=== PATIENT | female | born 1945 | race Caucasian/White ===

== ENCOUNTER 2018-01-02 12:01 | Emergency (ER) | payer MEDICARE, SELFPAY ==
[2018-01-02 12:02] VITALS: BP 154/73; PULSE 82; RESP 17; TEMP 36.6; O2SAT 98; BMI 41.8
--- NOTE | 2018-01-02 12:24 | ED.VISSUMM ---
- ER Visit Summary Date of Service: 01/02/18 Chief Complaint: Lower extremity cellulitis History of Present Illness: The patient is a 72 F cellulitis in the left leg a year ago. Patient states that she developed redness, swelling and discomfort left lower leg. She has had some chills but no fever. No history of DVT or PE. No recent travel, surgery or mobilization. Physical Examination: Well appearing older female. Vital signs stable afebrile. Does not look septic or toxic. No acute distress. HEENT exam unremarkable. Neck nontender. Lungs clear to auscultation bilaterally. Heart regular rate and rhythm no murmur. Abdomen soft nontender. Normal bowel sounds no peritoneal signs. She is moving all 4 extremities. They are neurovascularly intact. Her left lower leg is red and swollen consistent with cellulitis. It is warm to the touch. There is mild tenderness. There is no crepitance. No subcu air. No sloughing of skin. The left foot is neurovascular intact with palpable DP pulse. Clinically this looks like cellulitis. She has no DVT or or PE risk factors or history. There is no cords. The calf itself is not specifically tender. Right lower extremities unremarkable. Neurologic exam is normal. Test Results: None Emergency Department Course and Treatment: Had a similar event last June. Was treated as an outpatient. Clinically she appears to be capable of being treated as an outpatient. Her vital signs are stable. She is afebrile. She clinically looks good. She was placed on Keflex and Bactrim both for 10 days and follow-up with primary care physician Dr. Ahumada Treatment Plan: Keflex 4 times daily for 10 days. Bactrim twice daily for 10 days. Return if worse. Disposition: Discharge Impression: Acute left lower extremity cellulitis This note was generated with [employer] dictation software. It may contain incorrect words, spelling, and punctuation that were not noted in review of the chart prior to signing ED Disposition - Plan for ED Patient: Chief Complaint: Lower Extremity Injury Referrals: Suzie Huff MD [Primary Care Provider] -
--- NOTE | 2018-01-02 12:27 | ED.DEP ---
ED Disposition - Plan for ED Patient: Disposition: Home or Assisted Living Chief Complaint: Lower Extremity Injury Instructions: ED Infec Skin Cellulitis Prescriptions: Cephalexin [Keflex] 500 mg PO Q6 #40 cap Smz/Tmp Ds [Bactrim Ds] 1 tab PO BID #20 tab Referrals: Suzie Huff MD [Primary Care Provider] - 3-5 Days if not improving Additional Instructions: If infection is getting worse such as redness coming up her leg or you are feeling worse ER you may need to be admitted for IV antibiotics. Take both antibiotics the Keflex 1 pill 4 times a day and Bactrim 1 pill twice a day and that should take care of this infection. Follow-up with your primary care physician if not improving.
[2018-01-02] MEDS: Smz/Tmp Ds Tablet 1 TABLET PO (12:30)
[2018-01-02] MEDS: Cephalexin 250 MG Capsule 500 MG PO (12:30)
[2018-01-02 12:49] VITALS: PULSE 80; RESP 19; O2SAT 94
== END 2018-01-02 12:50 | disposition home or self-care (01) ==
LOC: ED 12:39
PROVIDERS: Emergency Provider Emergency Medicine; PCP Internal Medicine
DX: L03.116 Cellulitis of left lower limb (principal); B96.89 Other specified bacterial agents as the cause of diseases classified elsewhere; E03.9 Hypothyroidism, unspecified; Z79.899 Other long term (current) drug therapy
CPT/HCPCS: 99283

== ENCOUNTER → 2018-09-09 14:12 | Outpatient (CLI) | payer MEDICARE, SELFPAY ==
[2018-09-09 15:59] LABS: Absolute Lymphocyte Count 1.34 X10^3/ul (0.83-4.51); Absolute Neutrophil Count 3.7 X10^3/uL (2.0-7.7); Basophil# 0.01 X10^3/uL; Basophil% 0.2 % (0-1); Eosinophil# 0.21 X10^3/uL; Eosinophils% 3.7 % (0-5); Hematocrit 39.3 % (37-47); Hemoglobin 12.9 g/dl (12.0-15.0); Lymphocyte # 1.34 X10^3/ul (4.0); Lymphocyte % 23.3 % (19-41); Mean Corp Hgb Conc 32.8 g/gl (32-36); Mean Corpuscular Hgb 31.2 pg (27.0-32.0); Mean Corpuscular Volume 94.9 fL (81-99); Monocyte# 0.51 X10^3/uL; Monocyte% 8.9 % (0-10); Neutrophil # 3.67 X10^3/uL (2.7-7.7); Neutrophil % 63.7 % (47-70); Platelet Count 243 K/mm3 (150-450); RBC Distribution Width CV 12.8 % (11.6-14.6); Red Blood Count 4.14 M/mm3 (4.2-5.4); White Blood Count 5.8 K/mm3 (4.4-11.0)
[2018-09-09 16:01] LABS: POSITIVE COUNT NO; POSITIVE DIFFERENTIAL NO; POSITIVE MORPHOLOGY NO
[2018-09-09 16:36] LABS: AST(SGOT) 16 U/L (15-37); Alanine Aminotransfer ALT/SGPT 16 U/L (13-56); Albumin, Serum 3.3 g/dL (3.2-5.0); Alkaline Phosphatase 116 U/L (45-117); Bilirubin, Direct 0.09 mg/dL (0.00-0.30); Globulin 4.3 g/dL (2.2-4.2); Protein, Total 7.6 g/dL (6.4-8.2)
[2018-09-09 17:20] LABS: HIV - WCH Non-Reactive (Nonreactive)
--- OUTSIDE RECORDS SUMMARY | 2018-10-22 11:47 | XMS RPT_ITS ---
:1945 Author Organization [facility] Care Team Providers Name Role Phone SUZIE GREEN Attending Unavailable LARA WONG Referring Unavailable NICHO AVINA (INTERNATIONAL GUEST COORDINATOR) Attending Unavailable GANTA, SUZIE Referring Unavailable NICHO AVINA (INTERNATIONAL GUEST COORDINATOR) Referring Unavailable GANTA, SUZIE Referring Unavailable GANTA, SUZIE Attending Unavailable GANTA, SUZIE Referring Unavailable GANTA, SUZIE Referring Unavailable GANTA, SUZIE Attending Unavailable GANTA, SUZIE Referring Unavailable BRANDEE SLOAN (IRONWORKER WIRE FENCE ERECTOR) Attending Unavailable BRANDEE SLOAN (IRONWORKER WIRE FENCE ERECTOR) Referring Unavailable Frank Rome Attending Unavailable Frank Rome Referring Unavailable Ganta, Suzie Primary Care Unavailable Primay Care Physicia, No Primary Care Unavailable Hector Bazan Attending Unavailable PROBLEMS PROBLEMS DATE TYPE CONDITION / CODE ATTENDING STATUS SOURCE 09/27/2018 Active Other chest pain NA Active [facility] / R07.89(ICD-10) [place] Repository 09/09/2018 Unknown Z79.899 - Other Frank Rome Active [facility]current[facility] therapy / Repository Z79.899(ICD-10) 09/09/2018 Unknown L40.0 - Psoriasis Frank Rome Active [facility] vulgaris / Community L40.0(ICD-10) Hospital Repository 09/09/2018 Unknown L30.8 - Other Frank Rome Active [facility] dermatitis / Hospital L30.8(ICD-10) Repository 09/09/2018 Unknown L29.8 - Other Frank Rome Active [facility] pruritus / Community L29.8(ICD-10) Hospital Repository 04/22/2018 Active Encounter for NA Active [facility] screening [place] mammogram for Repository malignant neoplasm of breast / Z12.31(ICD-10) 03/18/2018 Active Unknown / SUZIE GREEN Active [facility] UNK(Unknown) [place] Repository 12/10/2015 Active Hypothyroidism, NA Active [facility] unspecified / [place] E03.9(ICD-10) Repository 11/18/2013 Active Vitamin D NA Active [facility] deficiency, [place] unspecified / Repository E55.9(ICD-10) 02/25/2018 Active Prediabetes / NA Active [facility] R73.03(ICD-10) [place] Rep[facility] 01/08/2018 Active Localized edema / NA Active [facility] R60.0(ICD-10) [place] Repository 01/08/2018 Active Pain in left NA Active [facility] lower leg / [place] M79.662(ICD-10) Repository PROCEDURES PROCEDURES No Procedure Records FoundRESULTS RESULTS CNOV Observed: 09/27/2018 Status: COMPLETED Source: [place] 3:00 PM [facility] REPOSITORY Office Visit (INTMWS) NIKI WRIGHT ([id number]) 1945 F Date Time Provider Department 09/27/18 3:00 PM BRANDEE SLOAN ([facility]) INTMWS During your visit today, we recorded the following information about you: Pulse Respiration Blood pressure Weight 72/minute 16/minute 126/53 107.5 kg Brandee Sloan APRN.CNS 09/27/2018 3:52 PM Signed OUTPATIENT VISIT DATE September 27, 2018 OUTPATIENT VISIT TYPE ESTABLISHED PRIMARY CARE PHYSICIAN: SUZIE GREEN MD CHIEF COMPLAINT: Patient presents with: High blood pressure History of Present Illness: Niki Wright is a 73 year old female who was last seen 09/18/2018. She has been seen in the past for ACTIVE PROBLEM LIST Other Atopic Dermatitis Vitamin D Deficiency Low Back Pain Acquired Hypothyroidism ANNALISA (obstructive sleep apnea) AHI 17, 50 in rem Essential Hypertension Bmi 40.0-44.9, Adult (Hcc) Impaired Glucose Metabolism Since the last visit, she states that earlier this week she has not been driving. Was sitting and resting for about 30 minutes after driving when she felt a heavy sensation in her substernal chest area. She reports it felt like a brick This was about 2 hours after lunch and persisted for about 2 hours. She reports her face felt hot when this occurred. Without report of headache, palpitations, shortness of breath, edema, presyncope or syncope. Unknown what blood pressure was at this time and she was in her car. She reports home blood pressures have been running in the 150 systolic range when checked. She noted eating vegetables and chicken and lettuce for lunch. Nelson improved with Advil and burping. No nausea or vomiting reported. No abdominal pain or reflux reported. She reports stable shortness of breath with 1 flight of stairs. Able to walk a flat surface unlimited by chest pain or shortness of breath. she reports currently with social stressors. Last 3 Encounter BP Readings: Date: BP: 09/18/2018 130/60 03/18/2018 104/58 01/08/2018 112/62 She reports left-sided chest wall pain about 18 months ago. Stress test was completed at [facility] and was negative. Current chest pain feels different, prior radiated to her neck and left arm. No recent hospital or ED visits. No new medical problems or medications. Able to obtain medications. No problems with taking medications or note side effects. PAST MEDICAL HISTORY Diagnosis Date - Acute pyelonephritis 08/01/2016 - Cervical disc disorder with radiculopathy 08/01/2016 - Diverticulosis of colon (without mention of hemorrhage) - Edema 02/05/2007 Left Leg Edema - Internal hemorrhoids without mention of complication - ANNALISA (obstructive sleep apnea) [employer] for Auto PAP machine - Osteoarthritis of spine with radiculopathy, cervical region 08/01/2016 - Other psoriasis - Psoriasis 03/07/2016 - Sciatica 08/16/2009 - Unspecified hypothyroidism Hypothyroidism PAST SURGICAL HISTORY Procedure Laterality Date - COLONOSCOP W/ OR W/O [facility] SPEC 03/31/09 - LIGATE FALLOPIAN TUBE Tubal ligation - PAST SURGICAL HISTORY OF 06/05/2006 Right shouler arrthroscopy rot cuff repair - PAST SURGICAL HISTORY OF 2008 left foot- bone spur FAMILY HISTORY Problem Relation Age of Onset - Breast Cancer Mother - Cancer Father esophagus - Cancer Sister ovaries Social History Substance Use Topics - Smoking status: Passive Smoke Exposure - Never Smoker - Smokeless tobacco: Never 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 COMPOUNDED PRESCRIPTION Knee high compression stocking left leg 20-30 mmHg Dx: M79.662, ,79.89 CPAP Initiate Auto PAP @ 5/20 cm of water with humidification. Heated humidity. Mask (per patient preference) optional chin strap (if indicated) , filters, tubing, humidifier and lifetime supplies. levothyroxine (SYNTHROID) 200 mcg tablet Take 1 tablet by mouth daily before breakfast. spironolactone-hctz 25/25 (ALDACTAZIDE) 25-25 mg per tablet take 1 tablet by mouth once daily triamcinolone acetonide (KENALOG) 0.1 % ointment Apply 1 application to affected area once daily as needed. amLODIPine (NORVASC) 2.5 mg tablet Take 1 tablet by mouth once daily. omeprazole (PRILOSEC) 20 mg capsule Take 1 capsule by mouth daily before breakfast. 1/2 hr before meal. REVIEW OF SYSTEMS: GENERAL: Negative for: Weight loss or gain, Fever or Chills, Weakness and Sleep difficulties. Physical Examination: BP 126/53[TruBP average[ Pulse 72 Resp 16 Wt 237 lb (107.5kg) LMP 04/14/2007 General appearance: Well appearing, alert, in no acute distress, well-hydrated, well nourished. Skin: Skin color, texture, turgor normal, no suspicious rashes or lesions Neck: Supple, no adenopathy; thyroid symmetric, normal size, no bruits, no JVD Lungs: Lungs clear to auscultation. No wheezing, rhonchi, rales Heart: RRR without murmur, gallop, or rubs. Abdomen:Abdomen soft, non-tender. Bowel sounds normal. No masses, organomegaly Extremities: No , edema, skin discoloration, clubbing or cyanosis. Good capillary refill. Musculoskeletal: Chest pain is not reproducible by palpation Peripheral pulses: Normal Neuro: Gait normal. Sensation grossly intact. Reviewed chart, outside records, tests I personally interviewed, confirmed and edited the above information if obtained by others. TESTING: Glucose (mg/dL) Date Value 02/26/2017 105 Potassium (mmol/L) Date Value 02/26/2017 4.0 Sodium (mmol/L) Date Value 02/26/2017 137 Chloride (mmol/L) Date Value 02/26/2017 98 CO2 (mmol/L) Date Value 02/26/2017 25 Creatinine (mg/dL) Date Value 02/26/2017 0.87 Creatinine, Whole Blood (iSTAT) (mg/dL) Date Value 06/21/2017 0.90 BUN (mg/dL) Date Value 02/26/2017 19 Anion Gap (mmol/L) Date Value 02/26/2017 14 Calcium (mg/dL) Date Value 02/26/2017 9.4 Glucose (mg/dL) Date Value 02/26/2017 105 Potassium (mmol/L) Date Value 02/26/2017 4.0 Sodium (mmol/L) Date Value 02/26/2017 137 Chloride (mmol/L) Date Value 02/26/2017 98 CO2 (mmol/L) Date Value 02/26/2017 25 Creatinine (mg/dL) Date Value 02/26/2017 0.87 Creatinine, Whole Blood (iSTAT) (mg/dL) Date Value 06/21/2017 0.90 BUN (mg/dL) Date Value 02/26/2017 19 Anion Gap (mmol/L) Date Value 02/26/2017 14 Calcium (mg/dL) Date Value 02/26/2017 9.4 Protein, Total (g/dL) Date Value 02/29/2016 Test sent to [facility]. Albumin (g/dL) Date Value 02/29/2016 Test sent to [facility]. Bilirubin, Total (mg/dL) Date Value 02/29/2016 Test sent to [facility]. Alkaline Phosphatase (U/L) Date Value 02/29/2016 Test sent to [facility]. AST (U/L) Date Value 02/29/2016 Test sent to [facility]. ALT (U/L) Date Value 02/29/2016 Test sent to [facility]. Hemoglobin (g/dL) Date Value 02/29/2016 Test sent to [facility]. Hematocrit (%) Date Value 02/29/2016 Test sent to [facility]. WBC (k/uL) Date Value 02/29/2016 Test sent to [facility]. Cholesterol, Total (mg/dL) Date Value 02/29/2016 Test sent to [facility]. HDL Cholesterol (mg/dL) Date Value 02/29/2016 Test sent to [facility]. LDL Cholesterol (mg/dL) Date Value 02/29/2016 Test sent to [facility]. Triglyceride (mg/dL) Date Value 02/29/2016 Test sent to [facility]. Hemoglobin A1C Date Value Ref Range Status 02/25/2018 5.5 4.3 - 5.6 % Final 03/01/2017 5.7 (H) 4.3 - 5.6 % Final Comment: [place] [employer] guidelines indicate that patients with HgbA1c in the range 5.7-6.4% are at increased risk for development of diabetes, and intervention by lifestyle modification may be beneficial. HgbA1c greater or equal to 6.5% is considered diagnostic of diabetes. Ejection Fraction: No results found IMPRESSION: Ms. Wright is a 73 year old woman presents with report of elevated blood pressures at home and atypical chest pain After my examination and review of data, I make the following recommendations. PLAN AND RECOMMENDATIONS: 1. Atypical chest pain - ICD9: 786.59, ICD10: R07.89 (primary diagnosis) Nonexertional, possible heartburn or reflux. Will trial PPI ?1 month to see if this prevents recurrence May also be due to elevation of blood pressure, does have elevations on arrival to office, normalizes after seated for a period of time EKG in office shows normal sinus rhythm without signs of ischemia ventricular rate 71 bpm OK interval 160 ms QRS duration 86 ms QTc 423 ms Stress test completed approximately 18 months ago at [facility] was negative for ischemia - ECG COMPLETE W INTERPRETATION - AMLODIPINE 2.5 MG TABLET 2. Essential hypertension - ICD9: 401.9, ICD10: I10 - Add amlodipine 2.5mg - Encourage dietary sodium restriction/DASH diet - Recommend regular aerobic exercise. - Recommend home blood pressure monitoring, to bring results in on next visit - Goal of BP <130/80 - AMLODIPINE 2.5 MG TABLET Advised: Take omeprazole once daily for one month then discontinue. Avoid foods that cause GI upset such as beverages with caffeine - coffee cola tea and alcohol Take amlodipine 2.5 mg once daily for blood pressure Check blood pressure once daily. Stop taking if feeling fatigued, dizzy or systolic blood pressure (top number) is less than 100 and call the office / nurse to let us know Return to clinic one month for recheck of blood pressure and symptoms. Advised to go to ER if develops chest pain, shortness of breath, or severe worsening of symptoms. Discussed risks, benefits, alternatives, and potential side effects of medications. Ms. Wright expressed understanding and agreed with the plan. Brandee Sloan APRN.IRONWORKER WIRE FENCE ERECTOR Brandee Sloan APRN.ROB 09/27/2018 3:41 PM Signed Take omeprazole once daily for one month then discontinue. Avoid foods that cause GI upset such as beverages with caffeine - coffee cola tea and alcohol Take amlodipine 2.5 mg once daily for blood pressure Check blood pressure once daily. Stop taking if feeling fatigued, dizzy or systolic blood pressure (top number) is less than 100 and call the office / nurse to let us know Return to clinic one month for recheck of blood pressure and symptoms. Referring Provider: SELF [[id number]] Allergies As of Date: 09/27/2018 Noted Allergy Reaction GABAPENTIN 09/02/2015 1 - Mental Status Change Comments: dizzy PERCOCET (OXYCODONE-ACETAMINOPHEN)06/28/2006 8 - GI Upset 11 - Vomiting Date Reviewed: 09/27/2018 Reviewed by: Aleshia Conway LPN - Fully Assessed Reason for Visit: High blood pressure [2419] Primary Visit Diagnosis:Atypical chest pain [R07.89] Other Visit Diagnosis:Essential hypertension [I10] Order(s):ECG COMPLETE W INTERPRETATION [ECG01] Order #: [id number] FUTURE omeprazole (PRILOSEC) 20 mg capsuleTake 1 capsule by mouth daily before breakfast. 1/2 hr before meal.Disp: 30 capsuleRfl: 0 amLODIPine (NORVASC) 2.5 mg tabletTake 1 tablet by mouth once daily.Disp: 30 tabletRfl: 2 Prescriptions as of 09/27/2018 Sig: CHOLECALCIFEROL (VITAMIN D3) * Take 1 tablet by mouth once d* COMPOUNDED PRESCRIPTION Knee high compression stockin* CPAP Initiate Auto PAP @ 5/20 cm o* LEVOTHYROXINE 200 MCG TABLET Take 1 tablet by mouth daily * SPIRONOLACTONE 25 MG-HYDROCHL* take 1 tablet by mouth once d* TRIAMCINOLONE ACETONIDE 0.1 %* Apply 1 application to affect* AMLODIPINE 2.5 MG TABLET Take 1 tablet by mouth once d* OMEPRAZOLE 20 MG CAPSULE,SY* Take 1 capsule by mouth daily* Problem List As Of Date 09/27/2018 Noted Resolved HYPOTHYROIDISM NOS [E03.9] INVALID FOR*12/11/2007 SPRAIN SHOULDER/ARM NOS [S43.409A, S46.919A] INVALID FOR*12/11/2007 SPRAIN ROTATOR CUFF [S43.429A] INVALID FOR*12/11/2007 Other psoriasis [L40.8] 03/07/2016 SURGERY FOLLOWUP NOS [Z09] INVALID FOR*12/11/2007 Edema [R60.9] INVALID FOR*03/01/2017 More... ECZEMATOUS DERMATITIS NOS [L25.9] INVALID FOR*12/10/2015 Other atopic dermatitis [L20.89] INVALID FOR* Unspecified pruritic disorder [L29.9] INVALID FOR*11/17/2013 EXCORIATION////SUPERFICIAL INJURY NEC [T07.XXXA]INVALID FOR*12/10/2015 Pyoderma, unspecified [L08.0] INVALID FOR*03/01/2017 XEROSIS///SEBACEOUS GLAND DIS NEC [L73.8] INVALID FOR*03/01/2017 HYPOTHYROIDISM NOS [E03.9] 12/10/2015 More... INTERTRIGO///ERYTHEMATOUS COND NEC [L53.8] INVALID FOR*12/10/2015 Dizziness and giddiness [R42] INVALID FOR*11/17/2013 Sciatica [M54.30] INVALID FOR*03/01/2017 More... Vitamin D deficiency [E55.9] INVALID FOR* More... Low back pain [M54.5] INVALID FOR* Acquired hypothyroidism [E03.9] INVALID FOR* Psoriasis [L40.9] INVALID FOR*03/01/2017 ANNALISA (obstructive sleep apnea) AHI 17, 50 in re*INVALID FOR* More... Acute pyelonephritis [N10] INVALID FOR*03/01/2017 Essential hypertension [I10] INVALID FOR* Osteoarthritis of spine with radiculopathy, cer*INVALID FOR*03/01/2017 Arm paresthesia, left [R20.2] INVALID FOR*03/01/2017 Cervical disc disorder with radiculopathy [M50.*INVALID FOR*03/01/2017 BMI 40.0-44.9, adult (HCC) [Z68.41] INVALID FOR* Impaired glucose metabolism [R73.09] INVALID FOR* Other instructions from your clinician: Take omeprazole once daily for one month then discontinue. Avoid foods that cause GI upset such as beverages with caffeine - coffee cola tea and alcohol Take amlodipine 2.5 mg once daily for blood pressure Check blood pressure once daily. Stop taking if feeling fatigued, dizzy or systolic blood pressure (top number) is less than 100 and call the office / nurse to let us know Return to clinic one month for recheck of blood pressure and symptoms. Prescriptions ordered this encounter Disp Refills Start End OMEPRAZOLE 20 MG CAPSULE,DELAYED REL* 30 c* 0 09/27/2018 Route: ORAL Sig: Take 1 capsule by mouth daily before breakfast. 1/2 hr before meal. AMLODIPINE 2.5 MG TABLET 30 t* 2 09/27/2018 Route: ORAL Sig: Take 1 tablet by mouth once daily. Encounter Status:Closed by BRANDEE HAYES on 09/27/18 PROGRESS Observed: 09/27/2018 Status: COMPLETED Source: [place] 2:48 PM [facility] REPOSITORY HNO ID: [id number] Author: Brandee (Rob) Luther Service: (none) Author Type: Nurse Specialist Type: Progress Notes Filed: 09/27/2018 3:52 PM Note Text: OUTPATIENT VISIT DATE September 27, 2018 OUTPATIENT VISIT TYPE ESTABLISHED PRIMARY CARE PHYSICIAN: SUZIE GREEN MD CHIEF COMPLAINT: Patient presents with: High blood pressure History of Present Illness: Niki Wright is a 73 year old female who was last seen 09/18/2018. She has been seen in the past for ACTIVE PROBLEM LIST Other Atopic Dermatitis Vitamin D Deficiency Low Back Pain Acquired Hypothyroidism ANNALISA (obstructive sleep apnea) AHI 17, 50 in rem Essential Hypertension Bmi 40.0-44.9, Adult (Hcc) Impaired Glucose Metabolism Since the last visit, she states that earlier this week she has not been driving. Was sitting and resting for about 30 minutes after driving when she felt a heavy sensation in her substernal chest area. She reports it felt like a brick This was about 2 hours after lunch and persisted for about 2 hours. She reports her face felt hot when this occurred. Without report of headache, palpitations, shortness of breath, edema, presyncope or syncope. Unknown what blood pressure was at this time and she was in her car. She reports home blood pressures have been running in the 150 systolic range when checked. She noted eating vegetables and chicken and lettuce for lunch. Nelson improved with Advil and burping. No nausea or vomiting reported. No abdominal pain or reflux reported. She reports stable shortness of breath with 1 flight of stairs. Able to walk a flat surface unlimited by chest pain or shortness of breath. she reports currently with social stressors. Last 3 Encounter BP Readings: Date: BP: 09/18/2018 130/60 03/18/2018 104/58 01/08/2018 112/62 She reports left-sided chest wall pain about 18 months ago. Stress test was completed at [facility] and was negative. Current chest pain feels different, prior radiated to her neck and left arm. No recent hospital or ED visits. No new medical problems or medications. Able to obtain medications. No problems with taking medications or note side effects. PAST MEDICAL HISTORY Diagnosis Date - Acute pyelonephritis 08/01/2016 - Cervical disc disorder with radiculopathy 08/01/2016 - Diverticulosis of colon (without mention of hemorrhage) - Edema 02/05/2007 Left Leg Edema - Internal hemorrhoids without mention of complication - ANNALISA (obstructive sleep apnea) [facility] for Auto PAP machine - Osteoarthritis of spine with radiculopathy, cervical region 08/01/2016 - Other psoriasis - Psoriasis 03/07/2016 - Sciatica 08/16/2009 - Unspecified hypothyroidism Hypothyroidism PAST SURGICAL HISTORY Procedure Laterality Date - COLONOSCOP W/ OR W/O [facility] SPEC 03/31/09 - LIGATE FALLOPIAN TUBE Tubal ligation - PAST SURGICAL HISTORY OF 06/05/2006 Right shouler arrthroscopy rot cuff repair - PAST SURGICAL HISTORY OF 2008 left foot- bone spur FAMILY HISTORY Problem Relation Age of Onset - Breast Cancer Mother - Cancer Father esophagus - Cancer Sister ovaries Social History Substance Use Topics - Smoking status: Passive Smoke Exposure - Never Smoker - Smokeless tobacco: Never 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 COMPOUNDED PRESCRIPTION Knee high compression stocking left leg 20-30 mmHg Dx: M79.662, ,79.89 CPAP Initiate Auto PAP @ 5/20 cm of water with humidification. Heated humidity. Mask (per patient preference) optional chin strap (if indicated) , filters, tubing, humidifier and lifetime supplies. levothyroxine (SYNTHROID) 200 mcg tablet Take 1 tablet by mouth daily before breakfast. spironolactone-hctz 25/25 (ALDACTAZIDE) 25-25 mg per tablet take 1 tablet by mouth once daily triamcinolone acetonide (KENALOG) 0.1 % ointment Apply 1 application to affected area once daily as needed. amLODIPine (NORVASC) 2.5 mg tablet Take 1 tablet by mouth once daily. omeprazole (PRILOSEC) 20 mg capsule Take 1 capsule by mouth daily before breakfast. 1/2 hr before meal. REVIEW OF SYSTEMS: GENERAL: Negative for: Weight loss or gain, Fever or Chills, Weakness and Sleep difficulties. Physical Examination: BP 126/53[TruBP average[ Pulse 72 Resp 16 Wt 237 lb (107.5kg) LMP 04/14/2007 General appearance: Well appearing, alert, in no acute distress, well-hydrated, well nourished. Skin: Skin color, texture, turgor normal, no suspicious rashes or lesions Neck: Supple, no adenopathy; thyroid symmetric, normal size, no bruits, no JVD Lungs: Lungs clear to auscultation. No wheezing, rhonchi, rales Heart: RRR without murmur, gallop, or rubs. Abdomen:Abdomen soft, non-tender. Bowel sounds normal. No masses, organomegaly Extremities: No , edema, skin discoloration, clubbing or cyanosis. Good capillary refill. Musculoskeletal: Chest pain is not reproducible by palpation Peripheral pulses: Normal Neuro: Gait normal. Sensation grossly intact. Reviewed chart, outside records, tests I personally interviewed, confirmed and edited the above information if obtained by others. TESTING: Glucose (mg/dL) Date Value 02/26/2017 105 Potassium (mmol/L) Date Value 02/26/2017 4.0 Sodium (mmol/L) Date Value 02/26/2017 137 Chloride (mmol/L) Date Value 02/26/2017 98 CO2 (mmol/L) Date Value 02/26/2017 25 Creatinine (mg/dL) Date Value 02/26/2017 0.87 Creatinine, Whole Blood (iSTAT) (mg/dL) Date Value 06/21/2017 0.90 BUN (mg/dL) Date Value 02/26/2017 19 Anion Gap (mmol/L) Date Value 02/26/2017 14 Calcium (mg/dL) Date Value 02/26/2017 9.4 Glucose (mg/dL) Date Value 02/26/2017 105 Potassium (mmol/L) Date Value 02/26/2017 4.0 Sodium (mmol/L) Date Value 02/26/2017 137 Chloride (mmol/L) Date Value 02/26/2017 98 CO2 (mmol/L) Date Value 02/26/2017 25 Creatinine (mg/dL) Date Value 02/26/2017 0.87 Creatinine, Whole Blood (iSTAT) (mg/dL) Date Value 06/21/2017 0.90 BUN (mg/dL) Date Value 02/26/2017 19 Anion Gap (mmol/L) Date Value 02/26/2017 14 Calcium (mg/dL) Date Value 02/26/2017 9.4 Protein, Total (g/dL) Date Value 02/29/2016 Test sent to [facility]. Albumin (g/dL) Date Value 02/29/2016 Test sent to [facility]. Bilirubin, Total (mg/dL) Date Value 02/29/2016 Test sent to [facility]. Alkaline Phosphatase (U/L) Date Value 02/29/2016 Test sent to [facility]. AST (U/L) Date Value 02/29/2016 Test sent to [facility]. ALT (U/L) Date Value 02/29/2016 Test sent to [facility]. Hemoglobin (g/dL) Date Value 02/29/2016 Test sent to [facility]. Hematocrit (%) Date Value 02/29/2016 Test sent to [facility]. WBC (k/uL) Date Value 02/29/2016 Test sent to [facility]. Cholesterol, Total (mg/dL) Date Value 02/29/2016 Test sent to [facility]. HDL Cholesterol (mg/dL) Date Value 02/29/2016 Test sent to [facility]. LDL Cholesterol (mg/dL) Date Value 02/29/2016 Test sent to [facility]. Triglyceride (mg/dL) Date Value 02/29/2016 Test sent to [facility]. Hemoglobin A1C Date Value Ref Range Status 02/25/2018 5.5 4.3 - 5.6 % Final 03/01/2017 5.7 (H) 4.3 - 5.6 % Final Comment: [place] [employer] guidelines indicate that patients with HgbA1c in the range 5.7-6.4% are at increased risk for development of diabetes, and intervention by lifestyle modification may be beneficial. HgbA1c greater or equal to 6.5% is considered diagnostic of diabetes. Ejection Fraction: No results found IMPRESSION: Ms. Wright is a 73 year old woman presents with report of elevated blood pressures at home and atypical chest pain After my examination and review of data, I make the following recommendations. PLAN AND RECOMMENDATIONS: 1. Atypical chest pain - ICD9: 786.59, ICD10: R07.89 (primary diagnosis) Nonexertional, possible heartburn or reflux. Will trial PPI ?1 month to see if this prevents recurrence May also be due to elevation of blood pressure, does have elevations on arrival to office, normalizes after seated for a period of time EKG in office shows normal sinus rhythm without signs of ischemia ventricular rate 71 bpm OK interval 160 ms QRS duration 86 ms QTc 423 ms Stress test completed approximately 18 months ago at [facility] was negative for ischemia - ECG COMPLETE W INTERPRETATION - AMLODIPINE 2.5 MG TABLET 2. Essential hypertension - ICD9: 401.9, ICD10: I10 - Add amlodipine 2.5mg - Encourage dietary sodium restriction/DASH diet - Recommend regular aerobic exercise. - Recommend home blood pressure monitoring, to bring results in on next visit - Goal of BP <130/80 - AMLODIPINE 2.5 MG TABLET Advised: Take omeprazole once daily for one month then discontinue. Avoid foods that cause GI upset such as beverages with caffeine - coffee cola tea and alcohol Take amlodipine 2.5 mg once daily for blood pressure Check blood pressure once daily. Stop taking if feeling fatigued, dizzy or systolic blood pressure (top number) is less than 100 and call the office / nurse to let us know Return to clinic one month for recheck of blood pressure and symptoms. Advised to go to ER if develops chest pain, shortness of breath, or severe worsening of symptoms. Discussed risks, benefits, alternatives, and potential side effects of medications. Ms. Wright expressed understanding and agreed with the plan. Brandee Sloan APRN.IRONWORKER WIRE FENCE ERECTOR PROGRESS Observed: 09/18/2018 Status: COMPLETED Source: [place] 9:55 AM [facility] REPOSITORY HNO ID: [id number] Author: Suzie Green Service: (none) Author Type: Physician Type: Progress Notes Filed: 09/18/2018 5:41 PM Note Text: Reason for Visit Patient presents with: Established Patient: 6 month follow up-labs Niki Wright is a 73 year old female who presents here today for Above Complaints.. Health Maintenance HEPATITIS C SCREENING DTAP,TDAP,TD(1 - Tdap) PAP EVERY 3 YEARS (65-80 YEARS OLD) HPI Niki Wright is a 71 year old female who presents for follow up of HTN, ANNALISA, Lisa D def, Thyroid, Dermatitis, and BMI elevated. Labs were done. ?Her glucose was elevated slightly, which is new. ? Has hypothyroidism on the current medication of 200 mcg she is doing well. 6 months ago tsh was normal at 1.7 her weight has been going up slowly she denies constipation, depression , low energy or dryness of skin. ? She has to give blood work for lipids ? BP is well controlled on current regimen of medicines -spironolactone 25/hctz25 which is tolerated well. No significant side effects. He bp is high because she has a lot stress at home, she is going to have a complete knee surgery, she has been having to help her son, and his children. She uses her cpap machine regularly, feels rested on it. I have a lot of blood work from Dr. Rome who checked her for hepc, hiv, hep b, tb , liver function, cbc were normal. Her hba1c was normal For the dermatitis she want me to refill the medication, ointment, Dr Rome wants to give her an injection but she is waiting to see what the insurance will cover. No problem-specific Assessment AND Plan notes found for this encounter. PAST MEDICAL HISTORY Diagnosis Date - Acute pyelonephritis 08/01/2016 - Cervical disc disorder with radiculopathy 08/01/2016 - Diverticulosis of colon (without mention of hemorrhage) - Edema 02/05/2007 Left Leg Edema - Internal hemorrhoids without mention of complication - ANNALISA (obstructive sleep apnea) [facility] for Auto PAP machine - Osteoarthritis of spine with radiculopathy, cervical region 08/01/2016 - Other psoriasis - Psoriasis 03/07/2016 - Sciatica 08/16/2009 - Unspecified hypothyroidism Hypothyroidism PAST SURGICAL HISTORY Procedure Laterality Date - COLONOSCOP W/ OR W/O [facility] SPEC 03/31/09 - LIGATE FALLOPIAN TUBE Tubal ligation - PAST SURGICAL HISTORY OF 06/05/2006 Right shouler arrthroscopy rot cuff repair - PAST SURGICAL HISTORY OF 2008 left foot- bone spur FAMILY HISTORY Problem Relation Age of Onset - Breast Cancer Mother - Cancer Father esophagus - Cancer Sister ovaries Social History Substance Use Topics - Smoking status: Passive Smoke Exposure - Never Smoker - Smokeless tobacco: Never 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 Pertinent Lab/Diagnostic Studies are reviewed and discussed today Current Outpatient Prescriptions: - cholecalciferol (VITAMIN D3) 5,000 unit tab - spironolactone-hctz 25/25 (ALDACTAZIDE) 25-25 mg per tablet - levothyroxine (SYNTHROID) 200 mcg tablet - COMPOUNDED PRESCRIPTION - CPAP - triamcinolone acetonide (KENALOG) 0.1 % ointment Review of Systems CONSTITUTIONAL: No fevers, chills night sweats, unintended weight loss CARDIOVASCULAR: No chest pain, dyspnea, palpitations, orthopnea, PND, ankle edema. PULM: No dyspnea, unexplained cough. GI: No dysphagia/odynophagia, problematic reflux, constipation, diarrhea, changes in stool habits, hematochezia, melena. : No new urinary complaints, including dysuria, gross hematuria or pyuria. NEURO: No new balance problems, peripheral weakness/paresthesias or numbness of concern. Physical Exam BP 140/60 (BP Site: Left Arm, BP Position: Sitting, BP Cuff Size: Large Adult) Pulse 74 Resp 14 Ht 156.2 cm (5' 1.5) Wt 108.9 kg (240 lb) LMP 04/14/2007 SpO2 100% BMI 44.61 kg/m? General appearance: Well appearing, alert, in no acute distress, well nourished. Skin: Skin color, texture, turgor normal, no suspicious rashes or lesions Head: Normocephalic, no masses, lesions, tenderness or abnormalities Eyes: Anicteric sclera. Pupils are equally round and reactive to light. Extraocular movements are intact. Lungs: Lungs clear to auscultation. No wheezing, rhonchi, rales Heart: RRR without murmur, gallop, or rubs. Extremities: No deformities, edema, skin discoloration, clubbing or cyanosis. Good capillary refill. ASSESSMENT/PLAN: 1. Acquired hypothyroidism - ICD9: 244.9, ICD10: E03.9 (primary diagnosis) - Instructed patient on importance of taking on an empty stomach either first thing in the morning or at bedtime. - TSH BLD 2. ANNALISA (obstructive sleep apnea) AHI 17, 50 in rem - ICD9: 327.23, ICD10: G47.33 To cont the cpap machine 3. Other atopic dermatitis - ICD9: 691.8, ICD10: L20.89 - Dry skin care instructions reviewed - Use mild soap like Dove, Aveeno or Cetaphil - limit shower/bath to less than 15 minutes with warm, not hot, water - BID use of recommended emollients such as Cetaphil, Eucerin Plus, Aveeno, Aquaphor - Follow up if symptoms persist or worsen. 4. Mixed hyperlipidemia - ICD9: 272.2, ICD10: E78.2 - good control - Continue current medication. - LIPID PANEL BASIC SUZIE GREEN MD CNOV Observed: 09/18/2018 Status: COMPLETED Source: [place] 9:40 AM [facility] RE[facility] Office Visit (INTMWS) NIKI WRIGHT ([id number]) 1945 F Date Time Provider Department 09/18/18 9:40 AM SUZIE GREEN INTMWS During your visit today, we recorded the following information about you: Pulse Respiration Blood pressure Weight 74/minute 14/minute 130/60 108.9 kg Height 1.562 m SUZIE GREEN MD 09/18/2018 5:41 PM Signed Reason for Visit Patient presents with: Established Patient: 6 month follow up-labs Niki Wright is a 73 year old female who presents here today for Above Complaints.. Health Maintenance HEPATITIS C SCREENING DTAP,TDAP,TD(1 - Tdap) PAP EVERY 3 YEARS (65-80 YEARS OLD) HPI Niki Wright is a 71 year old female who presents for follow up of HTN, ANNALISA, Lisa D def, Thyroid, Dermatitis, and BMI elevated. Labs were done. ?Her glucose was elevated slightly, which is new. ? Has hypothyroidism on the current medication of 200 mcg she is doing well. 6 months ago tsh was normal at 1.7 her weight has been going up slowly she denies constipation, depression , low energy or dryness of skin. ? She has to give blood work for lipids ? BP is well controlled on current regimen of medicines -spironolactone 25/hctz25 which is tolerated well. No significant side effects. He bp is high because she has a lot stress at home, she is going to have a complete knee surgery, she has been having to help her son, and his children. She uses her cpap machine regularly, feels rested on it. I have a lot of blood work from Dr. Rome who checked her for hepc, hiv, hep b, tb , liver function, cbc were normal. Her hba1c was normal For the dermatitis she want me to refill the medication, ointment, Dr Rome wants to give her an injection but she is waiting to see what the insurance will cover. No problem-specific Assessment AND Plan notes found for this encounter. PAST MEDICAL HISTORY Diagnosis Date - Acute pyelonephritis 08/01/2016 - Cervical disc disorder with radiculopathy 08/01/2016 - Diverticulosis of colon (without mention of hemorrhage) - Edema 02/05/2007 Left Leg Edema - Internal hemorrhoids without mention of complication - ANNALISA (obstructive sleep apnea) [facility] [employer] for Auto PAP machine - Osteoarthritis of spine with radiculopathy, cervical region 08/01/2016 - Other psoriasis - Psoriasis 03/07/2016 - Sciatica 08/16/2009 - Unspecified hypothyroidism Hypothyroidism PAST SURGICAL HISTORY Procedure Laterality Date - COLONOSCOP W/ OR W/O [facility] SPEC 03/31/09 - LIGATE FALLOPIAN TUBE Tubal ligation - PAST SURGICAL HISTORY OF 06/05/2006 Right shouler arrthroscopy rot cuff repair - PAST SURGICAL HISTORY OF 2008 left foot- bone spur FAMILY HISTORY Problem Relation Age of Onset - Breast Cancer Mother - Cancer Father esophagus - Cancer Sister ovaries Social History Substance Use Topics - Smoking status: Passive Smoke Exposure - Never Smoker - Smokeless tobacco: Never 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 Pertinent Lab/Diagnostic Studies are reviewed and discussed today Current Outpatient Prescriptions: - cholecalciferol (VITAMIN D3) 5,000 unit tab - spironolactone-hctz 25/25 (ALDACTAZIDE) 25-25 mg per tablet - levothyroxine (SYNTHROID) 200 mcg tablet - COMPOUNDED PRESCRIPTION - CPAP - triamcinolone acetonide (KENALOG) 0.1 % ointment Review of Systems CONSTITUTIONAL: No fevers, chills night sweats, unintended weight loss CARDIOVASCULAR: No chest pain, dyspnea, palpitations, orthopnea, PND, ankle edema. PULM: No dyspnea, unexplained cough. GI: No dysphagia/odynophagia, problematic reflux, constipation, diarrhea, changes in stool habits, hematochezia, melena. : No new urinary complaints, including dysuria, gross hematuria or pyuria. NEURO: No new balance problems, peripheral weakness/paresthesias or numbness of concern. Physical Exam BP 140/60 (BP Site: Left Arm, BP Position: Sitting, BP Cuff Size: Large Adult) Pulse 74 Resp 14 Ht 156.2 cm (5' 1.5) Wt 108.9 kg (240 lb) LMP 04/14/2007 SpO2 100% BMI 44.61 kg/m? General appearance: Well appearing, alert, in no acute distress, well nourished. Skin: Skin color, texture, turgor normal, no suspicious rashes or lesions Head: Normocephalic, no masses, lesions, tenderness or abnormalities Eyes: Anicteric sclera. Pupils are equally round and reactive to light. Extraocular movements are intact. Lungs: Lungs clear to auscultation. No wheezing, rhonchi, rales Heart: RRR without murmur, gallop, or rubs. Extremities: No deformities, edema, skin discoloration, clubbing or cyanosis. Good capillary refill. ASSESSMENT/PLAN: 1. Acquired hypothyroidism - ICD9: 244.9, ICD10: E03.9 (primary diagnosis) - Instructed patient on importance of taking on an empty stomach either first thing in the morning or at bedtime. - TSH BLD 2. ANNALISA (obstructive sleep apnea) AHI 17, 50 in rem - ICD9: 327.23, ICD10: G47.33 To cont the cpap machine 3. Other atopic dermatitis - ICD9: 691.8, ICD10: L20.89 - Dry skin care instructions reviewed - Use mild soap like Dove, Aveeno or Cetaphil - limit shower/bath to less than 15 minutes with warm, not hot, water - BID use of recommended emollients such as Cetaphil, Eucerin Plus, Aveeno, Aquaphor - Follow up if symptoms persist or worsen. 4. Mixed hyperlipidemia - ICD9: 272.2, ICD10: E78.2 - good control - Continue current medication. - LIPID PANEL BASIC SUZIE GREEN MD Referring Provider: SUZIE GREEN [[id number]] Allergies As of Date: 09/18/2018 Noted Allergy Reaction GABAPENTIN 09/02/2015 1 - Mental Status Change Comments: dizzy PERCOCET (OXYCODONE-ACETAMINOPHEN)06/28/2006 8 - GI Upset 11 - Vomiting Date Reviewed: 09/18/2018 Reviewed by: Ryann Burt LPN - Fully Assessed Reason for Visit: Established Patient [175] Cmt: 6 month follow up-labs Primary Visit Diagnosis:Acquired hypothyroidism [E03.9] Other Visit Diagnoses:ANNALISA (obstructive sleep apnea) AHI 17, 50 in rem [G47.33] Other atopic dermatitis [L20.89] Mixed hyperlipidemia [E78.2] Order(s):levothyroxine (SYNTHROID) 200 mcg tabletTake 1 tablet by mouth daily before breakfast.Disp: 90 tabletRfl: 3 TSH BLD [SQTSH] Order #: [id number] FUTURE LIPID PANEL BASIC [SQLIPB] Order #: [id number] FUTURE triamcinolone acetonide (KENALOG) 0.1 % ointmentApply 1 application to affected area once daily as needed.Disp: 80 gRfl: 1 Prescriptions as of 09/18/2018 Sig: LEVOTHYROXINE 200 MCG TABLET Take 1 tablet by mouth daily * TRIAMCINOLONE ACETONIDE 0.1 %* Apply 1 application to affect* CHOLECALCIFEROL (VITAMIN D3) * Take 1 tablet by mouth once d* SPIRONOLACTONE 25 MG-HYDROCHL* take 1 tablet by mouth once d* COMPOUNDED PRESCRIPTION Knee high compression stockin* CPAP Initiate Auto PAP @ 5/20 cm o* Problem List As Of Date 09/18/2018 Noted Resolved HYPOTHYROIDISM NOS [E03.9] INVALID FOR*12/11/2007 SPRAIN SHOULDER/ARM NOS [S43.409A, S46.919A] INVALID FOR*12/11/2007 SPRAIN ROTATOR CUFF [S43.429A] INVALID FOR*12/11/2007 Other psoriasis [L40.8] 03/07/2016 SURGERY FOLLOWUP NOS [Z09] INVALID FOR*12/11/2007 Edema [R60.9] INVALID FOR*03/01/2017 More... ECZEMATOUS DERMATITIS NOS [L25.9] INVALID FOR*12/10/2015 Other atopic dermatitis [L20.89] INVALID FOR* Unspecified pruritic disorder [L29.9] INVALID FOR*11/17/2013 EXCORIATION////SUPERFICIAL INJURY NEC [T07.XXXA]INVALID FOR*12/10/2015 Pyoderma, unspecified [L08.0] INVALID FOR*03/01/2017 XEROSIS///SEBACEOUS GLAND DIS NEC [L73.8] INVALID FOR*03/01/2017 HYPOTHYROIDISM NOS [E03.9] 12/10/2015 More... INTERTRIGO///ERYTHEMATOUS COND NEC [L53.8] INVALID FOR*12/10/2015 Dizziness and giddiness [R42] INVALID FOR*11/17/2013 Sciatica [M54.30] INVALID FOR*03/01/2017 More... Vitamin D deficiency [E55.9] INVALID FOR* More... Low back pain [M54.5] INVALID FOR* Acquired hypothyroidism [E03.9] INVALID FOR* Psoriasis [L40.9] INVALID FOR*03/01/2017 ANNALISA (obstructive sleep apnea) AHI 17, 50 in re*INVALID FOR* More... Acute pyelonephritis [N10] INVALID FOR*03/01/2017 Essential hypertension [I10] INVALID FOR* Osteoarthritis of spine with radiculopathy, cer*INVALID FOR*03/01/2017 Arm paresthesia, left [R20.2] INVALID FOR*03/01/2017 Cervical disc disorder with radiculopathy [M50.*INVALID FOR*03/01/2017 BMI 40.0-44.9, adult (HCC) [Z68.41] INVALID FOR* Impaired glucose metabolism [R73.09] INVALID FOR* Prescriptions ordered this encounter Disp Refills Start End LEVOTHYROXINE 200 MCG TABLET 90 t* 3 09/18/2018 Route: ORAL Sig: Take 1 tablet by mouth daily before breakfast. TRIAMCINOLONE ACETONIDE 0.1 % TOPICA* 80 g 1 09/18/2018 Route: TOPICAL Sig: Apply 1 application to affected area once daily as needed. Medications Discontinued During This Encounter levothyroxine (SYNTHROID) 200 mcg ta* 30 t* 12 08/23/2017 09/18/2018 Sig: take 1 tablet by mouth once daily BEFORE BREAKFAST Disc: Reason for discontinue is not on file. triamcinolone acetonide (KENALOG) 0.* 80 g 1 03/01/2017 09/18/2018 Route: TOPICAL Sig: Apply 1 application to affected area once daily as needed. Disc: Reason for discontinue is not on file. Encounter Status:Closed by SUZIE GREEN MD on 09/18/18 CBC W/DIFF, AUTOMATED Collected: 09/09/2018 Status: F Source: [place] 2:17 PM [facility] REPOSITORY TYPE CODE TESTS RESULT OUT OF RANGE REFERENCE UNITS LAB L100.1000 4.4-11.0 K/mm3 Normal WBC 5.8 LAB L100.1200 4.2-5.4 M/mm3 Low RBC 4.14 LAB L100.1300 12.0-15.0 g/dl Normal HGB 12.9 LAB L100.1400 37-47 % Normal HCT 39.3 LAB L100.1500 81-99 fL Normal MCV 94.9 LAB L100.1600 27.0-32.0 pg Normal MCH 31.2 LAB L100.1700 32-36 g/gl Normal MCHC 32.8 LAB L100.1810 11.6-14.6 % Normal RDW CV 12.8 LAB L100.1820 35.1-43.9 fl Normal RDW SD 43.0 LAB L100.1900 150-450 K/mm3 Normal PLT 243 LAB L100.2000 6.2-12.0 fl Normal MPV 10.0 LAB L100.2100 47-70 % Normal NEUT% 63.7 LAB L100.2200 19-41 % Normal LY% 23.3 LAB L100.2300 0-10 % Normal MONO% 8.9 LAB L100.2400 0-5 % Normal EO% 3.7 LAB L100.2500 0-1 % Normal BASO% 0.2 LAB L100.2550 0.0-0.9 % Normal IM GRAN % 0.200 Result Comment: IG% - Immature Granulocytes (promyelocytes, myelocytes and metamyelocytes) > 1% indicates that a LEFT SHIFT is Present. LAB L100.2620 2.0-7.7 X10 3/uL Normal Absolute Neut 3.7 LAB L100.2720 0.83-4.51 X10 3/ul Normal Absolute Lymph 1.34 Performed By: #### L100.0100 #### [facility] [address] [place], [place], [address] LIVER PROFILE Collected: 09/09/2018 Status: F Source: [place] 2:17 PM [facility] REPOSITORY TYPE CODE TESTS RESULT OUT OF RANGE REFERENCE UNITS LAB L501.1500 6.4-8.2 g/dL Normal T PROT 7.6 LAB L501.1800 3.2-5.0 g/dL Normal ALB 3.3 LAB L501.1950 2.2-4.2 g/dL High GLOB 4.3 LAB L501.4100 15-37 U/L Normal AST 16 LAB L501.4305 45-117 U/L Normal ALK P 116 LAB L501.4405 13-56 U/L Normal ALT 16 LAB L501.4600 0.20-1.00 mg/dL Normal T BILI 0.30 LAB L501.4700 0.00-0.30 mg/dL Normal D BILI 0.09 Performed By: #### L500.3400 #### [facility] [address] [place], [address] HIV - WC Collected: 09/09/2018 Status: F Source: [place] 2:17 PM [facility] REPOSITORY TYPE CODE TESTS RESULT OUT OF RANGE REFERENCE UNITS LAB L3890.6005 Nonreactive Normal HIV - [facility] Non-Reactive Performed By: #### L3890.6005 #### [facility] [address], [place], [address] HEPATITIS B SURFACE Collected: 09/09/2018 Status: F Source: [place] AG 2:17 PM [facility] REPOSITORY TYPE CODE TESTS RESULT OUT OF RANGE REFERENCE UNITS LAB L3100.0400 Normal HB SURF AG Result Comment: TEST RESULT LIMITS HBsAg Screen Negative Negative TESTING PERFORMED AT [facility]. ORIGINAL REPORT ON FILE IN LAB CONTAINS ADDITIONAL TEST SITE INFORMATION. Performed By: #### L3100.0390, L3100.0460, L3100.0528, L3100.0625, L3400.7000 #### [facility] (refer to report for specific site) refer to report for address and phone number HEPATITIS B CORE AB Collected: 09/09/2018 Status: F Source: [place] T[place] 2:17 PM [facility] REPOSITORY TYPE CODE TESTS RESULT OUT OF RANGE REFERENCE UNITS LAB L3100.0460 Normal HEP B CORE,TOT Result Comment: TEST RESULT LIMITS Hep B Core Ab, Tot Negative Negative [facility] ORIGINAL REPORT ON FILE IN LAB CONTAINS ADDITIONAL TEST SITE INFORMATION. Performed By: #### L3100.0390, L3100.0460, L3100.0528, L3100.0625, L3400.7000 #### [facility] (refer to report for specific site) refer to report for address and phone number HEP B SURFACE Collected: 09/09/2018 Status: F Source: [place] ANTIBODIES 2:17 PM [facility] REPOSITORY TYPE CODE TESTS RESULT OUT OF RANGE REFERENCE UNITS LAB L3100.0528 Normal Hep B Kimber AB Result Comment: TEST RESULT LIMITS Hep B Surface Ab Hep B Surface Ab, Qual Non Reactive Non Reactive: Inconsistent with immunity, less than 10 mIU/mL Reactive: Consistent with immunity, greater than 9.9 mIU/mL TESTING PERFORMED AT [facility]. ORIGINAL REPORT ON FILE IN LAB CONTAINS ADDITIONAL TEST SITE INFORMATION. Performed By: #### L3100.0390, L3100.0460, L3100.0528, L3100.0625, L3400.7000 #### [facility] (refer to report for specific site) refer to report for address and phone number HEPATITIS C ANTIBODIES Collected: 09/09/2018 Status: F Source: [place] 2:17 PM [facility] REPOSITORY TYPE CODE TESTS RESULT OUT OF RANGE REFERENCE UNITS LAB L3100.0650 Normal HEP C AB Result Comment: TEST RESULT LIMITS HCV Antibody Hep C Virus Ab 0.2 s/co ratio 0.0 - 0.9 Negative: < 0.8 Indeterminate: 0.8 - 0.9 Positive: > 0.9 The CDC recommends that a positive HCV antibody result be followed up with a HCV Nucleic Acid Amplification test ([id number]). TESTING PERFORMED AT [facility]. ORIGINAL REPORT ON FILE IN LAB CONTAINS ADDITIONAL TEST SITE INFORMATION. Performed By: #### L3100.0390, L3100.0460, L3100.0528, L3100.0625, L3400.7000 #### [facility] (refer to report for specific site) refer to report for address and phone number QUANTIFERON TB-GOLD Collected: 09/09/2018 Status: F Source: [place] 2:17 PM [facility] REPOSITORY TYPE CODE TESTS RESULT OUT OF RANGE REFERENCE UNITS LAB L3400.7025 Normal QFT TB GOLD Result Comment: TEST RESULT LIMITS QFT-TB Plus (Client Incubated) QuantiFERON Criteria The QuantiFERON-TB Gold Plus result is determined by subtracting the Nil value from either TB antigen (Ag) tube. The mitogen tube serves as a control for the test. QuantiFERON TB1 Ag Value 0.04 IU/mL QuantiFERON TB2 Ag Value 0.04 IU/mL QuantiFERON Nil Value 0.04 IU/mL QuantiFERON Mitogen Value >10.00 IU/mL QuantiFERON-TB Gold Plus Negative Negative The specimen received for QuantiFERON testing was incubated by the ordering institution. Specific procedures outlined in our Directory of Services and in the package insert for the QuantiFERON Gold (In Tube) test must be followed to enable for proper stimulation of cells for the production of interferon gamma. TESTING PERFORMED AT [facility]. ORIGINAL REPORT ON FILE IN LAB CONTAINS ADDITIONAL TEST SITE INFORMATION. Performed By: #### L3100.0390, L3100.0460, L3100.0528, L3100.0625, L3400.7000 #### [facility] (refer to report for specific site) refer to report for address and phone number [facility] Observed: 04/22/2018 Status: COMPLETED Source: [place] 3:37 PM [facility] [place] REPOSITORY HNO ID: [id number] Author: Mammography Coordinator Service: (none) Author Type: Physician Type: Letter Filed: 04/23/2018 11:32 PM Note Text: April 22, 2018 PID: [id number] Niki Wright [address] [place] [address] Dear Ms. Wright, We are pleased to inform you that the results of your recent breast imaging exam on 04/22/2018 are normal. Early detection of cancer is very important. We also understand recommendations regarding breast cancer screening are controversial. Please discuss with your primary care provider which strategy is best for you and whether a mammogram is right for you. Your imaging studies and report will be kept on file at [facility] as part of your permanent medical record and are available for your continuing care. Thank you for allowing us to help in meeting your health care needs. Sincerely, Dr. Browning Interpreting Radiologist [facility] (Normal over 40) [facility] SCREENING Observed: 04/22/2018 Status: F Source: [place] 10:00 AM [facility] REPOSITORY * * *Final Report* * * DATE OF EXAM: Apr 22 2018 10:00AM MARA [id number] - [facility] SCREENING / PROCEDURE REASON: Encounter for screening mammogram for malignant neoplasm of breast * * * * Physician Interpretation * * * * RESULT: #[id number] - [facility] SCREENING BILATERAL DIGITAL SCREENING MAMMOGRAM WITH CAD: 04/22/2018 HISTORY: Screening Mammogram - patient reports NO breast symptoms /priors available for comparison. RESULT: TECHNIQUE: The study was acquired using full field digital technology and interpreted from soft copy. Current study was also evaluated with a Computer Aided Detection (CAD). Comparison is made to exams dated: 10/31/2016 mammogram, 03/17/2015 mammogram, 07/15/2013 mammogram, and 02/29/2012 mammogram - [facility]. The tissue of both breasts is predominantly fatty. No significant masses, calcifications, or other findings are seen in either breast. There has been no significant interval change. IMPRESSION: NEGATIVE There is no mammographic evidence of malignancy.A 1 year screening mammogram is recommended. Jayne hawkins/giselle:04/22/2018 15:37:41 Grip Boss: Gerri STEVENS(Nicole)(Scarlet), [facility] letter sent: Normal over 40 Mammogram BI-RADS: 1 Negative Meal Packer: Giselle Transcribe Date/Time: Apr 22 2018 9:37A Dictated by: JAYNE BROWNING MD This examination was interpreted and the report reviewed and electronically signed by: JAYNE BROWNING MD on Apr 22 2018 3:37PM EST [id number] PROGRESS Observed: 04/22/2018 Status: COMPLETED Source: [place] 9:35 AM [facility] REPOSITORY [facility] ID: [id number] Author: Deidre Stevens Service: (none) Author Type: (none) Type: Progress Notes Filed: 04/22/2018 9:36 AM Note Text: Radiology Service Progress Note PATIENT NAME: Niki Wright DATE OF SERVICE: April 22, 2018 TIME: 9:36 AM PATIENT IDENTITY VERIFICATION COMPLETED USING TWO (2) METHODS: Patient confirmed name verbally and Date of . PATIENT GENDER DATA: Female. status: : No status: NO. PATIENT RELEVANT IMPLANT DATA REVIEWED: Not Applicable RADIOLOGY DEPARTMENT: [facility] DATA: Not applicable SIGNED BY: Deidre Ellison Rt April 22, 2018 9:36 AM PROGRESS Observed: 03/18/2018 Status: COMPLETED Source: [place] 10:32 AM [facility] REPOSITORY [facility] ID: [id number] Author: Suzie Green Service: (none) Author Type: Physician Type: Progress Notes Filed: 03/18/2018 12:52 PM Note Text: Medicare Yearly Visit Medical B eligibilty date age 67 Date of last exam none in the past year. PAST MEDICAL HISTORY Diagnosis Date - Acute pyelonephritis 08/01/2016 - Cervical disc disorder with radiculopathy 08/01/2016 - Diverticulosis of colon (without mention of hemorrhage) - Edema 02/05/2007 Left Leg Edema - Internal hemorrhoids without mention of complication - ANNALISA (obstructive sleep apnea) [employer] Auto PAP machine - Osteoarthritis of spine with radiculopathy, cervical region 08/01/2016 - Other psoriasis - Psoriasis 03/07/2016 - Sciatica 08/16/2009 - Unspecified hypothyroidism Hypothyroidism PAST SURGICAL HISTORY Procedure Laterality Date - COLONOSCOP W/ OR W/O [facility] SPEC 03/31/09 - LIGATE FALLOPIAN TUBE Tubal ligation - PAST SURGICAL HISTORY OF 06/05/2006 Right shouler arrthroscopy rot cuff repair - PAST SURGICAL HISTORY OF 2008 left foot- bone spur Gabapentin; Percocet [Oxycodone-Acetaminophen] Medications reviewed: Yes FAMILY HISTORY Problem Relation Age of Onset - Breast Cancer Mother - Cancer Father esophagus - Cancer Sister ovaries SOCIAL HISTORY: Social History Marital status: Spouse name: Jadyn Years of education: Number of children: 3 Occupational History Occupation Employer Comment retired Social History Main Topics Smoking status: Passive Smoke Exposure - Never Smoker Packs/day: 0.00 Years: 0.00 Smokeless tobacco: Never 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 She watches her diet for sodium, low fat and low cholesterol most of the time. She does not add salt when she cooks her food. List of current specialists seen: Eye- Derm: had skin cancer taken out End of Live Planning discussed including patients advanced directive wishes: Yes I am willing to follow Niki's advanced directives. Depression screen She in the past two weeks denies having felt down, depressed, hopeless or with little interest or pleasure in doing things. Functional Ability/Safety Screen 1. Was the patient's timed Up and Go test unsteady or longer than 30 seconds? No 2. Does the patient need help with the phone, transportation, shopping,preparing meals, housework, laundry, medications or managing money? No 3. Does your home have rugs in the hallway, lack of grab bars in the bathroom, lack of handrails on the stairs or have poor lighting? No Hearing Evaluation: normal PHYSICAL EXAM BP 104/58 (BP Site: Left Arm, BP Position: Sitting, BP Cuff Size: Large Adult) Pulse 64 Resp 14 Ht 156.2 cm (5' 1.5) Wt 104.8 kg (231 lb) LMP 04/14/2007 SpO2 99% BMI 42.94 kg/m? Alert and oriented X 3: YES Body mass index is 42.94 kg/m?. ASSESSMENT/PLAN: 72 year old female The following prevention plan was discussed during the office visit and provided to the patient: - Glaucoma screening - Lipid panel SUZIE GREEN MD Reason for Visit Patient presents with: Established Patient: 4 month follow up-labs Niki Wright is a 72 year old female who presents here today for Above Complaints. Health Maintenance HEPATITIS C SCREENING DTAP,TDAP,TD(1 - Tdap) MAMMOGRAM HPI Niki Wright is a 71 year old female who presents for follow up of HTN, ANNALISA, Lisa D def, Thyroid, Dermatitis, and BMI elevated. Labs were done. Her glucose was elevated slightly, which is new. Has hypothyroidism on the current medication she is doing well. Currently no signs of hypothyoidism. No constipation, depression , low energy or dryness of skin. Lipids are normal, reviewed test results with patient Who takes medications regularly and has no side effects. BP is well controlled on current regimen of medicines which is tolerated well. No significant side effects. No problem-specific Assessment AND Plan notes found for this encounter. PAST MEDICAL HISTORY Diagnosis Date - Acute pyelonephritis 08/01/2016 - Cervical disc disorder with radiculopathy 08/01/2016 - Diverticulosis of colon (without mention of hemorrhage) - Edema 02/05/2007 Left Leg Edema - Internal hemorrhoids without mention of complication - ANNALISA (obstructive sleep apnea) [employer] Auto PAP machine - Osteoarthritis of spine with radiculopathy, cervical region 08/01/2016 - Other psoriasis - Psoriasis 03/07/2016 - Sciatica 08/16/2009 - Unspecified hypothyroidism Hypothyroidism PAST SURGICAL HISTORY Procedure Laterality Date - COLONOSCOP W/ OR W/O [facility] SPEC 03/31/09 - LIGATE FALLOPIAN TUBE Tubal ligation - PAST SURGICAL HISTORY OF 06/05/2006 Right shouler arrthroscopy rot cuff repair - PAST SURGICAL HISTORY OF 2008 left foot- bone spur FAMILY HISTORY Problem Relation Age of Onset - Breast Cancer Mother - Cancer Father esophagus - Cancer Sister ovaries Social History Substance Use Topics - Smoking status: Passive Smoke Exposure - Never Smoker - Smokeless tobacco: Never 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 Pertinent Lab/Diagnostic Studies are reviewed and discussed today Current Outpatient Prescriptions: - ergocalciferol, vitamin D2, (DRISDOL) 50,000 unit capsule - spironolactone-hctz 25/25 (ALDACTAZIDE) 25-25 mg per tablet - levothyroxine (SYNTHROID) 200 mcg tablet - COMPOUNDED PRESCRIPTION - CPAP - triamcinolone acetonide (KENALOG) 0.1 % ointment Review of Systems CONSTITUTIONAL: No fevers, chills night sweats, unintended weight loss CARDIOVASCULAR: No chest pain, dyspnea, palpitations, orthopnea, PND, ankle edema. PULM: No dyspnea, unexplained cough. GI: No dysphagia/odynophagia, problematic reflux, constipation, diarrhea, changes in stool habits, hematochezia, melena. : No new urinary complaints, including dysuria, gross hematuria or pyuria. NEURO: No new balance problems, peripheral weakness/paresthesias or numbness of concern. Physical Exam BP 104/58 (BP Site: Left Arm, BP Position: Sitting, BP Cuff Size: Large Adult) Pulse 64 Resp 14 Ht 156.2 cm (5' 1.5) Wt 104.8 kg (231 lb) LMP 04/14/2007 SpO2 99% BMI 42.94 kg/m? General appearance: Well appearing, alert, in no acute distress, well nourished. Skin: Skin color, texture, turgor normal, no suspicious rashes or lesions Head: Normocephalic, no masses, lesions, tenderness or abnormalities Eyes: Anicteric sclera. Pupils are equally round and reactive to light. Extraocular movements are intact. Lungs: Lungs clear to auscultation. No wheezing, rhonchi, rales Heart: RRR without murmur, gallop, or rubs. Extremities: No deformities, edema, skin discoloration, clubbing or cyanosis. Good capillary refill. ASSESSMENT/PLAN: 1. Medicare annual wellness visit, subsequent - ICD9: V70.0, ICD10: Z00.00 (primary diagnosis) - Encouraged monthly Breast Self Exam - Follow up for annual exam in one year. 2. Essential hypertension - ICD9: 401.9, ICD10: I10 - good control - Recommended regular aerobic exercise. - Recommend home blood pressure monitoring, to bring results in on next visit - Goal of BP <130/80 3. ANNALISA (obstructive sleep apnea) AHI 17, 50 in rem - ICD9: 327.23, ICD10: G47.33 Uses her sleep machine regularly 4. Acquired hypothyroidism - ICD9: 244.9, ICD10: E03.9 - Instructed patient on importance of taking on an empty stomach either first thing in the morning or at bedtime. 5. Breast cancer screening by mammogram - ICD9: V76.12, ICD10: Z12.31 - Encouraged monthly BSE - Follow up for annual exam in one year. - [facility] SCREENING SUZIE GREEN MD CNOV Observed: 03/18/2018 Status: COMPLETED Source: [place] 10:00 AM [facility] REPOSITORY Office Visit (INTMWS) NIKI WRIGHT ([id number]) 1945 F Date Time Provider Department 03/18/18 10:00 AM SUZIE GREEN IN[facility] During your visit today, we recorded the following information about you: Pulse Respiration Blood pressure Weight 64/minute 14/minute 104/58 104.8 kg Height 1.562 m SUZIE GREEN MD 03/18/2018 12:52 PM Signed Medicare Yearly Visit Medical B eligibilty date age 67 Date of last exam none in the past year. PAST MEDICAL HISTORY Diagnosis Date - Acute pyelonephritis 08/01/2016 - Cervical disc disorder with radiculopathy 08/01/2016 - Diverticulosis of colon (without mention of hemorrhage) - Edema 02/05/2007 Left Leg Edema - Internal hemorrhoids without mention of complication - ANNALISA (obstructive sleep apnea) [employer] for Auto PAP machine - Osteoarthritis of spine with radiculopathy, cervical region 08/01/2016 - Other psoriasis - Psoriasis 03/07/2016 - Sciatica 08/16/2009 - Unspecified hypothyroidism Hypothyroidism PAST SURGICAL HISTORY Procedure Laterality Date - COLONOSCOP W/ OR W/O [facility] SPEC 03/31/09 - LIGATE FALLOPIAN TUBE Tubal ligation - PAST SURGICAL HISTORY OF 06/05/2006 Right shouler arrthroscopy rot cuff repair - PAST SURGICAL HISTORY OF 2008 left foot- bone spur Gabapentin; Percocet [Oxycodone-Acetaminophen] Medications reviewed: Yes FAMILY HISTORY Problem Relation Age of Onset - Breast Cancer Mother - Cancer Father esophagus - Cancer Sister ovaries SOCIAL HISTORY: Social History Marital status: Spouse name: Jadyn Years of education: Number of children: 3 Occupational History Occupation Employer Comment retired Social History Main Topics Smoking status: Passive Smoke Exposure - Never Smoker Packs/day: 0.00 Years: 0.00 Smokeless tobacco: Never 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 She watches her diet for sodium, low fat and low cholesterol most of the time. She does not add salt when she cooks her food. List of current specialists seen: Eye- Derm: had skin cancer taken out End of Live Planning discussed including patients advanced directive wishes: Yes I am willing to follow Niki's advanced directives. Depression screen She in the past two weeks denies having felt down, depressed, hopeless or with little interest or pleasure in doing things. Functional Ability/Safety Screen 1. Was the patient's timed Up and Go test unsteady or longer than 30 seconds? No 2. Does the patient need help with the phone, transportation, shopping,preparing meals, housework, laundry, medications or managing money? No 3. Does your home have rugs in the hallway, lack of grab bars in the bathroom, lack of handrails on the stairs or have poor lighting? No Hearing Evaluation: normal PHYSICAL EXAM BP 104/58 (BP Site: Left Arm, BP Position: Sitting, BP Cuff Size: Large Adult) Pulse 64 Resp 14 Ht 156.2 cm (5' 1.5) Wt 104.8 kg (231 lb) LMP 04/14/2007 SpO2 99% BMI 42.94 kg/m? Alert and oriented X 3: YES Body mass index is 42.94 kg/m?. ASSESSMENT/PLAN: 72 year old female The following prevention plan was discussed during the office visit and provided to the patient: - Glaucoma screening - Lipid panel SUZIE GREEN MD Reason for Visit Patient presents with: Established Patient: 4 month follow up-labs Niki Wright is a 72 year old female who presents here today for Above Complaints. Health Maintenance HEPATITIS C SCREENING DTAP,TDAP,TD(1 - Tdap) MAMMOGRAM HPI Niki Wright is a 71 year old female who presents for follow up of HTN, ANNALISA, Lisa D def, Thyroid, Dermatitis, and BMI elevated. Labs were done. Her glucose was elevated slightly, which is new. Has hypothyroidism on the current medication she is doing well. Currently no signs of hypothyoidism. No constipation, depression , low energy or dryness of skin. Lipids are normal, reviewed test results with patient Who takes medications regularly and has no side effects. BP is well controlled on current regimen of medicines which is tolerated well. No significant side effects. No problem-specific Assessment AND Plan notes found for this encounter. PAST MEDICAL HISTORY Diagnosis Date - Acute pyelonephritis 08/01/2016 - Cervical disc disorder with radiculopathy 08/01/2016 - Diverticulosis of colon (without mention of hemorrhage) - Edema 02/05/2007 Left Leg Edema - Internal hemorrhoids without mention of complication - ANNALISA (obstructive sleep apnea) [employer] for Auto PAP machine - Osteoarthritis of spine with radiculopathy, cervical region 08/01/2016 - Other psoriasis - Psoriasis 03/07/2016 - Sciatica 08/16/2009 - Unspecified hypothyroidism Hypothyroidism PAST SURGICAL HISTORY Procedure Laterality Date - COLONOSCOP W/ OR W/O [facility] SPEC 03/31/09 - LIGATE FALLOPIAN TUBE Tubal ligation - PAST SURGICAL HISTORY OF 06/05/2006 Right shouler arrthroscopy rot cuff repair - PAST SURGICAL HISTORY OF 2008 left foot- bone spur FAMILY HISTORY Problem Relation Age of Onset - Breast Cancer Mother - Cancer Father esophagus - Cancer Sister ovaries Social History Substance Use Topics - Smoking status: Passive Smoke Exposure - Never Smoker - Smokeless tobacco: Never 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 Pertinent Lab/Diagnostic Studies are reviewed and discussed today Current Outpatient Prescriptions: - ergocalciferol, vitamin D2, (DRISDOL) 50,000 unit capsule - spironolactone-hctz 25/25 (ALDACTAZIDE) 25-25 mg per tablet - levothyroxine (SYNTHROID) 200 mcg tablet - COMPOUNDED PRESCRIPTION - CPAP - triamcinolone acetonide (KENALOG) 0.1 % ointment Review of Systems CONSTITUTIONAL: No fevers, chills night sweats, unintended weight loss CARDIOVASCULAR: No chest pain, dyspnea, palpitations, orthopnea, PND, ankle edema. PULM: No dyspnea, unexplained cough. GI: No dysphagia/odynophagia, problematic reflux, constipation, diarrhea, changes in stool habits, hematochezia, melena. : No new urinary complaints, including dysuria, gross hematuria or pyuria. NEURO: No new balance problems, peripheral weakness/paresthesias or numbness of concern. Physical Exam BP 104/58 (BP Site: Left Arm, BP Position: Sitting, BP Cuff Size: Large Adult) Pulse 64 Resp 14 Ht 156.2 cm (5' 1.5) Wt 104.8 kg (231 lb) LMP 04/14/2007 SpO2 99% BMI 42.94 kg/m? General appearance: Well appearing, alert, in no acute distress, well nourished. Skin: Skin color, texture, turgor normal, no suspicious rashes or lesions Head: Normocephalic, no masses, lesions, tenderness or abnormalities Eyes: Anicteric sclera. Pupils are equally round and reactive to light. Extraocular movements are intact. Lungs: Lungs clear to auscultation. No wheezing, rhonchi, rales Heart: RRR without murmur, gallop, or rubs. Extremities: No deformities, edema, skin discoloration, clubbing or cyanosis. Good capillary refill. ASSESSMENT/PLAN: 1. Medicare annual wellness visit, subsequent - ICD9: V70.0, ICD10: Z00.00 (primary diagnosis) - Encouraged monthly Breast Self Exam - Follow up for annual exam in one year. 2. Essential hypertension - ICD9: 401.9, ICD10: I10 - good control - Recommended regular aerobic exercise. - Recommend home blood pressure monitoring, to bring results in on next visit - Goal of BP <130/80 3. ANNALISA (obstructive sleep apnea) AHI 17, 50 in rem - ICD9: 327.23, ICD10: G47.33 Uses her sleep machine regularly 4. Acquired hypothyroidism - ICD9: 244.9, ICD10: E03.9 - Instructed patient on importance of taking on an empty stomach either first thing in the morning or at bedtime. 5. Breast cancer screening by mammogram - ICD9: V76.12, ICD10: Z12.31 - Encouraged monthly BSE - Follow up for annual exam in one year. - [facility] SCREENING SUZIE GREEN MD Referring Provider: SUZIE GREEN [[id number]] Allergies As of Date: 03/18/2018 Noted Allergy Reaction GABAPENTIN 09/02/2015 1 - Mental Status Change Comments: dizzy PERCOCET (OXYCODONE-ACETAMINOPHEN)06/28/2006 8 - GI Upset 11 - Vomiting Date Reviewed: 03/18/2018 Reviewed by: Ryann Burt LPN - Fully Assessed Reason for Visit: Established Patient [175] Cmt: 4 month follow up-labs Primary Visit Diagnosis:Medicare annual wellness visit, subsequent [Z00.00] Other Visit Diagnoses:Essential hypertension [I10] ANNALISA (obstructive sleep apnea) AHI 17, 50 in rem [G47.33] Acquired hypothyroidism [E03.9] Breast cancer screening by mammogram [Z12.31] Order(s):[facility] SCREENING [[id number]] Order #: [id number] FUTURE cholecalciferol (VITAMIN D3) 5,000 unit tabTake 1 tablet by mouth once daily.Disp: Rfl: LIPID PANEL BASIC [SQLIPB] Order #: [id number] FUTURE BASIC METABOLIC PNL [SQBMP] Order #: [id number] FUTURE CBC + DIFF [SQCBCDIF] Order #: [id number] FUTURE Prescriptions as of 03/18/2018 Sig: CHOLECALCIFEROL (VITAMIN D3) * Take 1 tablet by mouth once d* SPIRONOLACTONE 25 MG-HYDROCHL* take 1 tablet by mouth once d* LEVOTHYROXINE 200 MCG TABLET take 1 tablet by mouth once d* COMPOUNDED PRESCRIPTION Knee high compression stockin* CPAP Initiate Auto PAP @ 5/20 cm o* TRIAMCINOLONE ACETONIDE 0.1 %* Apply 1 application to affect* Problem List As Of Date 03/18/2018 Noted Resolved HYPOTHYROIDISM NOS [E03.9] INVALID FOR*12/11/2007 SPRAIN SHOULDER/ARM NOS [S43.409A, S46.919A] INVALID FOR*12/11/2007 SPRAIN ROTATOR CUFF [S43.429A] INVALID FOR*12/11/2007 Other psoriasis [L40.8] 03/07/2016 SURGERY FOLLOWUP NOS [Z09] INVALID FOR*12/11/2007 Edema [R60.9] INVALID FOR*03/01/2017 More... ECZEMATOUS DERMATITIS NOS [L25.9] INVALID FOR*12/10/2015 Other atopic dermatitis and related conditions *INVALID FOR* Unspecified pruritic disorder [L29.9] INVALID FOR*11/17/2013 EXCORIATION////SUPERFICIAL INJURY NEC [T07.XXXA]INVALID FOR*12/10/2015 Pyoderma, unspecified [L08.0] INVALID FOR*03/01/2017 XEROSIS///SEBACEOUS GLAND DIS NEC [L73.8] INVALID FOR*03/01/2017 HYPOTHYROIDISM NOS [E03.9] 12/10/2015 More... INTERTRIGO///ERYTHEMATOUS COND NEC [L53.8] INVALID FOR*12/10/2015 Dizziness and giddiness [R42] INVALID FOR*11/17/2013 Sciatica [M54.30] INVALID FOR*03/01/2017 More... Vitamin D deficiency [E55.9] INVALID FOR* More... Low back pain [M54.5] INVALID FOR* Acquired hypothyroidism [E03.9] INVALID FOR* Psoriasis [L40.9] INVALID FOR*03/01/2017 ANNALISA (obstructive sleep apnea) AHI 17, 50 in re*INVALID FOR* More... Acute pyelonephritis [N10] INVALID FOR*03/01/2017 Essential hypertension [I10] INVALID FOR* Osteoarthritis of spine with radiculopathy, cer*INVALID FOR*03/01/2017 Arm paresthesia, left [R20.2] INVALID FOR*03/01/2017 Cervical disc disorder with radiculopathy [M50.*INVALID FOR*03/01/2017 BMI 40.0-44.9, adult ([facility]) [Z68.41] INVALID FOR* Impaired glucose metabolism [R73.09] INVALID FOR* Prescriptions ordered this encounter Disp Refills Start End CHOLECALCIFEROL (VITAMIN D3) 5,000 U* 03/18/2018 Class: Med Update Route: ORAL Sig: Take 1 tablet by mouth once daily. Medications Discontinued During This Encounter ergocalciferol, vitamin D2, (DRISDOL* 2 ca* 5 02/18/2018 03/18/2018 Sig: take 1 capsule by mouth ON THE FIRST AND THIRD SUNDAY OF EVERY MONTH Disc: Reason for discontinue is not on file. Encounter Status:Closed by SUZIE GREEN MD on 03/18/18 CNPTOUTREACH Observed: 03/05/2018 Status: COMPLETED Source: [place] 12:00 AM [facility] REPOSITORY Patient Outreach ([facility]) NIKI WRIGHT ([id number]) 1945 F Date Time Provider Department [facility] During your visit today, we recorded the following information about you: Allergies As of Date: 03/05/2018 Noted Allergy Reaction GABAPENTIN 09/02/2015 1 - Mental Status Change Comments: dizzy PERCOCET (OXYCODONE-ACETAMINOPHEN)06/28/2006 8 - GI Upset 11 - Vomiting Date Reviewed: 11/01/2017 Reviewed by: Ryann Burt LPN - Fully Assessed Visit Diagnosis:Medication management [Z79.899] Order(s):BASIC METABOLIC PNL [SQBMP] Order #: [id number] FUTURE LIPID PANEL BASIC [SQLIPB] Order #: [id number] FUTURE Prescriptions as of 03/05/2018 Sig: X ERGOCALCIFEROL (VITAMIN D2) 5* take 1 capsule by mouth ON TH* SPIRONOLACTONE 25 MG-HYDROCHL* take 1 tablet by mouth once d* LEVOTHYROXINE 200 MCG TABLET take 1 tablet by mouth once d* COMPOUNDED PRESCRIPTION Knee high compression stockin* CPAP Initiate Auto PAP @ 5/20 cm o* TRIAMCINOLONE ACETONIDE 0.1 %* Apply 1 application to affect* Problem List As Of Date 03/05/2018 Noted Resolved HYPOTHYROIDISM NOS [E03.9] INVALID FOR*12/11/2007 SPRAIN SHOULDER/ARM NOS [S43.409A, S46.919A] INVALID FOR*12/11/2007 SPRAIN ROTATOR CUFF [S43.429A] INVALID FOR*12/11/2007 Other psoriasis [L40.8] 03/07/2016 SURGERY FOLLOWUP NOS [Z09] INVALID FOR*12/11/2007 Edema [R60.9] INVALID FOR*03/01/2017 More... ECZEMATOUS DERMATITIS NOS [L25.9] INVALID FOR*12/10/2015 Other atopic dermatitis and related conditions *INVALID FOR* Unspecified pruritic disorder [L29.9] INVALID FOR*11/17/2013 EXCORIATION////SUPERFICIAL INJURY NEC [T07.XXXA]INVALID FOR*12/10/2015 Pyoderma, unspecified [L08.0] INVALID FOR*03/01/2017 XEROSIS///SEBACEOUS GLAND DIS NEC [L73.8] INVALID FOR*03/01/2017 HYPOTHYROIDISM NOS [E03.9] 12/10/2015 More... INTERTRIGO///ERYTHEMATOUS COND NEC [L53.8] INVALID FOR*12/10/2015 Dizziness and giddiness [R42] INVALID FOR*11/17/2013 Sciatica [M54.30] INVALID FOR*03/01/2017 More... Vitamin D deficiency [E55.9] INVALID FOR* More... Low back pain [M54.5] INVALID FOR* Acquired hypothyroidism [E03.9] INVALID FOR* Psoriasis [L40.9] INVALID FOR*03/01/2017 ANNALISA (obstructive sleep apnea) AHI 17, 50 in re*INVALID FOR* More... Acute pyelonephritis [N10] INVALID FOR*03/01/2017 Essential hypertension [I10] INVALID FOR* Osteoarthritis of spine with radiculopathy, cer*INVALID FOR*03/01/2017 Arm paresthesia, left [R20.2] INVALID FOR*03/01/2017 Cervical disc disorder with radiculopathy [M50.*INVALID FOR*03/01/2017 BMI 40.0-44.9, adult (HCC) [Z68.41] INVALID FOR* Impaired glucose metabolism [R73.09] INVALID FOR* Encounter Status:Closed by EPIC, PRODUSER on 07/26/18 HEMOGLOBIN A1C Collected: 02/25/2018 Status: F Source: [place] 9:38 AM [facility] REPOSITORY TYPE CODE TESTS RESULT OUT OF REFERENCE UNITS RANGE LAB HGBA1C 4.3-5.6 % Hemoglobin A1c 5.5 LAB HBA0 mg/dL Est. Average Glucose 111 Result Comment: eAG: (Estimated average glucose) is a calculated value from HgbA1c and is business center representative of the average blood glucose level in the last 2-3 month period. Performed By: #### HBA1C, VITD, TSH #### [facility] [place] [address] VITAMIN D 25 HYDROXY Collected: 02/25/2018 Status: F Source: [place] 9:38 AM [facility] REPOSITORY TYPE CODE TESTS RESULT OUT OF REFERENCE UNITS RANGE LAB VITD 31.0-80.0 ng/mL Vitamin D 25 33.8 Hydroxy Result Comment: Classification of 25 [place] Vitamin D status: Insufficiency/Moderate Deficiency: < or = 30 ng/mL Sufficiency/Optimal Levels: 31 to 80 ng/mL Toxicity: > 100 ng/mL Test performed by chemiluminescent immunoassay. Performed By: #### HBA1C, VITD, TSH #### [facility] [address] [place], [place] [address] TSH Collected: 02/25/2018 Status: F Source: [place] 9:38 AM [facility] REPOSITORY TYPE CODE TESTS RESULT OUT OF RANGE REFERENCE UNITS LAB TSH 0.400-5.500 uU/mL TSH 1.760 Performed By: #### HBA1C, VITD, TSH #### [facility] [address] [place], [place] [address] PROGRESS Observed: 01/08/2018 Status: COMPLETED Source: [place] 3:14 PM [facility] [place] REPOSITORY HNO ID: [id number] Author: Nicho (Family Service [facility] Director) LUIS Avina.DARCY Service: (none) Author Type: Nurse Practitioner Type: Progress Notes Filed: 01/08/2018 3:55 PM Note Text: CC: Patient presents with: Recheck: ER follow up, cellulitis HPI Niki Wright is a 72 year old female who presents today with for [facility] ER follow up from 01/02/18. Patient presented with redness, swelling and discomfort to the LLE. Noted some chill without fever. No tests were completed at the time of evaluation. Discharged home with Keflex and Bactrim for diagnosis of Cellulitis. Since discharge home patient notes LLE has been increasingly painful and swelling has increased significantly. Pain is located at the ankle, posterior calf, medial and lateral aspect of calf. Patient notes recent extended car ride since discharged from ER, >2 hour duration. Patient states she tried to elevate leg as much as possible and they made a few stops during the trip. Taking Advil for pain relief. Tolerating antibiotics as prescribed, needed to start probiotic d/t GI upset initially. Patient denies any warmth, numbness or tingling to the LLE. Also denies any chest pain or SOB. No history of previous DVT/PE. REVIEW OF SYSTEMS General: no fevers, no chills, no night sweats, no recurrent infections, no change in appetite, no change in energy and no significant changes in weight Respiratory: no cough, no wheezing, no shortness of breath, no hemoptysis Cardiovascular: no chest pain, no chest pressure, no palpitations Positive: LLE edema GI: No nausea, vomiting, or diarrhea PAST MEDICAL HISTORY Diagnosis Date - Acute pyelonephritis 08/01/2016 - Cervical disc disorder with radiculopathy 08/01/2016 - Diverticulosis of colon (without mention of hemorrhage) - Edema 02/05/2007 Left Leg Edema - Internal hemorrhoids without mention of complication - ANNALISA (obstructive sleep apnea) [place] PAP machine - Osteoarthritis of spine with radiculopathy, cervical region 08/01/2016 - Other psoriasis - Psoriasis 03/07/2016 - Sciatica 08/16/2009 - Unspecified hypothyroidism Hypothyroidism PAST SURGICAL HISTORY Procedure Laterality Date - COLONOSCOP W/ OR W/O [facility] SPEC 03/31/09 - LIGATE FALLOPIAN TUBE Tubal ligation - PAST SURGICAL HISTORY OF 06/05/2006 Right shouler arrthroscopy rot cuff repair - PAST SURGICAL HISTORY OF 2008 left foot- bone spur ALLERGIES Gabapentin; Percocet [Oxycodone-Acetaminophen] MEDICATIONS cephALEXin (KEFLEX) 500 mg capsule Take 500 mg by mouth four times daily. sulfamethoxazole-trimethoprim (BACTRIM DS) 800-160 mg per tablet Take by mouth twice daily. VITAMIN D 50,000 unit capsule TAKE 1 CAPSULE BY MOUTH ON THE FIRST AND THIRD SUNDAY OF EVERY MONTH levothyroxine (SYNTHROID) 200 mcg tablet take 1 tablet by mouth once daily BEFORE BREAKFAST COMPOUNDED PRESCRIPTION Knee high compression stocking left leg 20-30 mmHg Dx: M79.662, ,79.89 CPAP Initiate Auto PAP @ 5/20 cm of water with humidification. Heated humidity. Mask (per patient preference) optional chin strap (if indicated) , filters, tubing, humidifier and lifetime supplies. spironolactone-hctz 25/25 (ALDACTAZIDE) 25-25 mg per tablet Take 1 tablet by mouth once daily. triamcinolone acetonide (KENALOG) 0.1 % ointment Apply 1 application to affected area once daily as needed. 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 No wheezing, rhonchi, rales Heart: RRR without murmur, gallop, or rubs. No ectopy Left Lower Extremity: 3+, pitting pitting edema, good distal pulses. + mid posterior calf tenderness without warmth. Homans sign inconclusive, patient reports a tightening but did not describe pain. Noted vascular discoloration of LLE with faint erythema HEPATITIS C SCREENING due on 1990 INFLUENZA(1) due on 06/15/2017 TETANUS due on 07/25/2017 MAMMOGRAM due on 10/31/2017 COLORECTAL CANCER SCREENING,SEE MODIFIER due on 03/31/2019 DIABETES SCREEN due on 03/01/2020 LIPID SCREEN due on 02/28/2021 BONE DENSITY Completed ADULT PREVNAR-13 Completed PNEUMOVAX AGE 65 AND OVER WITH 5YR LOOKBACK Completed ASSESSMENT/PLAN: 1. Edema of left lower extremity - ICD9: 782.3, ICD10: R60.0 (primary diagnosis) - Concerned for DVT of LLE upon physical exam. Significant unilateral swelling of LLE with calf pain and inconclusive Homans sign on examination and recent extended travel via car. - US LEG VEIN DVT UNL VAS LAB- STAT - Follow up to be determined by US results 2. Pain of left calf - ICD9: 729.5, ICD10: M79.662 - Plan as above, see #1 - US LEG VEIN DVT UNL VAS LAB Prescription instructions reviewed with patient as applicable. Potential red flag symptoms discussed with the patient. Reviewed appropriate action plan to take if red flag symptoms occur. Patient agreeable to treatment plan. NORMA SaundersOV Observed: 01/08/2018 Status: COMPLETED Source: [place] 3:00 PM [facility] REPOSITORY Office Visit (INTMWS) NIKI WRIGHT ([id number]) 1945 F Date Time Provider Department 01/08/18 3:00 PM NICHO AVINA (DARCY) INTMWS During your visit today, we recorded the following information about you: Temperature Pulse Respiration Blood pressure 98.5 degrees 66/minute 16/minute 112/62 Weight 103.9 kg Nicho Avina APRN.CNP, APRN.CNP 01/08/2018 3:55 PM Signed CC: Patient presents with: Recheck: ER follow up, cellulitis HPI Niki Wright is a 72 year old female who presents today with for [facility] ER follow up from 01/02/18. Patient presented with redness, swelling and discomfort to the LLE. Noted some chill without fever. No tests were completed at the time of evaluation. Discharged home with Keflex and Bactrim for diagnosis of Cellulitis. Since discharge home patient notes LLE has been increasingly painful and swelling has increased significantly. Pain is located at the ankle, posterior calf, medial and lateral aspect of calf. Patient notes recent extended car ride since discharged from ER, ANDgt;2 hour duration. Patient states she tried to elevate leg as much as possible and they made a few stops during the trip. Taking Advil for pain relief. Tolerating antibiotics as prescribed, needed to start probiotic d/t GI upset initially. Patient denies any warmth, numbness or tingling to the LLE. Also denies any chest pain or SOB. No history of previous DVT/PE. REVIEW OF SYSTEMS General: no fevers, no chills, no night sweats, no recurrent infections, no change in appetite, no change in energy and no significant changes in weight Respiratory: no cough, no wheezing, no shortness of breath, no hemoptysis Cardiovascular: no chest pain, no chest pressure, no palpitations Positive: LLE edema GI: No nausea, vomiting, or diarrhea PAST MEDICAL HISTORY Diagnosis Date - Acute pyelonephritis 08/01/2016 - Cervical disc disorder with radiculopathy 08/01/2016 - Diverticulosis of colon (without mention of hemorrhage) - Edema 02/05/2007 Left Leg Edema - Internal hemorrhoids without mention of complication - ANNALISA (obstructive sleep apnea) [place] [employer] for Auto PAP machine - Osteoarthritis of spine with radiculopathy, cervical region 08/01/2016 - Other psoriasis - Psoriasis 03/07/2016 - Sciatica 08/16/2009 - Unspecified hypothyroidism Hypothyroidism PAST SURGICAL HISTORY Procedure Laterality Date - COLONOSCOP W/ OR W/O [facility] SPEC 03/31/09 - LIGATE FALLOPIAN TUBE Tubal ligation - PAST SURGICAL HISTORY OF 06/05/2006 Right shouler arrthroscopy rot cuff repair - PAST SURGICAL HISTORY OF 2008 left foot- bone spur ALLERGIES Gabapentin; Percocet [Oxycodone-Acetaminophen] MEDICATIONS cephALEXin (KEFLEX) 500 mg capsule Take 500 mg by mouth four times daily. sulfamethoxazole-trimethoprim (BACTRIM DS) 800-160 mg per tablet Take by mouth twice daily. VITAMIN D 50,000 unit capsule TAKE 1 CAPSULE BY MOUTH ON THE FIRST AND THIRD SUNDAY OF EVERY MONTH levothyroxine (SYNTHROID) 200 mcg tablet take 1 tablet by mouth once daily BEFORE BREAKFAST COMPOUNDED PRESCRIPTION Knee high compression stocking left leg 20-30 mmHg Dx: M79.662, ,79.89 CPAP Initiate Auto PAP @ 5/20 cm of water with humidification. Heated humidity. Mask (per patient preference) optional chin strap (if indicated) , filters, tubing, humidifier and lifetime supplies. spironolactone-hctz 25/25 (ALDACTAZIDE) 25-25 mg per tablet Take 1 tablet by mouth once daily. triamcinolone acetonide (KENALOG) 0.1 % ointment Apply 1 application to affected area once daily as needed. 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 No wheezing, rhonchi, rales Heart: RRR without murmur, gallop, or rubs. No ectopy Left Lower Extremity: 3+, pitting pitting edema, good distal pulses. + mid posterior calf tenderness without warmth. Homans sign inconclusive, patient reports a tightening but did not describe pain. Noted vascular discoloration of LLE with faint erythema HEPATITIS C SCREENING due on 1990 INFLUENZA(1) due on 06/15/2017 TETANUS due on 07/25/2017 MAMMOGRAM due on 10/31/2017 COLORECTAL CANCER SCREENING,SEE MODIFIER due on 03/31/2019 DIABETES SCREEN due on 03/01/2020 LIPID SCREEN due on 02/28/2021 BONE DENSITY Completed ADULT PREVNAR-13 Completed PNEUMOVAX AGE 65 AND OVER WITH 5YR LOOKBACK Completed ASSESSMENT/PLAN: 1. Edema of left lower extremity - ICD9: 782.3, ICD10: R60.0 (primary diagnosis) - Concerned for DVT of LLE upon physical exam. Significant unilateral swelling of LLE with calf pain and inconclusive Homans sign on examination and recent extended travel via car. - US LEG VEIN DVT UNL VAS LAB- STAT - Follow up to be determined by US results 2. Pain of left calf - ICD9: 729.5, ICD10: M79.662 - Plan as above, see #1 - US LEG VEIN DVT UNL VAS LAB Prescription instructions reviewed with patient as applicable. Potential red flag symptoms discussed with the patient. Reviewed appropriate action plan to take if red flag symptoms occur. Patient agreeable to treatment plan. Nicho Avina APRN.INTERNATIONAL GUEST COORDINATOR Referring Provider: SUZIE GREEN [[id number]] Allergies As of Date: 01/08/2018 Noted Allergy Reaction GABAPENTIN 09/02/2015 1 - Mental Status Change Comments: dizzy PERCOCET (OXYCODONE-ACETAMINOPHEN)06/28/2006 8 - GI Upset 11 - Vomiting Date Reviewed: 11/01/2017 Reviewed by: Ryann Burt LPN - Fully Assessed Reason for Visit: Recheck [92] Cmt: ER follow up, cellulitis Primary Visit Diagnosis:Edema of left lower extremity [R60.0] Other Visit Diagnosis:Pain of left calf [M79.662] Order(s):US LEG VEIN DVT UNL VAS LAB [[id number]] Order #: [id number] FUTURE Prescriptions as of 01/08/2018 Sig: CEPHALEXIN 500 MG CAPSULE Take 500 mg by mouth four sandhya* SULFAMETHOXAZOLE 800 MG-TRIME* Take by mouth twice daily. VITAMIN D2 50,000 UNIT CAPSULE TAKE 1 CAPSULE BY MOUTH ON * LEVOTHYROXINE 200 MCG TABLET take 1 tablet by mouth once d* COMPOUNDED PRESCRIPTION Knee high compression stockin* CPAP Initiate Auto PAP @ 5/20 cm o* SPIRONOLACTONE 25 MG-HYDROCHL* Take 1 tablet by mouth once d* TRIAMCINOLONE ACETONIDE 0.1 %* Apply 1 application to affect* Problem List As Of Date 01/08/2018 Noted Resolved HYPOTHYROIDISM NOS [E03.9] INVALID FOR*12/11/2007 SPRAIN SHOULDER/ARM NOS [S43.409A, S46.919A] INVALID FOR*12/11/2007 SPRAIN ROTATOR CUFF [S43.429A] INVALID FOR*12/11/2007 Other psoriasis [L40.8] 03/07/2016 SURGERY FOLLOWUP NOS [Z09] INVALID FOR*12/11/2007 Edema [R60.9] INVALID FOR*03/01/2017 More... ECZEMATOUS DERMATITIS NOS [L25.9] INVALID FOR*12/10/2015 Other atopic dermatitis and related conditions *INVALID FOR* Unspecified pruritic disorder [L29.9] INVALID FOR*11/17/2013 EXCORIATION////SUPERFICIAL INJURY NEC [T07.XXXA]INVALID FOR*12/10/2015 Pyoderma, unspecified [L08.0] INVALID FOR*03/01/2017 XEROSIS///SEBACEOUS GLAND DIS NEC [L73.8] INVALID FOR*03/01/2017 HYPOTHYROIDISM NOS [E03.9] 12/10/2015 More... INTERTRIGO///ERYTHEMATOUS COND NEC [L53.8] INVALID FOR*12/10/2015 Dizziness and giddiness [R42] INVALID FOR*11/17/2013 Sciatica [M54.30] INVALID FOR*03/01/2017 More... Vitamin D deficiency [E55.9] INVALID FOR* More... Low back pain [M54.5] INVALID FOR* Acquired hypothyroidism [E03.9] INVALID FOR* Psoriasis [L40.9] INVALID FOR*03/01/2017 ANNALISA (obstructive sleep apnea) AHI 17, 50 in re*INVALID FOR* More... Acute pyelonephritis [N10] INVALID FOR*03/01/2017 Essential hypertension [I10] INVALID FOR* Osteoarthritis of spine with radiculopathy, cer*INVALID FOR*03/01/2017 Arm paresthesia, left [R20.2] INVALID FOR*03/01/2017 Cervical disc disorder with radiculopathy [M50.*INVALID FOR*03/01/2017 BMI 40.0-44.9, adult (HCC) [Z68.41] INVALID FOR* Impaired glucose metabolism [R73.09] INVALID FOR* Encounter Status:Closed by NICHO AVINA CNP on 01/08/18 EMERGENCY DEPARTMENT Observed: 01/02/2018 Status: F Source: [place] SUMMARY 4:39 PM [facility] RE[facility]IT[facility] Medical Records Department [address] [place] [address] Emergency Department Summary 01/02/18 1224 MR#: [id number] Acct: [id number] Name: NIKI WRIGHT Rep #: [id number] : 1945 72 From: Hector Bazan MD PCP: Suzie Green MD Status: DEP ER - ER Visit Summary Date of Service: 01/02/18 Chief Complaint: Lower extremity cellulitis History of Present Illness: The patient is a 72 F cellulitis in the left leg a year ago. Patient states that she developed redness, swelling and discomfort left lower leg. She has had some chills but no fever. No history of DVT or PE. No recent travel, surgery or mobilization. Physical Examination: Well appearing older female. Vital signs stable afebrile. Does not look septic or toxic. No acute distress. HEENT exam unremarkable. Neck nontender. Lungs clear to auscultation bilaterally. Heart regular rate and rhythm no murmur. Abdomen soft nontender. Normal bowel sounds no peritoneal signs. She is moving all 4 extremities. They are neurovascularly intact. Her left lower leg is red and swollen consistent with cellulitis. It is warm to the touch. There is mild tenderness. There is no crepitance. No subcu air. No sloughing of skin. The left foot is neurovascular intact with palpable DP pulse. Clinically this looks like cellulitis. She has no DVT or or PE risk factors or history. There is no cords. The calf itself is not specifically tender. Right lower extremities unremarkable. Neurologic exam is normal. Test Results: None Emergency Department Course and Treatment: Had a similar event last June. Was treated as an outpatient. Clinically she appears to be capable of being treated as an outpatient. Her vital signs are stable. She is afebrile. She clinically looks good. She was placed on Keflex and Bactrim both for 10 days and follow-up with primary care physician Dr. Ahumada Treatment Plan: Keflex 4 times daily for 10 days. Bactrim twice daily for 10 days. Return if worse. Disposition: Discharge Impression: Acute left lower extremity cellulitis This note was generated with [employer]Sync dictation software. It may contain incorrect words, spelling, and punctuation that were not noted in review of the chart prior to signing ED Disposition - Plan for ED Patient: Chief Complaint: Lower Extremity Injury Referrals: Suzie Green MD [Primary Care Provider] - What to do if you have Problems For any increased pain, shortness of breath, bleeding, nausea or vomiting, chest pain, or any unexpected problems, contact your Primary Care Provider. Call [facility] ([phone]) or report to the closest Emergency Room. Call 911 if necessary. 01/02/18 1639 <Electronically signed by Hector Bazan MD> Date Hector Bazan MD Cosigner Signature (If Indicated): Date CC: No Primary Care Physician; Suzie Green MD DISCHARGE INSTRUCTION Observed: 01/02/2018 Status: F Source: [place] 4:39 PM [facility] REPOSITORY [facility] Medical Records Department [address] [place] [address] Discharge Instruction 01/02/18 1227 MR#: [id number] Acct: [id number] Name: NIKI WRIGHT Rep #: [id number] : 1945 72 From: Hector Bazan MD PCP: Suzie Green MD Status: DEP ER ED Disposition - Plan for ED Patient: Disposition: Home or Assisted Living Chief Complaint: Lower Extremity Injury Instructions: ED Infec Skin Cellulitis Prescriptions: Cephalexin [Keflex] 500 mg PO Q6 #40 cap Smz/Tmp Ds [Bactrim Ds] 1 tab PO BID #20 tab Referrals: Suzie Green MD [Primary Care Provider] - 3-5 Days if not improving Additional Instructions: If infection is getting worse such as redness coming up her leg or you are feeling worse ER you may need to be admitted for IV antibiotics. Take both antibiotics the Keflex 1 pill 4 times a day and Bactrim 1 pill twice a day and that should take care of this infection. Follow-up with your primary care physician if not improving. What to do if you have Problems For any increased pain, shortness of breath, bleeding, nausea or vomiting, chest pain, or any unexpected problems, contact your Primary Care Provider. Call [facility] ([phone]) or report to the closest Emergency Room. Call 911 if necessary. 01/02/18 0003 <Electronically signed by Hector Bazan MD> Date Hector Bazan MD Cosigner Signature (If Indicated): Date CC: No Primary Care Physician; Suzie Green MD PROGRESS Observed: 11/01/2017 Status: COMPLETED Source: [place] 10:01 AM [facility] REPOSITORY HNO ID: [id number] Author: Suzie Green Service: (none) Author Type: Physician Type: Progress Notes Filed: 11/01/2017 10:27 AM Note Text: Reason for Visit Patient presents with: Establish Care: establish care transfer from Dr.Reynolds Niki Wright is a 72 year old female who presents here today for Above Complaints.. Health Maintenance HEPATITIS C SCREENING INFLUENZA(1) TETANUS MAMMOGRAM HPI Has hypothyroidism on the current medication she is doing well. Currently no signs of hypothyoidism. No constipation, depression , low energy or dryness of skin. BP is well controlled on current regimen of medicines which is tolerated well. No significant side effects Has annalisa and is compliant with her medication. PAST MEDICAL HISTORY Diagnosis Date - Acute pyelonephritis 08/01/2016 - Cervical disc disorder with radiculopathy 08/01/2016 - Diverticulosis of colon (without mention of hemorrhage) - Edema 02/05/2007 Left Leg Edema - Internal hemorrhoids without mention of complication - ANNALISA (obstructive sleep apnea) [employer] Auto PAP machine - Osteoarthritis of spine with radiculopathy, cervical region 08/01/2016 - Other psoriasis - Psoriasis 03/07/2016 - Sciatica 08/16/2009 - Unspecified hypothyroidism Hypothyroidism PAST SURGICAL HISTORY Procedure Laterality Date - COLONOSCOP W/ OR W/O [facility] SPEC 6/17/09 - LIGATE FALLOPIAN TUBE Tubal ligation - PAST SURGICAL HISTORY OF 06/05/2006 Right shouler arrthroscopy rot cuff repair - PAST SURGICAL HISTORY OF 2008 left foot- bone spur FAMILY HISTORY Problem Relation Age of Onset - Breast Cancer Mother - Cancer Father esophagus - Cancer Sister ovaries Social History Substance Use Topics - Smoking status: Passive Smoke Exposure - Never Smoker - Smokeless tobacco: Never 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 Pertinent Lab/Diagnostic Studies are reviewed and discussed today Current Outpatient Prescriptions: - VITAMIN D 50,000 unit capsule - levothyroxine (SYNTHROID) 200 mcg tablet - COMPOUNDED PRESCRIPTION - spironolactone-hctz 25/25 (ALDACTAZIDE) 25-25 mg per tablet - triamcinolone acetonide (KENALOG) 0.1 % ointment - cephALEXin (KEFLEX) 500 mg capsule - CPAP Review of Systems CONSTITUTIONAL: No fevers, chills night sweats, unintended weight loss CARDIOVASCULAR: No chest pain, dyspnea, palpitations, orthopnea, PND, ankle edema. PULM: No dyspnea, unexplained cough. GI: No dysphagia/odynophagia, problematic reflux, constipation, diarrhea, changes in stool habits, hematochezia, melena. : No new urinary complaints, including dysuria, gross hematuria or pyuria. NEURO: No new balance problems, peripheral weakness/paresthesias or numbness of concern. Physical Exam BP 114/60 (BP Site: Left Arm, BP Position: Sitting, BP Cuff Size: Large Adult) Pulse 68 Resp 16 Ht 156.2 cm (5' 1.5) Wt 103.4 kg (228 lb) LMP 04/14/2007 SpO2 95% BMI 42.38 kg/m2 General appearance: Well appearing, alert, in no acute distress, well nourished. Skin: Skin color, texture, turgor normal, no suspicious rashes or lesions Head: Normocephalic, no masses, lesions, tenderness or abnormalities Eyes: Anicteric sclera. Pupils are equally round and reactive to light. Extraocular movements are intact. Lungs: Lungs clear to auscultation. No wheezing, rhonchi, rales Heart: RRR without murmur, gallop, or rubs. ASSESSMENT/PLAN: 1. Acquired hypothyroidism - ICD9: 244.9, ICD10: E03.9 (primary diagnosis) - Instructed patient on importance of taking on an empty stomach either first thing in the morning or at bedtime. - TSH BLD 2. ANNALISA (obstructive sleep apnea) AHI 17, 50 in rem - ICD9: 327.23, ICD10: G47.33 To cont the sleep machine 3. Vitamin D deficiency - ICD9: 268.9, ICD10: E55.9 - VITAMIN D 25 HYDROXY 4. Essential hypertension - ICD9: 401.9, ICD10: I10 - good control - Recommended regular aerobic exercise. - Recommend home blood pressure monitoring, to bring results in on next visit - Goal of BP <130/80 5. Prediabetes - ICD9: 790.29, ICD10: R73.03 - HGB A1C 6. Morbid obesity (HCC) - ICD9: 278.01, ICD10: E66.01 Discussed diet and exercise with her she will improve her diet some but will work harder on her exercise SUZIE GREEN MD CNOV Observed: 11/01/2017 Status: COMPLETED Source: [place] 9:20 AM [facility] REPOSITORY Office Visit (INTMWS) NIKI WRIGHT ([id number]) 1945 F Date Time Provider Department 11/01/17 9:20 AM SUZIE GREEN INTMWS During your visit today, we recorded the following information about you: Pulse Respiration Blood pressure Weight 68/minute 16/minute 114/60 103.4 kg Height 1.562 m SUZIE GREEN MD 11/01/2017 10:27 AM Signed Reason for Visit Patient presents with: Establish Care: establish care transfer from Niki Wright is a 72 year old female who presents here today for Above Complaints.. Health Maintenance HEPATITIS C SCREENING INFLUENZA(1) TETANUS MAMMOGRAM HPI Has hypothyroidism on the current medication she is doing well. Currently no signs of hypothyoidism. No constipation, depression , low energy or dryness of skin. BP is well controlled on current regimen of medicines which is tolerated well. No significant side effects Has annalisa and is compliant with her medication. PAST MEDICAL HISTORY Diagnosis Date - Acute pyelonephritis 08/01/2016 - Cervical disc disorder with radiculopathy 08/01/2016 - Diverticulosis of colon (without mention of hemorrhage) - Edema 02/05/2007 Left Leg Edema - Internal hemorrhoids without mention of complication - ANNALISA (obstructive sleep apnea) [employer] Auto PAP machine - Osteoarthritis of spine with radiculopathy, cervical region 08/01/2016 - Other psoriasis - Psoriasis 03/07/2016 - Sciatica 08/16/2009 - Unspecified hypothyroidism Hypothyroidism PAST SURGICAL HISTORY Procedure Laterality Date - COLONOSCOP W/ OR W/O [facility] SPEC 03/31/09 - LIGATE FALLOPIAN TUBE Tubal ligation - PAST SURGICAL HISTORY OF 06/05/2006 Right shouler arrthroscopy rot cuff repair - PAST SURGICAL HISTORY OF 2008 left foot- bone spur FAMILY HISTORY Problem Relation Age of Onset - Breast Cancer Mother - Cancer Father esophagus - Cancer Sister ovaries Social History Substance Use Topics - Smoking status: Passive Smoke Exposure - Never Smoker - Smokeless tobacco: Never 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 Pertinent Lab/Diagnostic Studies are reviewed and discussed today Current Outpatient Prescriptions: - VITAMIN D 50,000 unit capsule - levothyroxine (SYNTHROID) 200 mcg tablet - COMPOUNDED PRESCRIPTION - spironolactone-hctz 25/25 (ALDACTAZIDE) 25-25 mg per tablet - triamcinolone acetonide (KENALOG) 0.1 % ointment - cephALEXin (KEFLEX) 500 mg capsule - CPAP Review of Systems CONSTITUTIONAL: No fevers, chills night sweats, unintended weight loss CARDIOVASCULAR: No chest pain, dyspnea, palpitations, orthopnea, PND, ankle edema. PULM: No dyspnea, unexplained cough. GI: No dysphagia/odynophagia, problematic reflux, constipation, diarrhea, changes in stool habits, hematochezia, melena. : No new urinary complaints, including dysuria, gross hematuria or pyuria. NEURO: No new balance problems, peripheral weakness/paresthesias or numbness of concern. Physical Exam BP 114/60 (BP Site: Left Arm, BP Position: Sitting, BP Cuff Size: Large Adult) Pulse 68 Resp 16 Ht 156.2 cm (5' 1.5ANDquot;) Wt 103.4 kg (228 lb) LMP 04/14/2007 SpO2 95% BMI 42.38 kg/m2 General appearance: Well appearing, alert, in no acute distress, well nourished. Skin: Skin color, texture, turgor normal, no suspicious rashes or lesions Head: Normocephalic, no masses, lesions, tenderness or abnormalities Eyes: Anicteric sclera. Pupils are equally round and reactive to light. Extraocular movements are intact. Lungs: Lungs clear to auscultation. No wheezing, rhonchi, rales Heart: RRR without murmur, gallop, or rubs. ASSESSMENT/PLAN: 1. Acquired hypothyroidism - ICD9: 244.9, ICD10: E03.9 (primary diagnosis) - Instructed patient on importance of taking on an empty stomach either first thing in the morning or at bedtime. - TSH BLD 2. ANNALISA (obstructive sleep apnea) AHI 17, 50 in rem - ICD9: 327.23, ICD10: G47.33 To cont the sleep machine 3. Vitamin D deficiency - ICD9: 268.9, ICD10: E55.9 - VITAMIN D 25 HYDROXY 4. Essential hypertension - ICD9: 401.9, ICD10: I10 - good control - Recommended regular aerobic exercise. - Recommend home blood pressure monitoring, to bring results in on next visit - Goal of BP ANDlt;130/80 5. Prediabetes - ICD9: 790.29, ICD10: R73.03 - HGB A1C 6. Morbid obesity (HCC) - ICD9: 278.01, ICD10: E66.01 Discussed diet and exercise with her she will improve her diet some but will work harder on her exercise MD SUZIE SNYDER MD 11/01/2017 10:06 AM Written Uses the machine daily. Referring Provider: LARA WONG [[id number]] Allergies As of Date: 11/01/2017 Noted Allergy Reaction GABAPENTIN 09/02/2015 1 - Mental Status Change Comments: dizzy PERCOCET (OXYCODONE-ACETAMINOPHEN)06/28/2006 8 - GI Upset 11 - Vomiting Date Reviewed: 11/01/2017 Reviewed by: Ryann Burt LPN - Fully Assessed Reason for Visit: Establish Care [42] Cmt: establish care transfer from Primary Visit Diagnosis:Acquired hypothyroidism [E03.9] Other Visit Diagnoses:ANNALISA (obstructive sleep apnea) AHI 17, 50 in rem [G47.33] Vitamin D deficiency [E55.9] Essential hypertension [I10] Prediabetes [R73.03] Morbid obesity (HCC) [E66.01] Order(s):TSH BLD [SQTSH] Order #: [id number] FUTURE HGB A1C [HATLJ8G] Order #: [id number] FUTURE VITAMIN D 25 HYDROXY [SQVITD] Order #: [id number] FUTURE Prescriptions as of 11/01/2017 Sig: VITAMIN D2 50,000 UNIT CAPSULE TAKE 1 CAPSULE BY MOUTH ON * LEVOTHYROXINE 200 MCG TABLET take 1 tablet by mouth once d* COMPOUNDED PRESCRIPTION Knee high compression stockin* SPIRONOLACTONE 25 MG-HYDROCHL* Take 1 tablet by mouth once d* TRIAMCINOLONE ACETONIDE 0.1 %* Apply 1 application to affect* CPAP Initiate Auto PAP @ 5/20 cm o* Problem List As Of Date 11/01/2017 Noted Resolved HYPOTHYROIDISM NOS [E03.9] INVALID FOR*12/11/2007 SPRAIN SHOULDER/ARM NOS [S43.409A, S46.919A] INVALID FOR*12/11/2007 SPRAIN ROTATOR CUFF [S43.429A] INVALID FOR*12/11/2007 Other psoriasis [L40.8] 03/07/2016 SURGERY FOLLOWUP NOS [Z09] INVALID FOR*12/11/2007 Edema [R60.9] INVALID FOR*03/01/2017 More... ECZEMATOUS DERMATITIS NOS [L25.9] INVALID FOR*12/10/2015 Other atopic dermatitis and related conditions *INVALID FOR* Unspecified pruritic disorder [L29.9] INVALID FOR*11/17/2013 EXCORIATION////SUPERFICIAL INJURY NEC [T07.XXXA]INVALID FOR*12/10/2015 Pyoderma, unspecified [L08.0] INVALID FOR*03/01/2017 XEROSIS///SEBACEOUS GLAND DIS NEC [L73.8] INVALID FOR*03/01/2017 HYPOTHYROIDISM NOS [E03.9] 12/10/2015 More... INTERTRIGO///ERYTHEMATOUS COND NEC [L53.8] INVALID FOR*12/10/2015 Dizziness and giddiness [R42] INVALID FOR*11/17/2013 Sciatica [M54.30] INVALID FOR*03/01/2017 More... Vitamin D deficiency [E55.9] INVALID FOR* More... Low back pain [M54.5] INVALID FOR* Acquired hypothyroidism [E03.9] INVALID FOR* Psoriasis [L40.9] INVALID FOR*03/01/2017 ANNALISA (obstructive sleep apnea) AHI 17, 50 in re*INVALID FOR* More... Acute pyelonephritis [N10] INVALID FOR*03/01/2017 Essential hypertension [I10] INVALID FOR* Osteoarthritis of spine with radiculopathy, cer*INVALID FOR*03/01/2017 Arm paresthesia, left [R20.2] INVALID FOR*03/01/2017 Cervical disc disorder with radiculopathy [M50.*INVALID FOR*03/01/2017 BMI 40.0-44.9, adult (HCC) [Z68.41] INVALID FOR* Impaired glucose metabolism [R73.02] INVALID FOR* Medications Discontinued During This Encounter cephALEXin (KEFLEX) 500 mg capsule 06/21/2017 11/01/2017 Class: Historical Med Route: ORAL Sig: Take 1 capsule by mouth every 6 hours. Disc: Reason for discontinue is not on file. Encounter Status:Closed by SUZIE GREEN MD on 11/01/17 OBSOLETE Observed: 10/12/2017 Status: COMPLETED Source: [place] 12:00 AM [facility] REPOSITORY Refill (INTMWS) NIKI WRIGHT ([id number]) 1945 F Date Time Provider Department 10/12/17 SALLIE BALL INTMWS During your visit today, we recorded the following information about you: JOSE F Montero INTERNATIONAL GUEST COORDINATOR 10/12/2017 1:01 PM Signed The following approved medication requests have been transmitted electronically. Signed Prescriptions Disp Refills VITAMIN D 50,000 unit capsule 2 capsule 5 Sig: TAKE 1 CAPSULE BY MOUTH ON THE FIRST AND Sunday OF EVERY MONTH ADAM: No Authorizing Provider: ELAINE PERLA (SAND CONTROL WORKER) Elaine Perla, MSN INTERNATIONAL GUEST COORDINATOR Allergies As of Date: 10/12/2017 Noted Allergy Reaction GABAPENTIN 09/02/2015 1 - Mental Status Change Comments: dizzy PERCOCET (OXYCODONE-ACETAMINOPHEN)06/28/2006 8 - GI Upset 11 - Vomiting Date Reviewed: 06/25/2017 Reviewed by: Nahed López Wood Box Maker - Fully Assessed Reason for Visit: Refill Request [94] Order(s):VITAMIN D 50,000 unit capsuleTAKE 1 CAPSULE BY MOUTH ON THE FIRST AND Sunday OF EVERY MONTHDisp: 2 capsuleRfl: 5 Prescriptions as of 10/12/2017 Sig: VITAMIN D2 50,000 UNIT CAPSULE TAKE 1 CAPSULE BY MOUTH ON TH* LEVOTHYROXINE 200 MCG TABLET take 1 tablet by mouth once d* COMPOUNDED PRESCRIPTION Knee high compression stockin* CEPHALEXIN 500 MG CAPSULE Take 1 capsule by mouth every* CPAP Initiate Auto PAP @ 5/20 cm o* SPIRONOLACTONE 25 MG-HYDROCHL* Take 1 tablet by mouth once d* TRIAMCINOLONE ACETONIDE 0.1 %* Apply 1 application to affect* Problem List As Of Date 10/12/2017 Noted Resolved HYPOTHYROIDISM NOS [E03.9] INVALID FOR*12/11/2007 SPRAIN SHOULDER/ARM NOS [S43.409A, S46.919A] INVALID FOR*12/11/2007 SPRAIN ROTATOR CUFF [S43.429A] INVALID FOR*12/11/2007 Other psoriasis [L40.8] 03/07/2016 SURGERY FOLLOWUP NOS [Z09] INVALID FOR*12/11/2007 Edema [R60.9] INVALID FOR*03/01/2017 More... ECZEMATOUS DERMATITIS NOS [L25.9] INVALID FOR*12/10/2015 Other atopic dermatitis and related conditions *INVALID FOR* Unspecified pruritic disorder [L29.9] INVALID FOR*11/17/2013 EXCORIATION////SUPERFICIAL INJURY NEC [T07.XXXA]INVALID FOR*12/10/2015 Pyoderma, unspecified [L08.0] INVALID FOR*03/01/2017 XEROSIS///SEBACEOUS GLAND DIS NEC [L73.8] INVALID FOR*03/01/2017 HYPOTHYROIDISM NOS [E03.9] 12/10/2015 More... INTERTRIGO///ERYTHEMATOUS COND NEC [L53.8] INVALID FOR*12/10/2015 Dizziness and giddiness [R42] INVALID FOR*11/17/2013 Sciatica [M54.30] INVALID FOR*03/01/2017 More... Vitamin D deficiency [E55.9] INVALID FOR* More... Low back pain [M54.5] INVALID FOR* Acquired hypothyroidism [E03.9] INVALID FOR* Psoriasis [L40.9] INVALID FOR*03/01/2017 ANNALISA (obstructive sleep apnea) AHI 17, 50 in re*INVALID FOR* Acute pyelonephritis [N10] INVALID FOR*03/01/2017 Essential hypertension [I10] INVALID FOR* Osteoarthritis of spine with radiculopathy, cer*INVALID FOR*03/01/2017 Arm paresthesia, left [R20.2] INVALID FOR*03/01/2017 Cervical disc disorder with radiculopathy [M50.*INVALID FOR*03/01/2017 BMI 40.0-44.9, adult (HCC) [Z68.41] INVALID FOR* Impaired glucose metabolism [R73.02] INVALID FOR* Prescriptions ordered this encounter Disp Refills Start End VITAMIN D2 50,000 UNIT CAPSULE 2 ca* 5 10/12/2017 Sig: TAKE 1 CAPSULE BY MOUTH ON THE FIRST AND THIRD SUNDAY OF EVERY MONTH Medications Discontinued During This Encounter VITAMIN D 50,000 unit capsule 2 ca* 5 04/13/2017 10/12/2017 Sig: take 1 capsule by mouth ON AND Sunday OF MONTH Disc: Reason for discontinue is not on file. Encounter Status:Closed by ELAINE PERLA CNP on 10/12/17 ALLERGIES ALLERGIES DATE TYPE / CODE NAME / CODE REACTION SEVERITY SOURCE 01/02/2018 Drug hydrocodone Nausea Unknown Cindy Allergy/416 bitartrate/[id number] [facility] 848459([place] [address](RXNORM) [facility] ED CT) Repository 01/02/2018 Drug acetaminophen/F006 Nausea Unknown Cindy Allergy/416 683631(RXNORM) [facility] [id number](SNOM Hospital ED CT) Repository 09/02/2015 DRUG GABAPENTIN [facility] INGREDI/[address] [address](SNOM Repository ED CT) 06/28/2006 DRUG/640508 OXYCODONE-ACETAMIN GI UPSET [facility] 003(SNOMED OPHEN [address]) Repository ENCOUNTERS ENCOUNTERS ADMIT/DISCHARGE ACCOUNT ADMITTING ENCOUNTER LOCATION SOURCE NUMBER CLASS 09/27/2018/09/27/20 [id number] Ambulatory [address] Repository 09/27/2018/09/30/20 [id number] Ambulatory [address] Repository 09/18/2018/09/19/20 [id number] Ambulatory [address] Repository 09/09/2018 [id number] Ambulatory [facility] ing:LAB Repository 04/22/2018/04/22/20 [id number] Ambulatory [address] Repository 03/18/2018/03/19/20 [id number] Ambulatory [address] Repository 02/25/2018/02/26/20 [id number] Ambulatory [address] Repository 01/08/2018/01/11/20 [id number] Ambulatory [address] Repository 01/08/2018/01/09/20 [id number] Ambulatory [address] Repository 01/02/2018/01/03/20 [id number] Emergency [address] ing:ED Repository 11/01/2017/11/01/19 [id number] Ambulatory [address] Repository PAYERS PAYERS ENCOUNTER GUARANTOR PAYER SUBSCRIBER SOURCE 09/09/2018 JADYN Rivera Primary NIKI [id number] Insurance:OTTO PENNYB: Community [address] [facility] [id number] DIANA [facility] Number: Repository pr [address]Ird: [id number] Date:[id number] WILLIAM () [address] [place] [address]JO: 09/09/2018 Secondary NOT GIVENUNK [place] Insurance:SELF PAY [facility] Number: Effective Repository Date:2018-09-09 01/02/2018 JADYN Jones Primary NIKI S [address] Insurance:OTTO MCCANN: [facility] HEALTH PLAN [id number] Hospital [address]Xck: [phone] [facility] Number: Repository [phone] ) [id number] Date:[id number], [place] [address]UE: 01/02/2018 Secondary NOT GIVENUNK [place] Insurance:SELF PAY [facility] Number: Effective Repository Date:2018-01-02
== END ==
PROVIDERS: Family Provider Internal Medicine; PCP Internal Medicine; Referring Provider Dermatology; Visit Provider Dermatology
DX: Z79.899 Other long term (current) drug therapy (principal); L40.0 Psoriasis vulgaris; L30.8 Other specified dermatitis; L29.8 Other pruritus
CPT/HCPCS: 36415; 80076; 85025; 86480; 86703; 86704; 86706; 86803; 87340

== ENCOUNTER 2018-11-28 11:09 | Outpatient (CLI) | payer MEDICARE, SELFPAY ==
--- NOTE | 2018-11-28 11:18 | EKG12_ITS ---
Test Reason : PRE OP Blood Pressure : / mmHG Vent. Rate : 067 BPM Atrial Rate : 067 BPM P-R Int : 158 ms QRS Dur : 084 ms QT Int : 402 ms P-R-T Axes : 059 024 035 degrees QTc Int : 424 ms Normal sinus rhythm Normal ECG When compared with ECG of 02-DEC-2015 05:34, No significant change was found Confirmed by GEORGINA LOMELI, BRAXTON ([id number]), research editor BRENNAN WRIGHT ([id number]) on 11/29/2018 9:47:51 AM Referred By: Kacie Ta Confirmed By:BRAXTON ERICKSON MD
[2018-11-28 11:26] VITALS: BP 136/59; PULSE 65; RESP 18; TEMP 36.8; O2SAT 97; BMI 44.8
[2018-11-28 12:11] LABS: Hematocrit 40.7 % (37-47); Hemoglobin 13.4 g/dl (12.0-15.0); Mean Corp Hgb Conc 32.9 g/gl (32-36); Mean Corpuscular Hgb 31.2 pg (27.0-32.0); Mean Corpuscular Volume 94.7 fL (81-99); Mean Platelet Vol. 9.4 fl (6.2-12.0); Platelet Count 208 K/mm3 (150-450); RBC Distribution Width CV 13.1 % (11.6-14.6); RBC Distribution Width SD 44.9 fl (35.1-43.9); Scan Indicated on CBC? Y/N NO; White Blood Count 6.5 K/mm3 (4.4-11.0)
--- NOTE | 2018-11-28 12:28 | DCINST_ITS ---
Discharge Diet: No Restrictions Discharge Activity: Return to Normal Activity, May Shower May resume sexual activity in: 1-2 weeks Weight Bearing Status: Full weight bearing Lifting Restrictions: None Call your doctor if you observe: Fever of 101 or Higher, Inability to urinate, Inability to have a bowel movement, Using more than one pad per hour, Shortness of breath, Chest pain, Increased palpitations (irregular heartbeat), Calf dis comfort, Uncontrolled pain Allergies/Adverse Reactions: Allergies hydrocodone bitartrate [From Vicodin] Adverse Reaction (Verified 11/26/18 14:27) Nausea Medications to take at Discharge Levothyroxine Sodium [Levoxyl] 200 mcg PO DAILY 12/01/15 Spironolact/Hydrochlorothiazid [Aldactazide 25-25 Tablet] 1 each PO DAILY 12/01/15 Amlodipine Besylate [Norvasc] 2.5 mg PO DAILY 11/26/18 Cholecalciferol (Vitamin D3) [Vitamin D3] 1 cap PO DAILY 11/26/18 L.acidoph,Paracasei, B.lactis [Probiotic] 1 each PO DAILY 11/26/18 Primary Care Physician: Suzie Huff MD [Primary Care Provider] - Test Results: Test results from this visit will be discussed in further detail at your follow- up appointment, if applicable. Please Follow Up With: Kacie Ta DO When: 1-2 weeks
--- NOTE | 2018-11-28 12:32 | OP.PCM_ITS ---
Problem List (1) Postmenopausal bleeding Status: Acute (2) Endometrial polyp Status: Acute Report of Operation Date of Procedure: 11/28/18 Pre-Operative Diagnosis: PMB, endometrial polyp on in office hysteroscopy Post-Operative Diagnosis: As above Surgery/Procedure Performed:: Hysteroscopy, polypectomy, D&C Description of Surgical Findings:: Polyp noted in fundus of uterus. Otherwise normal uterine cavity and bilateral tubal ostia visualized. Thin endometrium Type of Anesthesia:: MAC Specimen's removed: Polyp and endometrial curettings Estimated Blood Loss (mL): < 50 cc Description of Procedure: Patient was taken to the operating room where MAC anesthesia was induced and found to be adequate. She was prepped and draped in the dorsal lithotomy position using yellowfin stirrups. A weighted speculum was placed and a single- tooth tenaculum was placed on the anterior lip of the cervix. The cervix was serially dilated to accommodate the hysteroscope. The hysteroscope was advanced into the uterus and the cavity was distended with normal saline. A fundal polyp was noted. The hysteroscopy was then removed. Polyp forceps were then used to remove the polyp, which was sent to pathology for reviewed. The hysteroscope was then advanced into the uterus, and the entire polyp was noted to be removed. The uterine cavity was normal-appearing. Bilateral tubal ostia were visualized. Thin endometrium was noted. Hysteroscope was then removed. A sharp curettage was performed of all 4 uterine ríos. Endometrial curettings were sent to pathology for review. Bleeding was noted to be hemostatic. All instruments removed from the vagina. Instrument counts were correct. The patient was taken to the recovery room in stable condition. - Complications None - Admit VTE Documentation VTE Present on Admission: No VTE Mechan Device Prophylaxis: SCD's
[2018-11-28 12:44] LABS: Anion Gap 9 (5-15); BUN 18 mg/dL (7-18); BUN/Creat Ratio 17.8 RATIO (10-20); Calcium,Total 8.8 mg/dL (8.5-10.1); Chloride 105 mmol/L (98-107); Creatinine, Serum 1.01 mg/dL (0.55-1.02); EST Glomerular Filtration Rate 57 mL/min (>60); Est Glom Filt Rate - Afr Amer 69 mL/min (>60); Estimated Creatinine Clearance 37.99 ml/min; Glucose 87 mg/dL (74-106); Potassium 3.6 mmol/L (3.5-5.1); Sodium Level 141 mmol/L (136-145)
--- NOTE | 2018-11-28 12:45 | EMB_PTH ---
PATIENT: TASIA WRIGHT [place] [facility] [id number] AGE/SX: 73/F ROOM: RE11/28/[address]: Dr. Kacie Ta DO : 1945 BED: DIS: 11/28/2018 SPEC #: [id number] RECD: 11/28/18 16:46 STATUS: SHUKRI BEATRIZ #: [id number] DOYLE: 11/28/18 12:[address]: Kacie Ta DEPT: SURGICAL PATHOLOGY RECD BY: Dionicio Reed ENTERED: 11/29/18 09:34 SP TYPE: ENDOM BX/C NEVAEH DR: Dr. Suzie Huff MD Tissues: Endometrium, NOS Procedures: Surgery Specimen Level IV HEADER OPERATION: Hysteroscopy, dilation and curettage, polypectomy PRE-OP DIAGNOSIS: Endometrial polyp TISSUE SUBMITTED: Endometrial curettings and endometrial polyp MICROSCOPIC DIAGNOSIS Endometrial curettings and endometrial polyp: Polypoid fragments of endometrial tissue may represent fragments of benign endometrial polyp with simple cystic hyperplasia without atypia and blood clots. SJ:juan luis 12/02/18 COMMENT Case has been reviewed in consultation with Dr. Sanchez who concurs with the above diagnosis. IDC:AM MICROSCOPIC DESCRIPTION Slides are reviewed. GROSS DESCRIPTION Received in fixative is one container labeled with the patient's name and designated endometrial polyp and endometrial curettings. The specimen consists of multiple fragments of zhang hemorrhagic soft tissue mixed with mucoid tissue that in aggregate measure 3 x 2.5 x 0.3 cm. The entire specimen is submitted in one cassette. / DON:juan luis 11/29/18 TC:5 CPT: 92609
[2018-11-28 13:43] VITALS: BP 130/67; BP 136/59; PULSE 65; RESP 16; TEMP 36.6; O2SAT 98
[2018-11-28 13:45] VITALS: BP 133/70; BP 136/59; PULSE 65; RESP 16; O2SAT 98
[2018-11-28 13:50] VITALS: BP 136/59; BP 144/70; PULSE 65; RESP 16; O2SAT 98
[2018-11-28 13:58] VITALS: BP 136/59; BP 144/69; PULSE 64; RESP 16; TEMP 36.5; O2SAT 98
[2018-11-28 15:17] VITALS: BP 136/59
== END 2018-11-28 15:18 | disposition home or self-care (01) ==
LOC: SDC 11:09 → AC 11:09
PROVIDERS: Family Provider Internal Medicine; PCP Internal Medicine; Referring Provider Obstetrics & Gynecology; Visit Provider Obstetrics & Gynecology
PROC: 0UDB8ZZ Extraction of Endometrium, Via Natural or Artificial Opening Endoscopic (ICD-10-PCS; CPT 58558; principal; 2018-11-28 12:35)
DX: N95.0 Postmenopausal bleeding (principal); N84.0 Polyp of corpus uteri; I10 Essential (primary) hypertension; E03.9 Hypothyroidism, unspecified; G47.33 Obstructive sleep apnea (adult) (pediatric); Z79.899 Other long term (current) drug therapy
CPT/HCPCS: 58558; 80048; 85027; 86850; 86900; 88305; 93005; J7120; J2405

== ENCOUNTER → 2019-05-15 14:46 | Outpatient (CLI) | payer MEDICARE, SELFPAY ==
[2019-05-15 15:10] LABS: Absolute Lymphocyte Count 1.75 X10^3/uL (0.83-4.51); Absolute Neutrophil Count 5.1 X10^3/uL (2.0-7.7); Basophil# 0.03 X10^3/uL; Basophil% 0.4 % (0-1); Eosinophil# 0.22 X10^3/uL; Eosinophils% 2.8 % (0-5); Hematocrit 38.8 % (37-47); Hemoglobin 12.9 g/dL (12.0-15.0); Lymphocyte # 1.75 X10^3/ul (4.0); Lymphocyte % 22.5 % (19-41); Mean Corp Hgb Conc 33.2 g/dL (32-36); Mean Corpuscular Hgb 32.1 pg (27.0-32.0); Mean Corpuscular Volume 96.5 fL (81-99); Mean Platelet Vol. 9.3 fl (6.2-12.0); Monocyte# 0.62 X10^3/uL; NRBC Flagged by Analyzer 0 % (0-5); Neutrophil # 5.14 X10^3/uL (2.7-7.7); Neutrophil % 65.9 % (47-70); Platelet Count 221 K/mm3 (150-450); RBC Distribution Width CV 12.1 % (11.6-14.6); RBC Distribution Width SD 43.1 fl (35.1-43.9); Red Blood Count 4.02 M/mm3 (4.2-5.4); White Blood Count 7.8 K/mm3 (4.4-11.0)
[2019-05-15 15:33] LABS: AST(SGOT) 16 U/L (15-37); Alanine Aminotransfer ALT/SGPT 18 U/L (13-56); Albumin, Serum 3.3 g/dL (3.2-5.0); Alkaline Phosphatase 111 U/L (45-117); Bilirubin, Direct 0.12 mg/dL (0.00-0.30); Globulin 4.1 g/dL (2.2-4.2); Protein, Total 7.4 g/dL (6.4-8.2)
[2019-05-17 14:07] LABS: QNTFERON TB Mitogen Value > 10.00 IU/mL (.); QNTFERON TB Nil Value 0.02 IU/mL (.); QNTFERON TB1+ Ag Value 0.04 IU/mL (.); QNTFERON TB2+ Ag Value 0.03 IU/mL (.)
[2019-05-19 10:25] LABS: QNTIFERON TB Positive Criteria Negative (Negative)
== END ==
PROVIDERS: Family Provider Internal Medicine; PCP Internal Medicine; Referring Provider Dermatology; Visit Provider Dermatology
DX: Z79.899 Other long term (current) drug therapy (principal); L40.0 Psoriasis vulgaris; B35.4 Tinea corporis; B35.1 Tinea unguium; L28.1 Prurigo nodularis; L53.8 Other specified erythematous conditions
CPT/HCPCS: 36415; 80076; 85025; 86480

== ENCOUNTER 2020-06-27 23:24 | Emergency (ER) | payer MEDICARE, SELFPAY ==
[2020-06-27 23:25] VITALS: BP 160/73; PULSE 82; RESP 16; TEMP 36.2; O2SAT 100; BMI 43.5
[2020-06-28 00:43] LABS: Absolute Lymphocyte Count 1.24 X10^3/uL (0.83-4.51); Absolute Neutrophil Count 8.3 X10^3/uL (2.0-7.7); Basophil# 0.01 X10^3/uL; Basophil% 0.1 % (0-1); Eosinophil# 0.05 X10^3/uL; Eosinophils% 0.5 % (0-5); Lymphocyte # 1.24 X10^3/ul (4.0); Lymphocyte % 11.8 % (19-41); Mean Corp Hgb Conc 33.3 g/dL (32-36); Mean Corpuscular Hgb 30.9 pg (27.0-32.0); Mean Corpuscular Volume 92.6 fL (81-99); Mean Platelet Vol. 9.5 fl (6.2-12.0); Monocyte# 0.81 X10^3/uL; Monocyte% 7.7 % (0-10); NRBC Flagged by Analyzer 0 % (0-5); Neutrophil # 8.33 X10^3/uL (2.7-7.7); Neutrophil % 79.1 % (47-70); Platelet Count 201 K/mm3 (150-450); RBC Distribution Width CV 12.6 % (11.6-14.6); RBC Distribution Width SD 43.1 fl (35.1-43.9); Red Blood Count 4.21 M/mm3 (4.2-5.4); White Blood Count 10.5 K/mm3 (4.4-11.0)
[2020-06-28 00:57] LABS: Partial Thromboplast Time 32.3 Seconds (24.1-36.2)
[2020-06-28 01:04] LABS: ALB/GLOB Ratio 0.6 RATIO (0.9-2.4); AST(SGOT) 22 U/L (15-37); Alanine Aminotransfer ALT/SGPT 29 U/L (13-56); Albumin, Serum 2.9 g/dL (3.2-5.0); Alkaline Phosphatase 127 U/L (45-117); Anion Gap 8 (5-15); BUN 22 mg/dL (7-18); BUN/Creat Ratio 22.7 RATIO (10-20); Calcium,Total 8.8 mg/dL (8.5-10.1); Chloride 102 mmol/L (98-107); Creatinine, Serum 0.97 mg/dL (0.55-1.02); EST Glomerular Filtration Rate 60 mL/min (>60); Est Glom Filt Rate - Afr Amer 72 mL/min (>60); Estimated Creatinine Clearance 40.24 ml/min; Globulin 4.7 g/dL (2.2-4.2); Glucose 110 mg/dL (74-106); Protein, Total 7.6 g/dL (6.4-8.2); Sodium Level 136 mmol/L (136-145)
[2020-06-28 01:09] LABS: International Normalized Ratio 1.1
[2020-06-28 01:12] LABS: D-Dimer Quantitative (DVT/PE) 1.23 FEU/ug/m (0.27-0.49)
[2020-06-28 01:14] LABS: Lactic Acid 1.1 mmol/L (0.4-1.9)
[2020-06-28] MEDS: Enoxaparin 120 MG/0.8 ML Syringe SC (01:28)
[2020-06-28 02:07] VITALS: RESP 18
--- NOTE | 2020-06-28 02:10 | ED.VISSUMM ---
- ER Visit Summary Date of Service: 06/28/20 Chief Complaint: Right leg redness History of Present Illness: The patient is a 75 F who presents with redness and swelling to her right lower leg that is been getting worse over the past 3 days. Patient describes her pain as aching. Patient states nothing makes it better or worse. Patient denies any fevers or chills. Patient denies any discharge or drainage. Patient states she does a lot of sitting and driving. Patient denies any chest pain or shortness of breath. Patient denies any prior history of DVT or PE. Physical Examination: Vital signs are stable. Patient is afebrile. Patient is in no acute distress. Oral mucosa is pink and moist. Neck is supple. Trachea is midline. There is no JVD noted. Heart was regular rate and rhythm. Lungs are clear and equal bilaterally. Abdomen is soft. Bowel sounds are normal. There is no tenderness. There is no rebound or guarding noted. Skin is warm dry. There is some erythema and warmth over the right lower leg. There is some mild calf tenderness. There is no abscess formation. There is no discharge or drainage. Cranial nerves II through XII are intact. There are no focal motor or sensory deficits noted. Test Results: CBC was within normal limits. Comprehensive metabolic profile showed a mild hypokalemia 3.0. BUN was slightly elevated at 22. D-dimer was obtained and was elevated at 1.23. Emergency Department Course and Treatment: Due to the elevated d-dimer, patient was given a dose of Lovenox here. Patient was ordered an outpatient venous duplex of her right lower extremity. Patient will be treated for cellulitis in her right leg. Patient was given her first dose of Keflex here. Patient was given a prescription for Keflex. Patient was instructed to ice and elevate her right leg. Patient was instructed to take Tylenol or ibuprofen as needed for pain. Patient was also given a prescription for a short course of Percocet for severe pain. Patient was instructed to follow-up with her primary care physician in 5 to 7 days. Patient understood and was agreeable with the plan. All questions were answered. Disposition: Discharge home Impression: 1. Cellulitis right leg 2. Elevated d-dimer This note was generated with [employer] dictation software. It may contain incorrect words, spelling, and punctuation that were not noted in review of the chart prior to signing ED Disposition - Plan for ED Patient: Disposition: Home or Assisted Living Diagnosis: Cellulitis of right leg, Elevated d-dimer Instructions: ED Cellulitis Prescriptions: Cephalexin [Keflex] 500 mg PO Q6 #40 cap Prescription Printed Oxycodone HCl/Acetaminophen [Percocet 5/325] 1 tab PO Q6H PRN PRN 3 Days #10 tab PRN Reason: Pain Prescription Printed Referrals: Suzie Huff MD [Primary Care Provider] - 3-5 Days
[2020-06-28] MEDS: Cephalexin 250 MG Capsule 500 MG PO (02:33)
[2020-06-28 02:34] VITALS: BP 139/84; PULSE 62; RESP 15; O2SAT 98
== END 2020-06-28 02:35 | disposition home or self-care (01) ==
PROVIDERS: Emergency Provider Emergency Medicine; PCP Internal Medicine
DX: L03.115 Cellulitis of right lower limb (principal); R79.1 Abnormal coagulation profile; I10 Essential (primary) hypertension; E03.9 Hypothyroidism, unspecified; Z79.899 Other long term (current) drug therapy
CPT/HCPCS: 80053; 83605; 85025; 85379; 85610; 85730; 87040; 99285

== ENCOUNTER → 2020-06-28 10:55 | Outpatient (CLI) | payer MEDICARE, SELFPAY ==
[2020-06-27 23:25] VITALS: BMI 43.5
--- NOTE | 2020-06-28 10:56 | VDLE_ITS ---
Reason For Study: Elevated D-dimer RIGHT GSV is normal. CFV is compressible, spontaneous, phasic, competent and demonstrates normal augmentation. FV is compressible, spontaneous, phasic, competent and demonstrates normal augmentation. POP V is compressible, spontaneous, phasic, competent and demonstrates normal augmentation. T/P Trunk is compressible. PTV is compressible. RT PerV is compressible. Procedure Exam performed in department. A preliminary report was called and/or faxed to [facility]. Pt seen in ED 06/27/2020, PCP [facility]. Interpretation Summary Deep veins of the right lower extremity are patent and compressible segmentally. There is no evidence of right lower extremity deep vein thrombosis. Valvular competence appears intact within the proximal deep venous system on the right . The right great saphenous vein appears patent and compressible segmentally. Ordering Physician: Félix Chacko Referring Physician: Suzie Munoz Performed By: Mirian Mcgregor RVT
== END ==
PROVIDERS: PCP Internal Medicine; Referring Provider Emergency Medicine; Visit Provider Emergency Medicine
DX: M79.89 Other specified soft tissue disorders (principal); M79.604 Pain in right leg; R79.1 Abnormal coagulation profile
CPT/HCPCS: 93971

== ENCOUNTER 2020-12-20 13:35 | Emergency (ER) | payer MEDICARE, SELFPAY ==
[2020-12-20] VITALS (7 sets, daily range): BP systolic 124–165; BP diastolic 63–78; PULSE 71–88; RESP 18–19; TEMP 36.7–37.2; O2SAT 96–98; BMI 41.6
--- NOTE | 2020-12-20 13:56 | ED.DCSUM_ITS ---
- ER Visit Summary Date of Service: 12/20/20 Chief Complaint: Right leg cellulitis History of Present Illness: The patient is a 75 F who presents with cellulitis to her right leg that has been getting worse over the past 4 days. Patient was seen at an urgent care 2 days ago and was given a dose of IV antibiotics there. Patient was given a prescription for Bactrim. Patient states that she started the Bactrim yesterday. Patient states this has caused her to have some nausea and vomiting. Patient states she has sharp pain. Patient states it is localized to the right lower extremity. Patient states her pain is worse with any ambulation or pressure. Patient states the pain is better when she rests and elevates the right leg. Physical Examination: Vital signs are stable. Patient is afebrile. Patient is in no acute distress. Oral mucosa is pink and moist. Neck is supple. Trachea is midline. There is no JVD. Heart with regular rate and rhythm. Lungs are clear and equal bilaterally. Abdomen is soft. Bowel sounds are normal. There is no tenderness. Extremities are intact. There is no calf tenderness. There is erythema and warmth over the right lower leg. There is no abscess formation. There is no discharge or drainage. Pedal pulses are equal bilaterally. Sensation was intact to light touch in all digits. Capillary refill is less than 2 seconds in all digits. Test Results: CBC and comprehensive metabolic profile were obtained and were essentially within normal limits. PT with INR and PTT were normal. Lactate was normal. Emergency Department Course and Treatment: Patient was given a dose of Unasyn here. Patient was given a prescription for Augmentin. Patient was instructed to stop taking the Bactrim due to her GI upset. Patient was instructed to follow-up with her primary care physician in 5 to 7 days. Patient understood and was agreeable with the plan. All questions were answered. Disposition: Discharge home Impression: 1. Cellulitis right leg This note was generated with [employer] dictation software. It may contain incorrect words, spelling, and punctuation that were not noted in review of the chart prior to signing ED Disposition - Plan for ED Patient: Disposition: Home or Assisted Living Diagnosis: Cellulitis of right lower leg Instructions: ED Cellulitis Prescriptions: Amox/Clavulanate Tablet [Augmentin Tablet] 875 mg PO Q12H #20 tab Transmission Status: Pending to [id number] Referrals: Suzie Huff MD [Primary Care Provider] - 5-7 Days
[2020-12-20 14:29] LABS: Absolute Lymphocyte Count 0.47 X10^3/uL (0.83-4.51); Absolute Neutrophil Count 5.9 X10^3/uL (2.0-7.7); Basophil# 0.01 X10^3/uL; Basophil% 0.1 % (0-1); Eosinophil# 0.06 X10^3/uL; Eosinophils% 0.9 % (0-5); Hematocrit 39.4 % (37-47); Hemoglobin 14.2 g/dL (12.0-15.0); Lymphocyte # 0.47 X10^3/ul (4.0); Lymphocyte % 6.9 % (19-41); Mean Corpuscular Hgb 32.8 pg (27.0-32.0); Mean Platelet Vol. 9.9 fl (6.2-12.0); Monocyte# 0.33 X10^3/uL; Monocyte% 4.8 % (0-10); NRBC Flagged by Analyzer 0 % (0-5); Neutrophil # 5.93 X10^3/uL (2.7-7.7); Neutrophil % 86.9 % (47-70); POSITIVE DIFFERENTIAL YES; Platelet Count 233 K/mm3 (150-450); RBC Distribution Width CV 12.6 % (11.6-14.6); RBC Distribution Width SD 41.4 fl (35.1-43.9); Red Blood Count 4.33 M/mm3 (4.2-5.4); White Blood Count 6.8 K/mm3 (4.4-11.0)
[2020-12-20 14:40] LABS: Prothrombin Time (Protime)PT. 12.8 SECONDS (11.7-14.9)
[2020-12-20 14:41] LABS: Partial Thromboplast Time 34.1 Seconds (24.1-36.2)
[2020-12-20 14:46] LABS: ALB/GLOB Ratio 0.6 RATIO (0.9-2.4); AST(SGOT) 23 U/L (15-37); Alanine Aminotransfer ALT/SGPT 24 U/L (13-56); Alkaline Phosphatase 138 U/L (45-117); Anion Gap 8 (5-15); BUN 19 mg/dL (7-18); BUN/Creat Ratio 19.3 RATIO (10-20); Chloride 101 mmol/L (98-107); Creatinine, Serum 0.98 mg/dL (0.55-1.02); EST Glomerular Filtration Rate 59 mL/min (>60); Est Glom Filt Rate - Afr Amer 71 mL/min (>60); Estimated Creatinine Clearance 39.83 ml/min; Globulin 4.8 g/dL (2.2-4.2); Glucose 101 mg/dL (74-106); Potassium 3.4 mmol/L (3.5-5.1); Protein, Total 7.8 g/dL (6.4-8.2); Sodium Level 136 mmol/L (136-145)
[2020-12-20 14:49] LABS: Differential Indicated SCAN CRITERIA MET
[2020-12-20 14:54] LABS: Lactic Acid 1.2 mmol/L (0.4-1.9)
[2020-12-20 15:22] LABS: Differential Comment SCANNED
== END 2020-12-20 16:29 | disposition home or self-care (01) ==
PROVIDERS: Emergency Provider Emergency Medicine; PCP Internal Medicine
DX: L03.115 Cellulitis of right lower limb (principal); M79.661 Pain in right lower leg; I10 Essential (primary) hypertension; E03.9 Hypothyroidism, unspecified; E66.9 Obesity, unspecified; Z68.41 Body mass index [BMI] 40.0-44.9, adult; Z79.899 Other long term (current) drug therapy
CPT/HCPCS: 80053; 83605; 85025; 85610; 85730; 87040; 96365; 99282; J0295

== ENCOUNTER 2021-06-10 20:53 | Inpatient (IN) | payer MEDICARE, SELFPAY ==
[2021-06-10 20:53] VITALS: BP 154/71; PULSE 95; RESP 18; TEMP 36.7; O2SAT 100; BMI 40.0
[2021-06-10 22:16] VITALS: BP 154/71; PULSE 95; RESP 18; TEMP 36.7; O2SAT 100
--- NOTE | 2021-06-10 22:42 | EKG12_ITS ---
Test Reason : SEPSIS Blood Pressure : / mmHG Vent. Rate : 080 BPM Atrial Rate : 080 BPM P-R Int : 160 ms QRS Dur : 092 ms QT Int : 374 ms P-R-T Axes : 041 037 028 degrees QTc Int : 431 ms Normal sinus rhythm Normal ECG Confirmed by GEORGINA LOMELI, BRAXTON ([id number]), online editor JESSICA VIDES ([id number]) on 06/13/2021 12:55:40 PM Referred By: DR PURVIS Confirmed By:BRAXTON ERICKSON MD
--- NOTE | 2021-06-10 22:44 | EX.ED.DYSGE1 ---
HPI History of Present Illness Chief Complaint: Cellulitis Informant: patient Narrative Narrative: Patient is a 76-year-old female with history of cellulitis of her lower extremities presenting with sudden onset redness, pain to her right lower extremity. Patient states this afternoon she developed pain and redness going up her right lower leg. She has had some associated rigors but is not aware of any fever. States her temperature was 99 at home. She did take Tylenol earlier today. She notes this feels like her prior episodes of cellulitis. Her last one was December of this year. She states she never had an episode on this past come on so suddenly. Patient does note her is at home with Covid. He is on day 10 of symptoms. She is not had any symptoms. She is not had her Covid vaccine. [facility] Medical History (Updated 06/11/21 @ 05:[address] Allie Tang DO) Cellulitis Chronic pain CPAP (continuous positive airway pressure) dependence Hypertension Hypothyroidism Morbid obesity Psoriatic arthritis Sleep apnea Home Medications levothyroxine [Levoxyl] 200 mcg PO DAILY 12/01/15 [History Last Taken 06/27/20] spironolacton-hydrochlorothiaz [Aldactazide] 1 ea PO DAILY 12/01/15 [History Last Taken 06/27/20] L.acidoph, paracasei,B. lactis 1 ea PO DAILY 11/26/18 [History Last Taken 06/27/20] amlodipine [Norvasc] 2.5 mg PO DAILY 11/26/18 [History Last Taken 06/27/20] cholecalciferol (vitamin D3) [Vitamin D3] 125 mcg PO DAILY 06/11/21 [History Last Taken Unknown] Allergy/AdvReac Type Severity Reaction Status Date / Time hydrocodone bitartrate AdvReac Nausea Verified 06/11/21 00:23 [From Vicodin] Family History (Updated 06/11/21 @ 01:[address] Rossy Ruiz MD) Mother Cancer Breast cancer. Brain aneurysm Father Cancer Lung cancer with concurrent tobacco use history. Surgical History (Updated 06/11/21 @ 01:[address] Rossy Ruiz MD) History of cholecystectomy S/P tubal ligation Social History (Updated 06/11/21 @ 01:[address] Rossy Ruiz MD) household members: spouse Smoking Status: Never smoker alcohol intake: never substance use type: does not use ROS ROS ED Constitutional Constitutional ED: Reports chills; Denies fever(s) ENT ENT ED: Denies ear pain or rhinorrhea Cardiovascular Cardiovascular: Denies chest pain or palpitations Respiratory/Chest Respiratory/Chest: Denies cough or dyspnea Gastrointestinal Gastrointestinal: Denies abdominal pain, diarrhea, nausea or vomiting Genitourinary Genitourinary ED: Denies dysuria or hematuria Musculoskeletal Musculoskeletal: Reports other Details: right lower leg pain ; Denies arthralgias or myalgias Integumentary Reports rash Neurologic Neurologic: Denies headache(s) or weakness EXAM Physical Exam Const Vital Signs: 06/10/21 20:53 06/10/21 22:16 06/10/21 22:17 Temperature 98.1 F 98.1 F Temperature Source Temporal Temporal Pulse Rate 95 95 Respiratory Rate 18 18 Respiratory Effort Normal Non-Labored Respiratory Pattern Normal Blood Pressure 154/71 H 154/71 H Blood Pressure Mean 98 98 Pulse Ox 100 100 Oxygen Delivery Method Room Air Room Air 06/10/21 23:07 06/10/21 23:09 Temperature 98.7 F 98.7 F Temperature Source Oral Oral Pulse Rate 82 82 Respiratory Rate 16 16 Respiratory Effort Respiratory Pattern Blood Pressure 142/79 H 142/79 H Blood Pressure Mean 100 100 Pulse Ox 96 96 Oxygen Delivery Method Room Air Room Air Positive well nourished and well developed General Appearance ED: well developed HEENT Reports moist mucous membranes Negative for tenderness Eyes PERRL and EOMs intact bilaterally Neck supple Chest Wall inspection of chest normal Resp normal respiratory effort and clear to auscultation bilaterally Cardio regular rate, regular rhythm and no murmurs GI normal to inspection, nondistended, normoactive bowel sounds Extremity Extremity Narrative: Right lower extremities General Extremety ED: Yes edema and tenderness General Extremity: edema Neuro oriented x3 Sensorium / Orientation: alert Motor Exam: Negative for general weakness Skin Skin Narrative: Patient has erythema and warmth of the right lower extremity circumferential of the calf with streaking into the foot. No crepitus appreciated. It is tender to palpation. No bullae appreciated. MDM MDM MDM Narrative Medical decision making narrative: Patient is evaluated for sudden onset of redness, warmth and pain of her right lower extremity. Physical exam is consistent with cellulitis. I am concerned given the rapid progression of her cellulitis and rigors. Patient started on IV Unasyn. She does have a leukocytosis of 17.7. Her lactate is normal. Patient meets criteria for sepsis but not severe sepsis or septic shock. Patient will be admitted for IV antibiotics due to the reasoning above. Patient is agreeable this plan of care. She is hemodynamically stable in the emergency room. Lab Data Attestation: I reviewed the patient's lab results. Labs: Laboratory Results - last 24 hr 06/10/21 06/10/21 06/10/21 22:29 22:29 22:29 WBC RBC Hgb Hct MCV MCH MCHC RDW Std Deviation RDW Coeff of Armando Plt Count MPV Immature Gran % (Auto) Neut % (Auto) Lymph % (Auto) Starke % (Auto) Eos % (Auto) Baso % (Auto) Absolute Neuts (auto) Absolute Lymphs (auto) Nucleated RBC % Differential Comment PT INR APTT Sodium 137 Potassium 3.4 L Chloride 101 Carbon Dioxide 28.0 Anion Gap 8 BUN 18 Creatinine 1.03 H Estim Creat Clear Calc 39.04 Est GFR (MDRD) Af Amer 67 Est GFR (MDRD) Non-Af 56 L BUN/Creatinine Ratio 17.5 Glucose 116 H Lactic Acid 1.6 Calcium 9.2 Magnesium 1.5 L Total Bilirubin 0.70 AST 24 ALT 21 Alkaline Phosphatase 141 H Total Protein 7.7 Albumin 3.4 Globulin 4.3 H Albumin/Globulin Ratio 0.8 L 06/10/21 06/10/21 22:50 22:50 WBC 17.7 H RBC 4.27 Hgb 13.5 Hct 39.9 MCV 93.4 MCH 31.6 MCHC 33.8 RDW Std Deviation 43.6 RDW Coeff of Armando 12.7 Plt Count 228 MPV 9.7 Immature Gran % (Auto) 2.000 H Neut % (Auto) 92.3 H Lymph % (Auto) 3.1 L Starke % (Auto) 2.1 Eos % (Auto) 0.3 Baso % (Auto) 0.2 Absolute Neuts (auto) 16.3 H Absolute Lymphs (auto) 0.54 L Nucleated RBC % 0 Differential Comment SCANNED PT 13.5 INR 1.1 APTT 28.8 Sodium Potassium Chloride Carbon Dioxide Anion Gap BUN Creatinine Estim Creat Clear Calc Est GFR (MDRD) Af Amer Est GFR (MDRD) Non-Af BUN/Creatinine Ratio Glucose Lactic Acid Calcium Magnesium Total Bilirubin AST ALT Alkaline Phosphatase Total Protein Albumin Globulin Albumin/Globulin Ratio Rhythm Strip Rhythm Strip: Sinus Rhythm Rate: 80 Ectopy: None EKG Initial EKG: Attestation: I personally reviewed and interpreted this EKG as follows: Interpretation: Sinus Rhythm Comments: Normal sinus rhythm rate of [address] segments Normal intervals Discharge Plan Dx/Rx/DC Orders Clinical Impression: Cellulitis of right lower extremity, Sepsis Disposition Disposition: Acute Care Hospital [facility] Discharge Date/Time: 06/11/21 00:24
[2021-06-10 23:03] LABS: ALB/GLOB Ratio 0.8 RATIO (0.9-2.4); AST(SGOT) 24 U/L (15-37); Alanine Aminotransfer ALT/SGPT 21 U/L (13-56); Albumin, Serum 3.4 g/dL (3.2-5.0); Alkaline Phosphatase 141 U/L (45-117); Anion Gap 8 (5-15); BUN 18 mg/dL (7-18); BUN/Creat Ratio 17.5 RATIO (10-20); Calcium,Total 9.2 mg/dL (8.5-10.1); Chloride 101 mmol/L (98-107); Creatinine, Serum 1.03 mg/dL (0.55-1.02); EST Glomerular Filtration Rate 56 mL/min (>60); Est Glom Filt Rate - Afr Amer 67 mL/min (>60); Estimated Creatinine Clearance 39.04 ml/min; Globulin 4.3 g/dL (2.2-4.2); Glucose 116 mg/dL (74-106); Potassium 3.4 mmol/L (3.5-5.1); Protein, Total 7.7 g/dL (6.4-8.2); Sodium Level 137 mmol/L (136-145)
[2021-06-10 23:05] LABS: Lactic Acid 1.6 mmol/L (0.4-1.9)
[2021-06-10 23:07] VITALS: BP 142/79; PULSE 82; RESP 16; TEMP 37.1; O2SAT 96
[2021-06-10] MEDS: Ketorolac 15 MG/ML Vial IV (23:08)
[2021-06-10 23:09] VITALS: BP 142/79; PULSE 82; RESP 16; TEMP 37.1; O2SAT 96
--- NOTE | 2021-06-10 23:15 | PCM.HP.STD ---
HPI - General General Date of Admission: 06/10/21 Date of Service: 06/10/21 Chief Complaint: RLE redness, warmth, swelling, chills. HPI Narrative The patient is a 76 y/o F w/ PMHx: Morbid obesity, ANNALISA w/ CPAP q HS, Psoriatic arthritis, Hx frequent LE cellulitis with at least 3 episodes to the RLE and 1 LLE, suspected Chronic BL LE mild lymphedema, HTN, Hypothyoridism who presents to the [facility] ED on 06/10/21 with history of sudden onset on day of ED presentation mid afternoon RLE redness, pain, mild swelling, increased warmth with associated chills with no specific injury or bite but given appearance prompted ED evaluation. Work-up in the ED included T 98.1, heart rate 95, BP 154/71, respiratory rate 18, on her percent on room air, CBC with WBC of 17.7, hemoglobin 13.5, platelet 228 with left shift and concurrently noted lymphopenia, unremarkable coags, CMP with potassium 3.4, BUN/creatinine 18/1.03, glucose 116, lactic acid 1.6, unremarkable hepatic profile aside alk phos 141, blood culture x2 pending per ED, negative rapid Covid testing. In the ED patient ministered Unasyn IV. [facility] Medical History (Updated 06/11/21 @ 01:[address] Rossy Ruiz MD) Cellulitis Chronic pain CPAP (continuous positive airway pressure) dependence Hypertension Hypothyroidism Morbid obesity Psoriatic arthritis Sleep apnea Home Medications levothyroxine [Levoxyl] 200 mcg PO DAILY 12/01/15 [History Last Taken 06/27/20] spironolacton-hydrochlorothiaz [Aldactazide] 1 ea PO DAILY 12/01/15 [History Last Taken 06/27/20] L.acidoph, paracasei,B. lactis 1 ea PO DAILY 11/26/18 [History Last Taken 06/27/20] amlodipine [Norvasc] 2.5 mg PO DAILY 11/26/18 [History Last Taken 06/27/20] cholecalciferol (vitamin D3) [Vitamin D3] 125 mcg PO DAILY 06/11/21 [History Last Taken Unknown] Allergy/AdvReac Type Severity Reaction Status Date / Time hydrocodone bitartrate AdvReac Nausea Verified 06/11/21 00:23 [From Vicodin] Family History (Updated 06/11/21 @ 01:[address] Rossy Ruiz MD) Mother Cancer Breast cancer. Brain aneurysm Father Cancer Lung cancer with concurrent tobacco use history. Surgical History (Updated 06/11/21 @ 01:[address] Rossy Ruiz MD) History of cholecystectomy S/P tubal ligation Social History (Updated 06/11/21 @ 01:[address] Rossy Ruiz MD) household members: spouse Smoking Status: Never smoker alcohol intake: never substance use type: does not use ROS ROS Narrative Admission Review of Systems: CONSTITUTIONAL: No weight loss, fever, + chills, weakness or fatigue. HEENT: Eyes: No visual loss, blurred vision, double vision or yellow sclerae. Ears, Nose, Throat: No hearing loss, sneezing, congestion, runny nose or sore throat. SKIN: + RLE erythema, warmth, swelling, TTP. CARDIOVASCULAR: No chest pain, chest pressure or chest discomfort, palpitations, edema, orthopnea, syncopal events. RESPIRATORY: No shortness of breath, cough or sputum, wheezing, hemoptysis. GASTROINTESTINAL: No anorexia, nausea, vomiting or diarrhea, abdominal pain, melena, BRBPR. GENITOURINARY: No dysuria, frequency, urgency or retention. NEUROLOGICAL: No headache, dizziness, syncope, paralysis, ataxia, numbness or tingling in the extremities, focal weakness, change in bowel or bladder control, seizure. MUSCULOSKELETAL: + muscle, back pain, joint pain or stiffness. HEMATOLOGIC: No anemia, bleeding or bruising. LYMPHATICS: No enlarged nodes. No history of splenectomy. PSYCHIATRIC: No history of depression or anxiety. ENDOCRINOLOGIC: No reports of sweating, cold or heat intolerance. No polyuria or polydipsia. ALLERGIES: No history of asthma, hives, eczema or rhinitis. Vital Signs Vital Signs Vital Signs: 06/10/21 20:53 06/10/21 22:16 06/10/21 22:17 Temperature 98.1 F 98.1 F Temperature Source Temporal Temporal Pulse Rate 95 95 Respiratory Rate 18 18 Respiratory Effort Normal Non-Labored Respiratory Pattern Normal Blood Pressure 154/71 H 154/71 H Blood Pressure Mean 98 98 Pulse Ox 100 100 Oxygen Delivery Method Room Air Room Air 06/10/21 23:07 06/10/21 23:09 Temperature 98.7 F 98.7 F Temperature Source Oral Oral Pulse Rate 82 82 Respiratory Rate 16 16 Respiratory Effort Respiratory Pattern Blood Pressure 142/79 H 142/79 H Blood Pressure Mean 100 100 Pulse Ox 96 96 Oxygen Delivery Method Room Air Room Air Weight Weight: 226 lb 3.108 oz Body Mass Index (BMI) 40.0 Physical Exam Narrative Physical Examination: General: Awake, alert, oriented x 3 and cooperative, seated upright in the ED bed, mildly uncomfortable, irritable. Skin: Normal color, normal turgor, no icterus, no cyanosis except significant right lower extremity approximately ankle to proximal ochoa circumferential significant erythema, warm to touch, painful to palpation, 1-2+ pitting edema. HEENT: AT/NC, EOMI, PERRLA, MMM, no carotid bruits or JVD noted. Lungs: CTA bilaterally, moderate effort, mild decrease BL bases, no rales, ronchi or wheezing. Heart: Regular rate and rhythm; no gallop, rub audible. Abdomen: Soft, morbidly obese, NTTP, ND, normal BS, no HSM. Extremities: No cyanosis, no clubbing, see skin. Neurological: Patient awake, alert, oriented as noted, cognitive function intact; pupils equally reactive to light and accommodation, cranial nerves II-XII grossly normal, moving all 4 extremities, no focal deficits, strength mildly to moderately global decrease secondary to acute presentation. Psychiatric: Affect appears uncomfortable, mildly irritable, no acute evidence of depressive or anxiety feelings. Results Lab / Micro Data Result Diagrams: 06/10/21 22:50 06/10/21 22:29 Labs: Laboratory Results - last 24 hr 06/10/21 22:29: Sodium 137, Potassium 3.4 L, Chloride 101, Carbon Dioxide 28.0, Anion Gap 8, BUN 18, Creatinine 1.03 H, Estim Creat Clear Calc 39.04, Est GFR (MDRD) Af Amer 67, Est GFR (MDRD) Non-Af 56 L, BUN/Creatinine Ratio 17.5, Glucose 116 H, Calcium 9.2, Total Bilirubin 0.70, AST 24, ALT 21, Alkaline Phosphatase 141 H, Total Protein 7.7, Albumin 3.4, Globulin 4.3 H, Albumin/Globulin Ratio 0.8 L 06/10/21 22:29: Lactic Acid 1.6 Assessment & Plan Assessment/Plan (1) Cellulitis of right lower extremity: PLAN: The patient is a 76 y/o F w/ PMHx: Morbid obesity, ANNALISA w/ CPAP q HS, Psoriatic arthritis, Hx frequent LE cellulitis with at least 3 episodes to the RLE and 1 LLE, suspected Chronic BL LE mild lymphedema, HTN, Hypothyoridism who presents to the [facility] ED on 06/10/21 with history of sudden onset on day of ED presentation mid afternoon RLE redness, pain, mild swelling, increased warmth with associated chills with no specific injury or bite but given appearance prompted ED evaluation. 1. Right Lower Extremity Cellulitis: Will admit to medical surgical floor, maintain on IV Unasyn, plan repeat CBC in AM, continue affected extremity elevation above heart when seated and in bed, monitor erythema outline with VS checks. If right lower extremity erythema and swelling does not rishabh with current interventions would also plan to obtain duplex ultrasound to be cautious. 2. Hypokalemia: Admission K+ 3.4, magnesium level will be requested, supplementation given, repeat level in AM. 3. Psoriatic arthritis: Patient is not on any regimen, possibly reason for frequent cellulitic episodes, encourage outpatient follow-up with rheumatology. 4. Hypertension: Continue home regimen including spironolactone, hydrochlorothiazide, amlodipine with hold parameters, PRN hydralazine. 5. Morbid Obesity: Weight loss and lifestyle changes encouraged. 6. Hypothyroidism: Continue home synthroid regimen. 7. ANNALISA: We will continue patient CPAP nightly. 8. DVT prophylaxis: SCD, Lovenox. 9. CODE STATUS: Full code. 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 Charges/Coding Visit Charges OBSV E&M: 32016 Initial observation care L3
[2021-06-10 23:29] LABS: International Normalized Ratio 1.1; Prothrombin Time (Protime)PT. 13.5 SECONDS (11.7-14.9)
[2021-06-10 23:30] LABS: Partial Thromboplast Time 28.8 Seconds (24.1-36.2)
[2021-06-10 23:35] LABS: Absolute Lymphocyte Count 0.54 X10^3/uL (0.83-4.51); Absolute Neutrophil Count 16.3 X10^3/uL (2.0-7.7); Basophil# 0.04 X10^3/uL; Basophil% 0.2 % (0-1); Eosinophil# 0.06 X10^3/uL; Eosinophils% 0.3 % (0-5); Hematocrit 39.9 % (37-47); Hemoglobin 13.5 g/dL (12.0-15.0); Lymphocyte # 0.54 X10^3/ul (0.83-4.51); Lymphocyte % 3.1 % (19-41); Mean Corp Hgb Conc 33.8 g/dL (32-36); Mean Corpuscular Hgb 31.6 pg (27.0-32.0); Mean Corpuscular Volume 93.4 fL (81-99); Mean Platelet Vol. 9.7 fl (6.2-12.0); Monocyte# 0.38 X10^3/uL; Monocyte% 2.1 % (0-10); NRBC Flagged by Analyzer 0 % (0-5); Neutrophil # 16.31 X10^3/uL (2.7-7.7); Neutrophil % 92.3 % (47-70); POSITIVE DIFFERENTIAL YES; Platelet Count 228 K/mm3 (150-450); RBC Distribution Width CV 12.7 % (11.6-14.6); RBC Distribution Width SD 43.6 fl (35.1-43.9); Red Blood Count 4.27 M/mm3 (4.2-5.4); White Blood Count 17.7 K/mm3 (4.4-11.0)
[2021-06-10 23:45] LABS: Magnesium 1.5 mg/dL (1.6-2.6)
[2021-06-10 23:53] LABS: Differential Indicated SCAN CRITERIA MET
[2021-06-11] VITALS (8 sets, daily range): BP systolic 111–137; BP diastolic 42–57; PULSE 70–86; RESP 16–18; TEMP 36.9–37.4; O2SAT 94–100; BMI 40.7
[2021-06-11 00:22] LABS: Differential Comment SCANNED
[2021-06-11] MEDS: Famotidine 20 MG Tablet PO ×3 (01:23→21:46)
[2021-06-11] MEDS: Potassium Chloride Oral Tablet 20 MEQ 40 MEQ PO (01:23)
[2021-06-11] MEDS: 0.9% Saline Lock 10 ML Syringe IV (01:51)
--- NOTE | 2021-06-11 02:16 | NURSING ---
pt had hospital c-pap on and then requested to have off d/t noise . staff suggested to pt to wear some O2 instead and pt declined stating that she doesn't always wear her c-pap at home. rn made aware.
[2021-06-11] MEDS: Levothyroxine 100 MCG Tablet 200 MCG PO (05:50)
[2021-06-11 07:33] LABS: Absolute Lymphocyte Count 0.59 X10^3/uL (0.83-4.51); Absolute Neutrophil Count 15.4 X10^3/uL (2.0-7.7); Basophil# 0.03 X10^3/uL; Basophil% 0.2 % (0-1); Eosinophil# 0.04 X10^3/uL; Eosinophils% 0.2 % (0-5); Hematocrit 36.8 % (37-47); Hemoglobin 12.1 g/dL (12.0-15.0); Lymphocyte # 0.59 X10^3/ul (0.83-4.51); Lymphocyte % 3.6 % (19-41); Mean Corp Hgb Conc 32.9 g/dL (32-36); Mean Corpuscular Hgb 31.4 pg (27.0-32.0); Mean Corpuscular Volume 95.6 fL (81-99); Mean Platelet Vol. 9.7 fl (6.2-12.0); Monocyte# 0.41 X10^3/uL; Monocyte% 2.5 % (0-10); NRBC Flagged by Analyzer 0 % (0-5); Neutrophil # 15.42 X10^3/uL (2.7-7.7); Neutrophil % 93.1 % (47-70); POSITIVE DIFFERENTIAL YES; Platelet Count 190 K/mm3 (150-450); RBC Distribution Width CV 12.9 % (11.6-14.6); RBC Distribution Width SD 45.7 fl (35.1-43.9); Red Blood Count 3.85 M/mm3 (4.2-5.4); White Blood Count 16.6 K/mm3 (4.4-11.0)
[2021-06-11 07:51] LABS: Differential Indicated SCAN CRITERIA MET
[2021-06-11 07:59] LABS: ALB/GLOB Ratio 0.7 RATIO (0.9-2.4); AST(SGOT) 26 U/L (15-37); Alanine Aminotransfer ALT/SGPT 21 U/L (13-56); Albumin, Serum 2.9 g/dL (3.2-5.0); Alkaline Phosphatase 123 U/L (45-117); Anion Gap 9 (5-15); BUN 17 mg/dL (7-18); BUN/Creat Ratio 19.8 RATIO (10-20); Calcium,Total 8.3 mg/dL (8.5-10.1); Chloride 103 mmol/L (98-107); Creatinine, Serum 0.86 mg/dL (0.55-1.02); EST Glomerular Filtration Rate 68 mL/min (>60); Est Glom Filt Rate - Afr Amer 83 mL/min (>60); Estimated Creatinine Clearance 46.76 ml/min; Globulin 3.9 g/dL (2.2-4.2); Glucose 107 mg/dL (74-106); Potassium 3.7 mmol/L (3.5-5.1); Protein, Total 6.8 g/dL (6.4-8.2); Sodium Level 138 mmol/L (136-145)
[2021-06-11 08:22] LABS: Differential Comment SCANNED
[2021-06-11] MEDS: hydroCHLOROthiazide 25 MG Tablet PO (10:07)
[2021-06-11] MEDS: Enoxaparin 40 MG/0.4 ML Syringe SC ×2 (10:08→21:46)
[2021-06-11] MEDS: amLODIPine 2.5 MG Tablet PO (10:08)
[2021-06-11] MEDS: Spironolactone 25 MG Tablet PO (10:08)
[2021-06-11] MEDS: Acetaminophen 325 MG Tablet 650 MG PO ×2 (10:15→17:30)
--- NOTE | 2021-06-11 10:26 | VDLE_ITS ---
Reason For Study: Pain RIGHT LEFT GSV is normal. CFV is compressible, spontaneous, phasic, CFV is compressible, spontaneous, phasic, competent, and demonstrates normal competent and demonstrates normal augmentation. augmentation. FV is compressible, spontaneous, phasic, competent and demonstrates normal augmentation. POP V is compressible, spontaneous, phasic, competent and demonstrates normal augmentation. T/P Trunk is compressible. PTV is compressible. RT PerV is compressible. Procedure This is a venous duplex using B-mode, color flow and spectral Doppler. Exam performed portable in patient room. A preliminary report was called and/or faxed to [facility]. VL/Venous Duplex US, Unilateral Interpretation Summary There is no evidence of right lower extremity deep vein thrombosis. Right great saphenous vein appears patent and compressible segmentally. Normal flow patterns left common f emoral vein Ordering Physician: Laura Bai Referring Physician: Suzie Huff Performed By: Sheryl Barajas, FRANCISCOCS, RVT
[2021-06-11 14:29] LABS: Mucous, Urine 0 SEEN /hpf (<or=2+); Red Blood Cells-Urine 0 SEEN /hpf (0-5)
[2021-06-11 14:32] LABS: Color, Urine Yellow (Yellow); Glucose, Dipstick Normal (Normal); Ketone-Dipstick Negative (Negative); Leukocyte Esterase-Dipstick 500 /ul (Negative); Nitrite-Dipstick Negative (Negative); Occult Blood-Urine Negative /ul (Negative); Protein-Dipstick 15 mg/dl (Negative); Specific Gravity, Urine 1.015 (1.002-1.030); Urine Clarity Sl. Cloudy (Clear); Urine Urobilinogen 4 mg/dl (Normal)
[2021-06-11 14:34] LABS: Urine Bilirubin Dipstick 1 mg/dL (Negative)
[2021-06-11 14:42] LABS: Bacteria 1+ /hpf (None Seen); Squamous Epithelial Cells - UA 0-5 SEEN /hpf (5-10); White Blood Cells 10-25 SEEN /hpf (0-5)
--- NOTE | 2021-06-11 16:07 | PN.HOSP_ITS ---
Subjective Subjective Patient seen and examined. She was admitted with a complaint of right lower extremity swelling and redness and has been managed for cellulitis of the right lower extremity. She still complains of pain in her leg. She denies any fever or chills, nausea vomiting or diarrhea. Review of systems otherwise negative. She has remained hemodynamically stable. Objective Data Objective Data Vital Signs: Vital Signs Temp Pulse Resp BP Pulse Ox 98.4 F 70 18 128/55 H 100 06/11/21 15:39 06/11/21 15:39 06/11/21 15:39 06/11/21 15:39 06/11/21 15:39 Oxygen Delivery Method Room Air Weight: 230 lb 2.601 oz Body Mass Index (BMI) 40.7 Intake & Output: Intake and Output for Last 24 Hours 06/09/21 06/10/21 06/11/21 23:59 23:59 23:59 Intake Total 1365 / 1365 Output Total 200 / 200 Balance 1165 / 1165 Lab / Micro Data Result Diagrams: 06/11/21 06:27 06/11/21 06:27 Labs: Laboratory Results - last 24 hr 06/10/21 22:29: Sodium 137, Potassium 3.4 L, Chloride 101, Carbon Dioxide 28.0, Anion Gap 8, BUN 18, Creatinine 1.03 H, Estim Creat Clear Calc 39.04, Est GFR (MDRD) Af Amer 67, Est GFR (MDRD) Non-Af 56 L, BUN/Creatinine Ratio 17.5, Glucose 116 H, Calcium 9.2, Total Bilirubin 0.70, AST 24, ALT 21, Alkaline Phosphatase 141 H, Total Protein 7.7, Albumin 3.4, Globulin 4.3 H, Al bumin/Globulin Ratio 0.8 L 06/10/21 22:29: Lactic Acid 1.6 06/10/21 22:29: Magnesium 1.5 L 06/10/21 22:50: WBC 17.7 H, RBC 4.27, Hgb 13.5, Hct 39.9, MCV 93.4, MCH 31.6, MCHC 33.8, RDW Std Deviation 43.6, RDW Coeff of Armando 12.7, Plt Count 228, MPV 9.7, Immature Gran % (Auto) 2.000 H, Neut % (Auto) 92.3 H, Lymph % (Auto) 3.1 L, [place] % (Auto) 2.1, Eos % (Auto) 0.3, Baso % (Auto) 0.2, Absolute Neuts (auto) 16.3 H, Absolute Lymphs (auto) 0.54 L, Nucleated RBC % 0, Differential Comment SCANNED 06/10/21 22:50: PT 13.5, INR 1.1, APTT 28.8 06/11/21 06:27: WBC 16.6 H, RBC 3.85 L, Hgb 12.1, Hct 36.8 L, MCV 95.6, MCH 31.4, MCHC 32.9, RDW Std Deviation 45.7 H, RDW Coeff of Armando 12.9, Plt Count 190, MPV 9.7, Immature Gran % (Auto) 0.400, Neut % (Auto) 93.1 H, Lymph % (Auto) 3.6 L, [place] % (Auto) 2.5, Eos % (Auto) 0.2, Baso % (Auto) 0.2, Absolute Neuts (auto) 15.4 H, Absolute Lymphs (auto) 0.59 L, Nucleated RBC % 0, Differential Comment SCANNED 06/11/21 06:27: Sodium 138, Potassium 3.7, Chloride 103, Carbon Dioxide 26.0, Anion Gap 9, BUN 17, Creatinine 0.86, Estim Creat Clear Calc 46.76, Est GFR (MDRD) Af Amer 83, Est GFR (MDRD) Non-Af 68, BUN/Creatinine Ratio 19.8, Glucose 107 H, Calcium 8.3 L, Total Bilirubin 0.70, AST 26, ALT 21, Alkaline Phosphatase 123 H, Total Protein 6.8, Albumin 2.9 L, Globulin 3.9, Albumin/Globulin Ratio 0.7 L 06/11/21 14:20: Urine Color Yellow, Urine Clarity Sl. Cloudy, Urine pH 5.0, Ur Specific [place] 1.015, Urine Protein 15 H, Urine Glucose (UA) Normal, Urine Ketones Negative, Urine Occult Blood Negative, Urine Nitrite Negative, Urine Bilirubin 1 H, Urine Urobilinogen 4 H, Ur Leukocyte Esterase 500 H, Urine RBC 0 SEEN, Urine WBC 10-25 SEEN, Ur Squamous Epith Cells 0-5 SEEN, Urine Bacteria 1+, Urine Mucus 0 SEEN Micro: Microbiology 06/10/21 22:50 Interface Orders SARS-CoV-2 Antigen (Rapid) - Final Rhythm Strip Rhythm Strip: Sinus Rhythm Rate: 80 Ectopy: None Physical Exam Const alert, oriented x3 and no apparent distress Exam Limitations: no limitations HEENT head/scalp atraumatic and moist oral mucous membranes Head and Scalp: normocephalic Mouth: oral and palatal mucosa normal Eyes PERRL, EOMs intact bilaterally and conjunctivae normal Neck no lymphadenopathy Resp normal respiratory effort, no retractions, no use of accessory muscles and clear to auscultation bilaterally Cardio regular rate, regular rhythm, S1 normal heart sound, S2 normal heart sound and no murmurs GI normal to inspection, nondistended, normoactive bowel sounds, soft to palpation, non-tender and non-distended Extremity Extremity Narrative: RLE has circumferential erythema and tenderness from ankle to mid ochoa. Very tender to touch. Peripheral Pulses: Yes pulses 2+ throughout Skin Skin Narrative: as under extremity Neuro oriented x3, CN's II-XII intact bilaterally and moves all extremities Sensorium / Orientation: awake and alert Psych affect normal Assessment & Plan Assessment/Plan (1) Sepsis: (2) Cellulitis of right lower extremity: PLAN: #Cellulitis of the RLE * patient complains of pain in RLE * on IV unasyn * Duplex ordered today was negative for DVT * blood cultures pending * #Hypertension; on spironolactone/HCTZ and amlodipine #Hypothyroidism: on synthroid. DVT prophylaxis: on lovenox 40mg bid Charges/Coding Visit Charges Inpatient E&M: 03548 [facility] L3
--- NOTE | 2021-06-12 00:59 | CPS ---
Pt just wanted 2L nasal o2. Does not like big hospital cpap. She thinks its too loud.
[2021-06-12 03:58] VITALS: BP 144/51; PULSE 81; RESP 18; TEMP 36.9; O2SAT 99
[2021-06-12] MEDS: Levothyroxine 100 MCG Tablet 200 MCG PO (06:09)
[2021-06-12 07:35] VITALS: O2SAT 94
[2021-06-12 09:38] VITALS: BP 134/56; PULSE 76; RESP 18; TEMP 37.3; O2SAT 97
[2021-06-12] MEDS: Famotidine 20 MG Tablet PO ×2 (09:42→21:31)
[2021-06-12] MEDS: amLODIPine 2.5 MG Tablet PO (09:42)
[2021-06-12] MEDS: Spironolactone 25 MG Tablet PO (09:42)
[2021-06-12] MEDS: hydroCHLOROthiazide 25 MG Tablet PO (09:42)
[2021-06-12] MEDS: Enoxaparin 40 MG/0.4 ML Syringe SC ×2 (09:42→21:31)
[2021-06-12] MEDS: Acetaminophen 325 MG Tablet 650 MG PO ×2 (09:54→14:52)
--- NOTE | 2021-06-12 11:02 | PN.HOSP_ITS ---
Subjective Subjective Patient and examined. She still complains of pain in her RLE. She has no other complaints, and review of systems was otherwise negative. Duplex of her RLE was negative for any evidence of clots. Objective Data Objective Data Vital Signs: Vital Signs Temp Pulse Resp BP Pulse Ox 99.2 F H 76 18 134/56 H 97 06/12/21 09:38 06/12/21 09:38 06/12/21 09:38 06/12/21 09:38 06/12/21 09:38 Oxygen Flow Rate (L/min) 2 Oxygen Delivery Method Room Air Weight: 231 lb 14.821 oz Body Mass Index (BMI) 40.7 Intake & Output: Intake and Output for Last 24 Hours 06/10/21 06/11/21 06/12/21 23:59 23:59 23:59 Intake Total 2051.5 / 2351.5 724 / 724 Output Total 200 / 200 Balance 1851.5 / 2151.5 724 / 724 Lab / Micro Data Result Diagrams: 06/11/21 06:27 06/11/21 06:27 Labs: Laboratory Results - last 24 hr 06/11/21 14:20: Urine Color Yellow, Urine Clarity Sl. Cloudy, Urine pH 5.0, Ur Specific [place] 1.015, Urine Protein 15 H, Urine Glucose (UA) Normal, Urine Ketones Negative, Urine Occult Blood Negative, Urine Nitrite Negative, Urine Bilirubin 1 H, Urine Urobilinogen 4 H, Ur Leukocyte Esterase 500 H, Urine RBC 0 SEEN, Urine WBC 10-25 SEEN, Ur Squamous Epith Cells 0-5 SEEN, Urine Bacteria 1+, Urine Mucus 0 SEEN Micro: Microbiology 06/11/21 14:20 Urine, Clean Catch Urine Culture - Preliminary Culture exhibits no growth. 06/10/21 22:50 Interface Orders SARS-CoV-2 Antigen (Rapid) - Final Rhythm Strip Rhythm Strip: Sinus Rhythm Rate: 80 Ectopy: None Physical Exam Const alert, oriented x3 and no apparent distress Exam Limitations: no limitations HEENT head/scalp atraumatic and moist oral mucous membranes Head and Scalp: normocephalic Eyes PERRL, EOMs intact bilaterally and conjunctivae normal Neck no lymphadenopathy Resp normal respiratory effort, no retractions, no use of accessory muscles and clear to auscultation bilaterally Cardio regular rate, regular rhythm, S1 normal heart sound, S2 normal heart sound and no murmurs GI normal to inspection, nondistended, normoactive bowel sounds, soft to palpation, non-tender and non-distended Extremity Extremity Narrative: RLE still has circumferential erythema and tenderness from ankle to mid ochoa. Modeately tender to touch. Peripheral Pulses: Yes pulses 2+ throughout Skin Skin Narrative: as under extremity Neuro oriented x3, CN's II-XII intact bilaterally and moves all extremities Sensorium / Orientation: awake and alert Psych affect normal Assessment & Plan Assessment/Plan (1) Sepsis: (2) Cellulitis of right lower extremity: PLAN: #Cellulitis of the RLE * on IV unasyn * Duplex ordered today was negative for DVT * blood cultures pending * on IV morphine, PO tylenol and PO oxycodone for pain * #Hypertension; on spironolactone/HCTZ and amlodipine #Hypothyroidism: on synthroid. DVT prophylaxis: on lovenox 40mg bid Charges/Coding Visit Charges Inpatient E&M: 96988 Subs Hosp L2
[2021-06-12 12:48] VITALS: BP 130/52; PULSE 65; RESP 18; TEMP 36.8; O2SAT 98
[2021-06-12 16:05] VITALS: BP 138/67; PULSE 78; RESP 18; TEMP 36.7; O2SAT 97
[2021-06-12 21:49] VITALS: BP 137/56; PULSE 76; RESP 18; TEMP 36.7; O2SAT 96
[2021-06-13 04:00] VITALS: BP 117/54; PULSE 72; RESP 18; TEMP 37; O2SAT 97
[2021-06-13] MEDS: Levothyroxine 100 MCG Tablet 200 MCG PO (05:15)
[2021-06-13 07:14] LABS: Absolute Lymphocyte Count 1.41 X10^3/uL (0.83-4.51); Absolute Neutrophil Count 4.2 X10^3/uL (2.0-7.7); Basophil# 0.02 X10^3/uL; Basophil% 0.3 % (0-1); Eosinophil# 0.25 X10^3/uL; Eosinophils% 3.8 % (0-5); Hematocrit 35.6 % (37-47); Hemoglobin 11.6 g/dL (12.0-15.0); Lymphocyte # 1.41 X10^3/ul (0.83-4.51); Lymphocyte % 21.3 % (19-41); Mean Corp Hgb Conc 32.6 g/dL (32-36); Mean Corpuscular Hgb 30.9 pg (27.0-32.0); Mean Corpuscular Volume 94.9 fL (81-99); Mean Platelet Vol. 9.6 fl (6.2-12.0); Monocyte# 0.68 X10^3/uL; Monocyte% 10.3 % (0-10); NRBC Flagged by Analyzer 0 % (0-5); Neutrophil # 4.24 X10^3/uL (2.7-7.7); Platelet Count 188 K/mm3 (150-450); RBC Distribution Width CV 12.7 % (11.6-14.6); RBC Distribution Width SD 44.4 fl (35.1-43.9); Red Blood Count 3.75 M/mm3 (4.2-5.4); White Blood Count 6.6 K/mm3 (4.4-11.0)
[2021-06-13] MEDS: Acetaminophen 325 MG Tablet 650 MG PO ×2 (07:27→11:58)
[2021-06-13 07:31] LABS: Anion Gap 7 (5-15); BUN 16 mg/dL (7-18); BUN/Creat Ratio 20.9 RATIO (10-20); Calcium,Total 8.3 mg/dL (8.5-10.1); Chloride 104 mmol/L (98-107); Creatinine, Serum 0.77 mg/dL (0.55-1.02); EST Glomerular Filtration Rate 78 mL/min (>60); Est Glom Filt Rate - Afr Amer 94 mL/min (>60); Estimated Creatinine Clearance 40.21 ml/min; Glucose 88 mg/dL (74-106); Potassium 3.6 mmol/L (3.5-5.1); Sodium Level 137 mmol/L (136-145)
[2021-06-13 08:42] VITALS: O2SAT 93
[2021-06-13 09:38] VITALS: BP 122/57; PULSE 66; RESP 18; TEMP 36.8; O2SAT 96
[2021-06-13] MEDS: hydroCHLOROthiazide 25 MG Tablet PO (09:41)
[2021-06-13] MEDS: Famotidine 20 MG Tablet PO ×2 (09:41→21:04)
[2021-06-13] MEDS: amLODIPine 2.5 MG Tablet PO (09:41)
[2021-06-13] MEDS: Spironolactone 25 MG Tablet PO (09:41)
[2021-06-13] MEDS: Enoxaparin 40 MG/0.4 ML Syringe SC ×2 (09:42→21:04)
--- NOTE | 2021-06-13 10:45 | PN.HOSP_ITS ---
Subjective Subjective Patient seen and examined. She feels her leg is getting better. Pain is improved as well as swelling. Redness has also improved slightly. Review of systems otherwise negative. She has remained hemodynamically stable. Objective Data Objective Data Vital Signs: Vital Signs Temp Pulse Resp BP Pulse Ox 98.2 F 66 18 122/57 H 96 06/13/21 09:38 06/13/21 09:38 06/13/21 09:38 06/13/21 09:38 06/13/21 09:38 Oxygen Flow Rate (L/min) 2 Oxygen Delivery Method Room Air Weight: 235 lb 7.259 oz Body Mass Index (BMI) 40.7 Intake & Output: Intake and Output for Last 24 Hours 06/11/21 06/12/21 06/13/21 23:59 23:59 23:59 Intake Total 2051.5 / 2351.5 2148 / 2448 724 / 724 Output Total 200 / 200 Balance 1851.5 / 2151.5 2148 / 2448 724 / 724 Lab / Micro Data Result Diagrams: 06/13/21 06:20 06/13/21 06:20 Labs: Laboratory Results - last 24 hr 06/13/21 06:20: WBC 6.6, RBC 3.75 L, Hgb 11.6 L, Hct 35.6 L, MCV 94.9, MCH 30.9, MCHC 32.6, RDW Std Deviation 44.4 H, RDW Coeff of Armando 12.7, Plt Count 188, MPV 9.6, Immature Gran % (Auto) 0.300, Neut % (Auto) 64.0, Lymph % (Auto) 21.3, [place] % (Auto) 10.3 H, Eos % (Auto) 3.8, Baso % (Auto) 0.3, Absolute Neuts (auto) 4.2, Absolute Lymphs (auto) 1.41, Nucleated RBC % 0 06/13/21 06:20: Sodium 137, Potassium 3.6, Chloride 104, Carbon Dioxide 26.0, Anion Gap 7, BUN 16, Creatinine 0.77, Estim Creat Clear Calc 40.21, Est GFR (MDRD) Af Amer 94, Est GFR (MDRD) Non-Af 78, BUN/Creatinine Ratio 20.9 H, Glucose 88, Calcium 8.3 L Micro: Microbiology 06/11/21 14:20 Urine, Clean Catch Urine Culture - Final Culture exhibits no growth. 06/10/21 22:29 Blood Culture (Wb) - Anticubital Right Blood Culture - Preliminary No growth in 48 hours. 06/10/21 22:50 Blood Culture (Wb) - Anticubital Right Blood Culture - Preliminary No growth in 48 hours. 06/10/21 22:50 Interface Orders SARS-CoV-2 Antigen (Rapid) - Final Radiography Diagnostic Testing: Radiology Impression Venous Doppler Study 06/11/21 10:26 Interpretation Summary There is no evidence of right lower extremity deep vein thrombosis. Right great saphenous vein appears patent and compressible segmentally. Normal flow patterns left common femoral vein Ordering Physician: Laura Bai Referring Physician: Suzie Huff Performed By: Sheryl Barajas, DEE, RVT Rhythm Strip Rhythm Strip: Sinus Rhythm Rate: 80 Ectopy: None Physical Exam Const alert, oriented x3 and no apparent distress Exam Limitations: no limitations HEENT head/scalp atraumatic and moist oral mucous membranes Head and Scalp: normocephalic Eyes PERRL, EOMs intact bilaterally and conjunctivae normal Neck no lymphadenopathy Resp normal respiratory effort, no retractions, no use of accessory muscles and clear to auscultation bilaterally Cardio regular rate, regular rhythm, S1 normal heart sound, S2 normal heart sound and no murmurs GI normal to inspection, nondistended, normoactive bowel sounds, soft to palpation, non-tender and non-distended Extremity Extremity Narrative: RLE redness and swelling is improving, and tenderness has also improved. Peripheral Pulses: Yes pulses 2+ throughout Skin Skin Narrative: as under extremity Neuro oriented x3, CN's II-XII intact bilaterally and moves all extremities Sensorium / Orientation: awake and alert Psych affect normal Assessment & Plan Assessment/Plan (1) Sepsis: (2) Cellulitis of right lower extremity: PLAN: #Cellulitis of the RLE * on IV unasyn; redness, pain and swelling is improving. * Duplex ordered today was negative for DVT * blood cultures pending * on IV morphine, PO tylenol and PO oxycodone for pain * #Hypertension; on spironolactone/HCTZ and amlodipine #Hypothyroidism: on synthroid. DVT prophylaxis: on lovenox 40mg bid Disposition: for likely DC tomorrow. Charges/Coding Visit Charges Inpatient E&M: 63562 Subs Hosp L2
--- NOTE | 2021-06-13 12:25 | CASEMGMT ---
AKOSUA LANDA Assessment: Face to Face with pt for initial transition planning/care coordination assessment. AKOSUA LANDA introduced self and role at [facility], pt voices understanding and consents to assessment. Pt is A/O x4 and answers all questions appropriately at this time. Pt sitting up in bed with lunch tray in no distress. Care providers, pharmacy, and demographics verified/updated. Admitting Dx: RLE Cellulitis PCP: [facility] Specialists:Pt denies having any specialists. [facility] Insurance: [employer] Prescription Benefit: yes LW/HPOA: Pt denies having a LW/DPOA or need of info regarding. Pt states she knows that she needs to get this done. LNOK: Dru Parkinson, ; Alejandro Parkinson, son Living Arrangements: Pt lives with in a basement apartment with no steps to enter. Her son and his family live in the upper portion of the home. Pt states she is I in ADL's and denies concerns at home. Transportation: Pt drives self and denies concerns regarding transportation. DME/HHC/SNF: Pt has a straight cane but she does not normally use. She has a walker available to her if she should need it. Pt denies previous HHC or SNF stays. Pt states no concerns with going home at time of dc. She states her has COVID but is getting better. She states she was not quarantining from him prior and she has no symptoms and tested negative. Pt states no further concerns/needs. CM to follow. Advised pt to ask CM if any further question/concerns/needs arise, voices understanding. Pt Goal: Home Plan: Home
--- NOTE | 2021-06-13 14:03 | CHAPLAIN ---
Type of Pastoral Visit _x__ Initial Visit ___ Follow-up Visit ___ On-call Visit ___ General Patient Visit ___ Spiritual Assessment ___ Family Conference ___ Bereavement ___ Rapid Response ___ Code Blue ___ Other (describe below) Pastoral Care Referral From _x__ Patient ___ Family ___ Nurse ___ Physician ___ Dental Cream Maker ___ Disposition Clerk ___ Other (describe below) Sacrament/Intervention _x__ Active listening ___ Anointing ___ Christian ___ Bereavement ___ Communion ___ Davina exploration ___ ___ Life review _x__ Prayer ___ Reconciliation ___ Sacrament of Sick ___ Supportive presence ___ Wedding ___ Other (describe below) Pastoral Comments patient desiring prayer support for herself and for friends who are ill;
[2021-06-13 14:04] VITALS: BP 115/62; PULSE 84; RESP 18; TEMP 36.7; O2SAT 98
[2021-06-13 19:54] VITALS: BP 130/58; PULSE 64; RESP 16; TEMP 36.7; O2SAT 98
[2021-06-14 02:22] VITALS: BP 124/67; PULSE 68; RESP 18; TEMP 36.9; O2SAT 100
[2021-06-14] MEDS: Levothyroxine 100 MCG Tablet 200 MCG PO (05:32)
[2021-06-14 05:52] LABS: Absolute Lymphocyte Count 1.26 X10^3/uL (0.83-4.51); Absolute Neutrophil Count 4.2 X10^3/uL (2.0-7.7); Basophil# 0.02 X10^3/uL; Basophil% 0.3 % (0-1); Eosinophil# 0.28 X10^3/uL; Eosinophils% 4.3 % (0-5); Hematocrit 35.5 % (37-47); Hemoglobin 11.6 g/dL (12.0-15.0); Lymphocyte # 1.26 X10^3/ul (0.83-4.51); Lymphocyte % 19.5 % (19-41); Mean Corp Hgb Conc 32.7 g/dL (32-36); Mean Corpuscular Hgb 31.3 pg (27.0-32.0); Mean Corpuscular Volume 95.7 fL (81-99); Mean Platelet Vol. 9.7 fl (6.2-12.0); Monocyte# 0.66 X10^3/uL; Monocyte% 10.2 % (0-10); NRBC Flagged by Analyzer 0 % (0-5); Neutrophil # 4.19 X10^3/uL (2.7-7.7); Neutrophil % 65.1 % (47-70); Platelet Count 203 K/mm3 (150-450); RBC Distribution Width CV 12.5 % (11.6-14.6); RBC Distribution Width SD 43.8 fl (35.1-43.9); Red Blood Count 3.71 M/mm3 (4.2-5.4); White Blood Count 6.5 K/mm3 (4.4-11.0)
[2021-06-14 06:21] LABS: Anion Gap 6 (5-15); BUN 18 mg/dL (7-18); BUN/Creat Ratio 22.4 RATIO (10-20); Calcium,Total 8.5 mg/dL (8.5-10.1); Chloride 104 mmol/L (98-107); EST Glomerular Filtration Rate 74 mL/min (>60); Est Glom Filt Rate - Afr Amer 89 mL/min (>60); Estimated Creatinine Clearance 50.26 ml/min; Glucose 128 mg/dL (74-106); Potassium 3.6 mmol/L (3.5-5.1); Sodium Level 137 mmol/L (136-145)
[2021-06-14] MEDS: Acetaminophen 325 MG Tablet 650 MG PO (07:08)
[2021-06-14 07:23] VITALS: PULSE 70
[2021-06-14 07:35] VITALS: BP 121/59; PULSE 60; RESP 18; TEMP 36.8; O2SAT 94
[2021-06-14] MEDS: Enoxaparin 40 MG/0.4 ML Syringe SC (09:43)
[2021-06-14] MEDS: Famotidine 20 MG Tablet PO (09:44)
[2021-06-14] MEDS: hydroCHLOROthiazide 25 MG Tablet PO (09:44)
[2021-06-14] MEDS: Spironolactone 25 MG Tablet PO (09:44)
[2021-06-14] MEDS: amLODIPine 2.5 MG Tablet PO (09:44)
--- NOTE | 2021-06-14 10:00 | PCM.DC ---
Discharge Instructions Diet Discharge Diet: No restrictions Activity Discharge Activity: Return to Normal Activity Dressing / Incision Call your doctor if your incision/area has: Increased Redness and Foul Smelling Discharge Call your doctor if you observe: Fever of 101 or Higher Follow Up Care Please Follow Up With: Podiatry When: 1 week Test Results: Test results from this visit will be discussed in further detail at your follow-up appointment, if applicable. Discharge Plan Admission Admit Date/Time: 06/11/21 15:22 Primary Reason for Your Visit: cellulitis Attending Provider: Félix Carbajal Primary Care Provider: Suzie Huff Instructions Patient Instructions: ED Chest Pain, Noncardiac Discharge Orders/Prescriptions Prescriptions: New acetaminophen [Tylenol] 325 mg Tablet 650 mg PO Q4H PRN PRN (Reason: Fever, pain 1-07/24) Qty: 0 RF: 0 sulfamethoxazole-trimethoprim [Bactrim DS] 800-160 mg tablet 1 tab PO Q12H Qty: 8 RF: 0 Continued spironolacton-hydrochlorothiaz [Aldactazide] 1 EACH tablet 1 ea PO DAILY RF: 0 levothyroxine [Levoxyl] 200 MCG tablet 200 mcg PO DAILY RF: 0 amlodipine [Norvasc] 2.5 MG tablet 2.5 mg PO DAILY RF: 0 L.acidoph, paracasei,B. lactis 1 EACH capsule 1 ea PO DAILY RF: 0 cholecalciferol (vitamin D3) [Vitamin D3] 125 mcg (5,000 unit) Tablet 125 mcg PO DAILY RF: 0 Referrals / Follow Up: Suzie Huff MD [Primary Care Provider] - In 1 Week Disposition Disposition (needs filled in before D/C Order can be placed): Home, Self Care
--- NOTE | 2021-06-14 10:06 | PCM.DC.SUM ---
Providers Date of Admission: 06/11/21 Primary Care Physician: Dr. Suzie Huff MD Reason For Visit: RLE CELLULITIS Diagnosis Discharge Diagnosis (1) Sepsis: Status: Acute Code(s): A41.9 - Sepsis, unspecified organism (2) Cellulitis of right lower extremity: Status: Acute Code(s): L03.115 - Cellulitis of right lower limb Medications at Discharge Home Medications levothyroxine [Levoxyl] 200 mcg PO DAILY 12/01/15 spironolacton-hydrochlorothiaz [Aldactazide] 1 ea PO DAILY 12/01/15 L.acidoph, paracasei,B. lactis 1 ea PO DAILY 11/26/18 amlodipine [Norvasc] 2.5 mg PO DAILY 11/26/18 cholecalciferol (vitamin D3) [Vitamin D3] 125 mcg PO DAILY 06/11/21 acetaminophen [Tylenol] 650 mg PO Q4H PRN PRN #0 tab 06/14/21 sulfamethoxazole-trimethoprim [Bactrim DS] 1 tab PO Q12H #8 tab 06/14/21 Hospital Course Operations None Procedures None Summary of Care Provided Minutes Spent on Discharge: 32 Hospital Course: Presents with redness on her right leg. Patient has a history of cellulitis involving her right lower extremity previously. Patient was started on ampicillin/sulbactam during hospitalization her redness has steadily improved. Patient states that this is typical when she is put on antibiotics and does improve slowly. There was an area that was demarcated and the cellulitis has withdrawn from that area. Patient does have dermatitis of her feet and has been seeing a seal delivery vehicle officer for this. I am concerned the patient does have a tinea pedis which could potentially be the source of this recurrent cellulitis. Patient will be following up with podiatry. Patient instructed to not immerse her legs in the water but she may shower. Patient already has issues with dry skin and so showers every other day. Patient was put on ampicillin/sulbactam here. I will discharge her with trimethoprim/sulfamethoxazole and complete a 4-day course. For a total of 7 days of antibiotics. Physical Exam Const alert Skin Skin Narrative: Erythema involving her mid distal lower extremity. No fluctuance noted. More confluent in the posterior aspect of her leg distal to her knee. No fluctuance appreciated. Area withdrawn from the line of demarcation superiorly. Does have dermatitis involving both feet. Patient has had her right great toe nail removed. Psych affect normal Weight / BMI Weight Weight: 105.2 kg Body Mass Index (BMI) 40.7 ABG / Lab / Microbiology Data Result Diagrams: 06/14/21 05:24 06/14/21 05:24 Laboratory: Laboratory Results - last 24 hr 06/14/21 05:24: WBC 6.5, RBC 3.71 L, Hgb 11.6 L, Hct 35.5 L, MCV 95.7, MCH 31.3, MCHC 32.7, RDW Std Deviation 43.8, RDW Coeff of Armando 12.5, Plt Count 203, MPV 9.7, Immature Gran % (Auto) 0.600, Neut % (Auto) 65.1, Lymph % (Auto) 19.5, [place] % (Auto) 10.2 H, Eos % (Auto) 4.3, Baso % (Auto) 0.3, Absolute Neuts (auto) 4.2, Absolute Lymphs (auto) 1.26, Nucleated RBC % 0 06/14/21 05:24: Sodium 137, Potassium 3.6, Chloride 104, Carbon Dioxide 27.0, Anion Gap 6, BUN 18, Creatinine 0.80, Estim Creat Clear Calc 50.26, Est GFR (MDRD) Af Amer 89, Est GFR (MDRD) Non-Af 74, BUN/Creatinine Ratio 22.4 H, Glucose 128 H, Calcium 8.5 Microbiology: Microbiology 06/11/21 14:20 Urine, Clean Catch Urine Culture - Final Culture exhibits no growth. 06/10/21 22:29 Blood Culture (Wb) - Anticubital Right Blood Culture - Preliminary No growth in 48 hours. 06/10/21 22:50 Blood Culture (Wb) - Anticubital Right Blood Culture - Preliminary No growth in 48 hours. 06/10/21 22:50 Interface Orders SARS-CoV-2 Antigen (Rapid) - Final D/C Instructions Discharge Diet: No restrictions Call your doctor if your incision/area has: Increased Redness and Foul Smelling Discharge Call your doctor if you observe: Fever of 101 or Higher Please Follow Up With: Podiatry When: 1 week Meaningful Use Info Meaningful Use Diagnoses (Choose all that apply): None applicable Discharge Plan Admission Admit Date/Time: 06/11/21 15:22 Primary Reason for Your Visit: cellulitis Attending Provider: Félix Carbajal Primary Care Provider: Suzie Huff Instructions Patient Instructions: ED Chest Pain, Noncardiac Discharge Orders/Prescriptions Prescriptions: New acetaminophen [Tylenol] 325 mg Tablet 650 mg PO Q4H PRN PRN (Reason: Fever, pain 1-07/24) Qty: 0 RF: 0 sulfamethoxazole-trimethoprim [Bactrim DS] 800-160 mg tablet 1 tab PO Q12H Qty: 8 RF: 0 Continued spironolacton-hydrochlorothiaz [Aldactazide] 1 EACH tablet 1 ea PO DAILY RF: 0 levothyroxine [Levoxyl] 200 MCG tablet 200 mcg PO DAILY RF: 0 amlodipine [Norvasc] 2.5 MG tablet 2.5 mg PO DAILY RF: 0 L.acidoph, paracasei,B. lactis 1 EACH capsule 1 ea PO DAILY RF: 0 cholecalciferol (vitamin D3) [Vitamin D3] 125 mcg (5,000 unit) Tablet 125 mcg PO DAILY RF: 0 Referrals / Follow Up: Suzie Huff MD [Primary Care Provider] - In 1 Week Disposition Disposition (needs filled in before D/C Order can be placed): Home, Self Care Charges/Coding Visit Charges Inpatient E&M: 77760 Disch Hosp
[2021-06-14] MEDS: 0.9% Saline Lock 10 ML Syringe IV (11:36)
[2021-06-14 12:34] VITALS: BP 118/50; PULSE 62; RESP 16; TEMP 36.8; O2SAT 95
== END 2021-06-14 14:04 | disposition home or self-care (01) | DRG 603 ==
LOC: ED 23:55 → MS3 06-11 03:29
PROVIDERS: Student in an Organized Health Care Education/Training Program; Admitting Provider Family Medicine; Emergency Provider Emergency Medicine; PCP Internal Medicine
DX: L03.115 Cellulitis of right lower limb (principal); Z68.41 Body mass index [BMI] 40.0-44.9, adult; E87.6 Hypokalemia; L30.9 Dermatitis, unspecified; I89.0 Lymphedema, not elsewhere classified; B35.3 Tinea pedis; I10 Essential (primary) hypertension; I67.1 Cerebral aneurysm, nonruptured; E03.9 Hypothyroidism, unspecified; E66.01 Morbid (severe) obesity due to excess calories; G47.33 Obstructive sleep apnea (adult) (pediatric); G89.29 Other chronic pain; L40.50 Arthropathic psoriasis, unspecified; Z79.899 Other long term (current) drug therapy
CPT/HCPCS: 36415; 80048; 80053; 81001; 83605; 83735; 85025; 85610; 85730; 87040; 87086; 87426; 93005; 93971; 94660; 99251; 99285; J7030; J7050; A4216; G0463; J0295

== ENCOUNTER 2023-04-07 15:38 | Emergency (ER) | payer MEDICARE, SELFPAY ==
[2023-04-07 15:38] VITALS: BP 168/102; PULSE 65; RESP 18; TEMP 35.5; O2SAT 99; BMI 41.8
--- NOTE | 2023-04-07 15:50 | RAD_ITS ---
EXAM: XR LEFT SHOULDER COMPLETE, 2 OR MORE VIEWS CLINICAL INDICATION: Injury/Pain TECHNIQUE: Two or more views of the left shoulder. COMPARISON: No relevant prior studies available. FINDINGS: BONES/JOINTS: Unremarkable. No acute fracture. No AC joint widening. No sclerotic or destructive changes observed. SOFT TISSUES: Unremarkable. No soft tissue swelling or gas. No radiopaque foreign body. OTHER Visualized left upper ribs are intact. The visualized left lung is clear. RAD/Shoulder min 2 Views IMPRESSION: No acute fracture or dislocation. Electronically Signed: Costa Cuellar MD at 17:15 EDT ,
--- NOTE | 2023-04-07 15:52 | EDS_ITS ---
HPI <FLORIN Barbosa - Last Filed: 04/07/23 17:32> History of Present Illness Chief Complaint: Fall Narrative Narrative: 78-year-old female was coming home from vacation this morning and tripped over her travel bag on the ground landing on her left side. She states her shoulder and hip took the impact of the fall. No head injury or LOC. She was able to stand and has been ambulatory and taking ibuprofen for pain. Her left hip has been bothering her off and on for the last week but she was more active while on vacation. She denies weakness numbness or tingling. PFS <FLORIN Barbosa - Last Filed: 04/07/23 17:32> [facility] Medical History (Updated 04/07/23 @ 17:23 by FLORIN Barbosa) Cellulitis Chronic pain CPAP (continuous positive airway pressure) dependence Hypertension Hypothyroidism Morbid obesity Psoriatic arthritis Sleep apnea Home Medications levothyroxine 200 mcg tablet (Levoxyl) 200 mcg PO DAILY THYROID 12/01/15 [History Last Taken 06/27/20] spironolactone 25 mg-hydrochlorothiazide 25 mg tablet (Aldactazide) 1 ea PO DAILY 12/01/15 [History Last Taken 06/27/20] amlodipine 2.5 mg tablet (Norvasc) 2.5 mg PO DAILY BP 11/26/18 [History Last Taken 06/27/20] cholecalciferol (vitamin D3) 125 mcg (5,000 unit) tablet (Vitamin D3) 125 mcg PO DAILY supplement 06/11/21 [History Last Taken Unknown] acetaminophen 325 mg tablet (Tylenol) 650 mg PO Q4H PRN PRN Fever, pain 1-07/24 #0 tabs 06/14/21 [Rx Last Taken Unknown] ondansetron 4 mg disintegrating tablet 4 mg PO Q6H PRN nausea and vomiting 3 days #12 tabs 04/07/23 [Rx Last Taken Unknown] tramadol 50 mg tablet 50 mg PO Q6H PRN pain 3 days #12 tabs 04/07/23 [Rx Last Taken Unknown] Allergy/AdvReac Type Severity Reaction Status Date / Time hydrocodone bitartrate AdvReac Nausea Verified 04/07/23 15:41 [From Vicodin] Family History (Updated 06/11/21 @ 01:[address] Rossy Ruiz MD) Mother Cancer Breast cancer. Brain aneurysm Father Cancer Lung cancer with concurrent tobacco use history. Surgical History (Updated 06/11/21 @ 01:[address] Rossy Ruiz MD) History of cholecystectomy S/P tubal ligation Social History (Updated 06/11/21 @ 01:[address] Rossy Ruiz MD) household members: spouse Smoking Status: Never smoker alcohol intake: never substance use type: does not use ROS <FLORIN Barbosa - Last Filed: 04/07/23 17:32> ROS ED ROS Narrative Constitutional: Negative for fever, chills, malaise. CVS: Negative for chest pain, syncope. Respiratory: Negative for shortness of breath. GI: Negative for abdominal pain, nausea, vomiting. Neuro: Negative for motor/sensory dysfunction. Skin: Negative for wound. Musc: Positive for left hip and shoulder pain. EXAM <FLORIN Barbosa - Last Filed: 04/07/23 17:32> Physical Exam Narrative Exam Narrative: CONST: Patient sitting in no acute distress. EYES: Normal inspection. ENT: Normal inspection, moist mucous membranes NECK: Normal inspection. No midline spinal tenderness, no step off or crepitus. RESP: No respiratory distress, CTAB. Chest wall nontender. CVS: Regular rate and rhythm, no murmur, no gallop. ABD: Soft and nontender, no guarding or rebound, nondistended. Back: Normal inspection, no midline spinal tenderness or step-offs. SKIN: Color normal, no rash, warm, dry, intact. EXTREMITIES: Normal appearance, full ROM upper and lower extremities, 2+ radial DP pulses. Slight tenderness over left humeral head, no reproducible tenderness over lower extremities although she indicates her anterior pelvic area is painful. NEURO: Oriented x4. PSYCH: Normal affect. Const Vital Signs: 04/07/23 15:38 04/07/23 16:36 Temperature 96 F L Temperature Source Temporal Pulse Rate 65 Respiratory Rate 18 Respiratory Effort Normal Non-Labored Respiratory Depth Normal Respiratory Pattern Normal Pulse Ox 99 Oxygen Delivery Method Room Air Room Air <Dr. Millicent Richardson MD - Last Filed: 04/07/23 18:28> Physical Exam Const Vital Signs: 04/07/23 15:38 04/07/23 16:36 Temperature 96 F L Temperature Source Temporal Pulse Rate 65 Respiratory Rate 18 Respiratory Effort Normal Non-Labored Respiratory Depth Normal Respiratory Pattern Normal Pulse Ox 99 Oxygen Delivery Method Room Air Room Air [facility] <FLORIN Barbosa - Last Filed: 04/07/23 17:32> [facility] Narrative Medical decision making narrative: History gathered from: Patient, spouse and son Patient had mechanical fall injuring her left shoulder and hip. No head injury. She is able to ambulate and has no signs of external injury. Slightly tender over the left hemipelvis but it stable. No shortening or rotation and she is moving the upper or lower extremities with distal pulses intact. Left shoulder and hip x-rays are negative for acute findings. I prescribed tramadol (she did not want [place] or Percocet as they were too strong) and recommended ice and ibuprofen as needed. She will follow-up with her PCP and was discharged in stable condition. Differential: Shoulder and hip contusion versus fracture Radiography Diagnostic Testing: Clinical Impression(s) from Imaging Studies Shoulder X-Ray 04/07/23 15:50 IMPRESSION: No acute fracture or dislocation. Electronically Signed: Costa Cuellar MD at 17:15 EDT , Hip/Pelvis X-Ray 04/07/23 16:15 IMPRESSION: No acute fracture or dislocation. Electronically Signed: Costa Cuellar MD at 17:13 EDT , <Dr. Millicent Richardson MD - Last Filed: 04/07/23 18:28> [facility] Radiography Diagnostic Testing: Clinical Impression(s) from Imaging Studies Shoulder X-Ray 04/07/23 15:50 IMPRESSION: No acute fracture or dislocation. Electronically Signed: Costa Cuellar MD at 17:15 EDT , Hip/Pelvis X-Ray 04/07/23 16:15 IMPRESSION: No acute fracture or dislocation. Electronically Signed: Costa Cuellar MD at 17:13 EDT , Treatment and Re-Evaluation :: Patient seen and evaluated with SAIDA. I personally interviewed and examined the patient. I was involved in all aspects of patient's orders, interpretation of r esults, and treatment. Patient presents with left shoulder and left hip pain after a fall. She has a history of problems with her sciatic nerve and states that she will frequently go to a chiropractor. She is been having pain across the left posterior hip and around into the thigh. Earlier today she fell landing on her left side and now has left shoulder pain as well. She did not strike her head. No loss of consciousness. Patient sitting upright in bed no acute distress. Alert and oriented. Head and neck examination reveals no external sign of trauma. Heart is regular rate and rhythm. Lung sounds are clear. Abdomen is soft and nontender. Patient has mild tenderness at the left shoulder. She does have good range of motion with no evidence of fracture or dislocation. Strong distal pulses are noted. Patient has mild tenderness over the lateral trochanter of the left hip. Minimal pain with logroll. Equal leg lengths are noted. Left shoulder and left hip/pelvis x-rays are obtained. Per my interpretation no evidence of acute fracture. Radiology interpretation is reviewed and agrees. Patient will be given a prescription for tramadol to help with pain. She will continue ibuprofen and/or Tylenol. Discharge Plan Triage Chief Complaint: Fall ED Midlevel Provider: Danna St ED Provider: Richardson,Millicent Dx/Rx/DC Orders Clinical Impression: Contusion of left shoulder, Contusion of hip, left, History of sciatica Instructions: Bruises (Contusions) Prescriptions: New tramadol 50 mg tablet 50 mg PO Q6H PRN (Reason: pain) 3 Days Qty: 12 0RF Rx Instructions: diagnosis left hip pain m25.552 ondansetron 4 mg tablet,disintegrating 4 mg PO Q6H PRN (Reason: nausea and vomiting) 3 Days Qty: 12 0RF No Action spironolacton-hydrochlorothiaz [Aldactazide] 1 EACH tablet 1 ea PO DAILY Label Comments: blood pressure/diuretic had 12/02/15 levothyroxine [Levoxyl] 200 MCG tablet 200 mcg PO DAILY Label Comments: thyroid had dose 12/02/15 amlodipine [Norvasc] 2.5 MG tablet 2.5 mg PO DAILY cholecalciferol (vitamin D3) [Vitamin D3] 125 mcg (5,000 unit) Tablet 125 mcg PO DAILY acetaminophen [Tylenol] 325 mg Tablet 650 mg PO Q4H PRN PRN (Reason: Fever, pain 1-10/10) Qty: 0 0RF Primary Care Provider: Suzie Huff Referrals: Suzie Huff MD [Primary Care Provider] - Activity Restrictions/Additional Instructions: Use ice and take ibuprofen and tramadol as needed. If the tramadol makes you nauseous I prescribed a antinausea medicine. Follow-up with your primary care doctor. Disposition Disposition: Home, Self Care Discharge Date/Time: 04/07/23 17:56
--- NOTE | 2023-04-07 16:15 | RAD_ITS ---
EXAM: XR LEFT HIP WITH PELVIS WHEN PERFORMED, 2 OR 3 VIEWS CLINICAL INDICATION: Injury/Pain TECHNIQUE: Two or three views of the left hip with pelvis when performed. COMPARISON: No comparison radiographs are available. Correlation is made to CT report of 01/23/2011. FINDINGS: BONES/JOINTS: No acute fracture or dislocation. Lower lumbar degenerative disc disease and facet arthritis. 3.8 cm rounded area of dystrophic calcification with lobulated margins projected over the pubic symphysis, possibly an old calcified hematoma, and this was noted on previous CT report of 01/23/2011. Hip joint space is relatively preserved. Sacroiliac joints are unremarkable. No widening of the pubic symphysis. SOFT TISSUES: Unremarkable. No soft tissue swelling or gas. RAD/HIP, UNI W/ Pelvis 2-3 Views IMPRESSION: No acute fracture or dislocation. Electronically Signed: Costa Cuellar MD at 17:13 EDT ,
[2023-04-07] MEDS: Ibuprofen 600 MG Tablet PO (16:26)
== END 2023-04-07 17:56 | disposition home or self-care (01) ==
PROVIDERS: Emergency Provider Emergency Medicine; PCP Internal Medicine; Visit Provider Emergency Medicine
DX: S40.012A Contusion of left shoulder, initial encounter (principal); S70.02XA Contusion of left hip, initial encounter; I10 Essential (primary) hypertension; E03.9 Hypothyroidism, unspecified; Z79.899 Other long term (current) drug therapy; W19.XXXA Unspecified fall, initial encounter
CPT/HCPCS: 73030; 73502; 99283

== ENCOUNTER 2023-04-09 18:03 | Emergency (ER) | payer MEDICARE, SELFPAY ==
[2023-04-09 18:03] VITALS: BP 139/114; PULSE 75; RESP 18; TEMP 36.2; O2SAT 94; BMI 45.3
--- NOTE | 2023-04-09 20:21 | CT_ITS ---
STUDY: CT LUMBAR SPINE WITHOUT CONTRAST REASON FOR EXAM: Female, 78 years old. pain, fall RADIATION DOSAGE (If Supplied By Facility): CTDIvol = ( 46.72 ) mGy, DLP = ( 1766.25 ) mGycm TECHNIQUE: The patient was scanned in a multi detector CT scanner. High resolution transaxial imaging was performed. Images were obtained from T12 to S1. Sagittal and coronal images were reconstructed. Individualized dose optimization techniques were used for this CT. COMPARISON: None FINDINGS: Normal lumbar lordosis. Mild dextroscoliosis centered at L2/L3. Normal vertebrae of the lumbar spine. L1-2: Mild bilateral facet hypertrophy and moderately minimal endplate hypertrophy. 2 mm retrolisthesis of L1 on L2 with a mild bilobed disc protrusion with vacuum disc formation produces moderate spinal stenosis and moderate bilateral neural foraminal stenosis. L2-3: Moderate facet hypertrophy and ligament flavum hypertrophy. 2 mm retrolisthesis of L2 on L3 with a moderate bilobed disc protrusion with vacuum disc formation produces severe spinal stenosis and moderate bilateral neural foraminal stenosis. L3-4: Moderate bilateral facet hypertrophy and ligament flavum hypertrophy. Moderate bilobed disc protrusion produces moderate spinal stenosis and moderate bilateral neural foraminal stenosis. L4-5: Severe bilateral facet hypertrophy and mild ligament flavum hypertrophy. 5 mm of anterolisthesis of L4 on L5 with a mild broad disc protrusion produces mild spinal stenosis and mild bilateral neural foraminal stenosis. L5-S1: Severe bilateral facet hypertrophy and mild ligament flavum hypertrophy. 2 mm of anterolisthesis of L5 on S1 with a mild broad disc protrusion induce mild spinal stenosis and moderate bilateral neural foraminal stenosis. Normal visualized paraspinous soft tissue structures. CT/Spine Lumbar without Contrast IMPRESSION: No acute fracture or subluxation. Mild dextroscoliosis and degenerative disc disease as described above. Electronically Signed: Robert Gimenez MD at 21:36 EDT ,
--- NOTE | 2023-04-09 20:21 | CT_ITS ---
STUDY: CT PELVIS WITHOUT CONTRAST REASON FOR EXAM: Female, 78 years old. left hip pain, fall. neg xray RADIATION DOSAGE (If Supplied By Facility): CTDIvol = ( 28.21 ) mGy, DLP = ( 873.48 ) mGycm TECHNIQUE: Transaxial imaging of the pelvis was performed without oral contrast, and without intravenous administration of contrast material. Individualized dose optimization techniques were used for this CT. COMPARISON: X-ray 04/07/2023 FINDINGS: Normal urinary bladder. Normal visualized small intestine. Normal visualized colon. There is no pelvic fluid. There is no pelvic mass lesion or lymphadenopathy. Normal visualized pelvic arteries. Normal abdominal wall. Normal osseous structures. Large bridging osteophyte along the posterior aspect of the symphysis pubis. CT/Pelvis without IV Contrast IMPRESSION: No acute fracture or dislocation. Electronically Signed: Robert Gimenez MD at 21:40 EDT ,
[2023-04-09] MEDS: HYDROmorphone 1 MG/ML Syringe 0.5 MG IV (20:51)
[2023-04-09] MEDS: Ondansetron 4 MG/2 ML Vial IV (20:51)
[2023-04-09 21:10] LABS: Absolute Lymphocyte Count 2.45 X10^3/uL (0.83-4.51); Absolute Neutrophil Count 6.8 X10^3/uL (2.0-7.7); Basophil# 0.06 X10^3/uL; Basophil% 0.6 % (0-1); Eosinophil# 0.12 X10^3/uL; Eosinophils% 1.2 % (0-5); Hematocrit 41.2 % (37-47); Hemoglobin 13.8 g/dL (12.0-15.0); Lymphocyte # 2.45 X10^3/ul (0.83-4.51); Lymphocyte % 23.9 % (19-41); Mean Corp Hgb Conc 33.5 g/dL (32-36); Mean Corpuscular Hgb 31.4 pg (27.0-32.0); Mean Corpuscular Volume 93.8 fL (81-99); Mean Platelet Vol. 9.7 fl (6.2-12.0); Monocyte# 0.78 X10^3/uL; Monocyte% 7.6 % (0-10); NRBC Flagged by Analyzer 0 % (0-5); Neutrophil % 66.3 % (47-70); Platelet Count 237 K/mm3 (150-450); RBC Distribution Width CV 12.5 % (11.6-14.6); RBC Distribution Width SD 43.2 fl (35.1-43.9); Red Blood Count 4.39 M/mm3 (4.2-5.4); White Blood Count 10.3 K/mm3 (4.4-11.0)
[2023-04-09 21:39] LABS: Anion Gap 7 (5-15); BUN 26 mg/dL (7-18); Calcium,Total 9.2 mg/dL (8.5-10.1); Chloride 103 mmol/L (98-107); Creatinine, Serum 0.96 mg/dL (0.55-1.02); EST Glomerular Filtration Rate 60 mL/min (>60); Est Glom Filt Rate - Afr Amer 72 mL/min (>60); Glucose 110 mg/dL (74-106); Potassium 3.4 mmol/L (3.5-5.1); Sodium Level 137 mmol/L (136-145)
[2023-04-09] MEDS: HYDROmorphone 0.5 MG/0.5 ML SYRINGE IV (21:47)
--- NOTE | 2023-04-09 22:18 | ED.VIS.LOWEX ---
HPI History of Present Illness Chief Complaint: Lower Extremity Injury Informant: patient Narrative Narrative: Patient is a 78-year-old female with history of hypertension, hypothyroid and sciatica presenting with worsening left hip and leg pain. Patient had a mechanical fall 2 days ago. She states her foot got caught on a bag and she tripped and fell landed on her left side specifically her shoulder and her hip. She states that her shoulder feels fine now. She was seen in the ER and had a x-ray done of her pelvis. This was negative. She was given tramadol. She states her pain is gotten worse. She cannot find a position of comfort. She has pain rating from her lower back around to her left hip and down the front of her left thigh. She has some intermittent numbness in the from the left thigh. Denies any saddle anesthesia, bowel or bladder incontinence or fevers. Denies any cyst abdominal pain. Does have some chronic left-sided hip pain but this is much worse. No other complaints or concerns at this time.-Take the tramadol every 6 hours with no relief. [facility] Medical History (Updated 04/09/23 @ 23:[address] Allie Tang, DO) Cellulitis Chronic pain CPAP (continuous positive airway pressure) dependence Hypertension Hypothyroidism Morbid obesity Psoriatic arthritis Sleep apnea Home Medications levothyroxine 200 mcg tablet (Levoxyl) 200 mcg PO DAILY THYROID 12/01/15 [History Last Taken 06/27/20] spironolactone 25 mg-hydrochlorothiazide 25 mg tablet (Aldactazide) 1 ea PO DAILY 12/01/15 [History Last Taken 06/27/20] amlodipine 2.5 mg tablet (Norvasc) 2.5 mg PO DAILY BP 11/26/18 [History Last Taken 06/27/20] cholecalciferol (vitamin D3) 125 mcg (5,000 unit) tablet (Vitamin D3) 125 mcg PO DAILY supplement 06/11/21 [History Last Taken Unknown] acetaminophen 325 mg tablet (Tylenol) 650 mg PO Q4H PRN PRN Fever, pain 1-07/24 #0 tabs 06/14/21 [Rx Last Taken Unknown] ondansetron 4 mg disintegrating tablet 4 mg PO Q6H PRN nausea and vomiting 3 days #12 tabs 04/07/23 [Rx Last Taken Unknown] tramadol 50 mg tablet 50 mg PO Q6H PRN pain 3 days #12 tabs 04/07/23 [Rx Last Taken Unknown] oxycodone 5 mg tablet 5 mg PO Q6H PRN pain 3 days #12 tabs 04/09/23 [Rx Last Taken Unknown] prednisone 20 mg tablet 40 mg PO DAILY #8 TABLETS 04/09/23 [Rx Last Taken Unknown] Allergy/AdvReac Type Severity Reaction Status Date / Time hydrocodone bitartrate AdvReac Nausea Verified 04/09/23 18:05 [From Vicodin] Family History (Updated 06/11/21 @ 01:[address] Rossy Ruiz MD) Mother Cancer Breast cancer. Brain aneurysm Father Cancer Lung cancer with concurrent tobacco use history. Surgical History (Updated 06/11/21 @ 01:[address] Rossy Ruiz MD) History of cholecystectomy S/P tubal ligation Social History (Updated 06/11/21 @ 01:[address] Rossy Ruiz MD) household members: spouse Smoking Status: Never smoker alcohol intake: never substance use type: does not use ROS ROS ED Constitutional Constitutional ED: Denies chills or fever(s) Respiratory/Chest Respiratory/Chest: Denies cough Gastrointestinal Gastrointestinal: Denies nausea or vomiting Genitourinary Genitourinary ED: Denies dysuria or urinary frequency Musculoskeletal Musculoskeletal: Reports back pain and other Details: left hip pain Integumentary Denies rash Neurologic Neurologic: Denies paresthesias or weakness Psychiatric Psychiatric: Denies anxiety Hematologic/Lymphatic Hematologic/Lymphatic: Denies easy bleeding or easy bruising EXAM Physical Exam Const Vital Signs: 04/09/23 18:03 04/10/23 00:00 Temperature 97.1 F L Temperature Source Temporal Pulse Rate 75 74 Respiratory Rate 18 18 Blood Pressure 139/114 H Blood Pressure Mean 122 Pulse Ox 94 Oxygen Delivery Method Room Air Positive well nourished, well developed and obese General Appearance ED: well developed Nutritional Appearance: obese HEENT Reports moist mucous membranes Neck supple Chest Wall inspection of chest normal and palpation of chest normal Resp normal respiratory effort Cardio regular rate, regular rhythm and no murmurs Cardio Narrative: 2+ radial and DP pulses GI non-tender and non-distended Back/Spine Back/Spine Narrative: tenderness to palpation of left SI joint Thoracic Spine / Upper Back: Negative for thoracic spinal tenderness Lumbar Spine / Lower Back: straight leg raise positive - left; Negative for lumbar spinal tenderness Extremity normal to inspection Extremity Narrative: No deformity of the extremities. No pain on logroll of the lower extremities. No tenderness palpation of the greater trochanter. General Extremety ED: Yes weight-bearing difficulty; Negative for edema General Extremity: weight-bearing difficulty; Negative for edema Neuro oriented x3, moves all extremities and no sensory deficits noted Sensorium / Orientation: alert Motor Exam: strength 5/5 throughout Psych mental status grossly normal Skin no wounds MDM MDM MDM Narrative Medical decision making narrative: 2 days ago thePatient evaluated for worsening back and left hip pain after mechanical fall. Patient x-ray did not show any acute process. This is reviewed by myself. Patient is having significant pain. She is hemodynamically stable in the ER. Is given IV Dilaudid with some improvement of her pain. Does require redose. She pain that seems more like sciatica up in the setting of trauma will obtain a CT of her lumbar spine as well as her pelvis to look for signs of occult fracture. She does not have physis with cauda equina syndrome. I do not think requires an emergent MRI. CT does not show any acute fracture but does show significant chronic appearing changes to her lumbar spine. This definitely could be causing sciatica. Patient is able to ambulate in the ER. She has improvement of pain after 2 doses of Dilaudid. Is offered admission for further pain control and PT evaluation but patient would like to go home. She does have a walker to use at home. She is counseled she should use that instead of a cane. She has her at home and her daughter can stay with her tonight to help as needed. Patient will be switched from tramadol to oxycodone for pain control. She states she has nausea medicine at home if she needs it. Is given referral for spine due to the changes seen on her CT. Patient verbalizes agreement understand this plan. Discharged home in stable condition. Lab Data Attestation: I reviewed the patient's lab results. Labs: Laboratory Results - last 24 hr 04/09/23 04/09/23 20:45 20:45 WBC 10.3 RBC 4.39 Hgb 13.8 Hct 41.2 MCV 93.8 MCH 31.4 MCHC 33.5 RDW Std Deviation 43.2 RDW Coeff of Armando 12.5 Plt Count 237 MPV 9.7 Immature Gran % (Auto) 0.400 Neut % (Auto) 66.3 Lymph % (Auto) 23.9 [place] % (Auto) 7.6 Eos % (Auto) 1.2 Baso % (Auto) 0.6 Absolute Neuts (auto) 6.8 Absolute Lymphs (auto) 2.45 Nucleated RBC % 0 Sodium 137 Potassium 3.4 L Chloride 103 Carbon Dioxide 27.0 Anion Gap 7 BUN 26 H Creatinine 0.96 Estim Creat Clear Calc 40.60 Est GFR (MDRD) Af Amer 72 Est GFR (MDRD) Non-Af 60 BUN/Creatinine Ratio 27.0 H Glucose 110 H Calcium 9.2 Radiography Diagnostic Testing: Clinical Impression(s) from Imaging Studies Lumbar Spine CT 04/09/23 20:21 IMPRESSION: No acute fracture or subluxation. Mild dextroscoliosis and degenerative disc disease as described above. Electronically Signed: Robert Gimenez MD at 21:36 EDT Reading Location ID and State: [id number] / [employer] Tel , Service support , Pelvis CT 04/09/23 20:21 IMPRESSION: No acute fracture or dislocation. Electronically Signed: Robert Gimenez MD at 21:40 EDT , Discharge Plan Triage Chief Complaint: Lower Extremity Injury ED Provider: Allie Tang Dx/Rx/DC Orders Clinical Impression: Acute left-sided back pain with sciatica, Acute pain of left hip Instructions: ED Hip Strain, ED Sciatica Prescriptions: New oxycodone 5 mg tablet 5 mg PO Q6H PRN (Reason: pain) 3 Days Qty: 12 0RF prednisone 20 mg tablet 40 mg PO DAILY Qty: 8 0RF No Action spironolacton-hydrochlorothiaz [Aldactazide] 1 EACH tablet 1 ea PO DAILY Label Comments: blood pressure/diuretic had 12/02/15 levothyroxine [Levoxyl] 200 MCG tablet 200 mcg PO DAILY Label Comments: thyroid had dose 12/02/15 amlodipine [Norvasc] 2.5 MG tablet 2.5 mg PO DAILY cholecalciferol (vitamin D3) [Vitamin D3] 125 mcg (5,000 unit) Tablet 125 mcg PO DAILY acetaminophen [Tylenol] 325 mg Tablet 650 mg PO Q4H PRN PRN (Reason: Fever, pain 1-07/24) Qty: 0 0RF tramadol 50 mg tablet 50 mg PO Q6H PRN (Reason: pain) 3 Days Qty: 12 0RF Rx Instructions: diagnosis left hip pain m25.552 ondansetron 4 mg tablet,disintegrating 4 mg PO Q6H PRN (Reason: nausea and vomiting) 3 Days Qty: 12 0RF Primary Care Provider: Suzie Huff Referrals: Suzie Huff MD [Primary Care Provider] - Hector Pond DO [Med Staff - Active Staff] - As Needed Activity Restrictions/Additional Instructions: The CT of your hips/pelvis as well as your lumbar spine did not show any acute fracture or injury. It did show arthritic changes and spinal stenosis. I recommend that you follow-up with a spine doctor. You been given referral for this. I suspect that your fall flared up the irritation of sciatica which is was causing your pain. As we discussed use your walker. You may alternate ibuprofen and Tylenol as well at home. If you feel that you cannot take care yourself adequately or you cannot control your pain at home please return to the emergency room to be evaluated for admission to the hospital. Disposition Disposition: Home, Self Care Discharge Date/Time: 04/10/23 00:00
[2023-04-09] MEDS: oxyCODONE 5 MG Tablet PO (23:40)
[2023-04-09] MEDS: predniSONE 20 MG Tablet 40 MG PO (23:40)
[2023-04-10] VITALS: PULSE 74; RESP 18
== END 2023-04-10 | disposition home or self-care (01) ==
PROVIDERS: Emergency Provider Emergency Medicine; PCP Internal Medicine; Visit Provider Emergency Medicine
DX: M54.42 Lumbago with sciatica, left side (principal); E66.01 Morbid (severe) obesity due to excess calories; Z68.42 Body mass index [BMI] 45.0-49.9, adult; W01.0XXA Fall on same level from slipping, tripping and stumbling without subsequent striking against object, initial encounter; M25.552 Pain in left hip; I10 Essential (primary) hypertension; E03.9 Hypothyroidism, unspecified; G89.29 Other chronic pain; Z79.899 Other long term (current) drug therapy
CPT/HCPCS: 72131; 72192; 80048; 85025; 96374; 96375; 96376; 99283; A4216; J2405

== ENCOUNTER → 2024-11-28 | Outpatient (CLI) | payer MEDICARE, SELFPAY ==
--- NOTE | 2024-11-28 09:54 | VDLE_ITS ---
Reason For Study Reason For Study: BLE Swelling RIGHT LEFT CFV is compressible, spontaneous, phasic, competent CFV is compressible, spontaneous, phasic, competent, and demonstrates normal augmentation. and demonstrates normal augmentation. FV is compressible, spontaneous, phasic, competent FV is compressible, spontaneous, phasic, competent and demonstrates normal augmentation. and demonstrates normal augmentation. POP V is compressible, spontaneous, phasic, competent POP V is compressible, spontaneous, phasic, competent and demonstrates normal augmentation. and demonstrates normal augmentation. T/P Trunk is compressible. T/P Trunk is compressible. PTV is compressible. PTV is compressible. RT PerV is compressible. LT PerV is compressible. Non vascularized anechoic area noted in Rt Pop Fossa SFJ is INCOMPETENT and measures 0.70 cm. measuring approximately 4.94cm x 1.78cm. GSV proximal thigh measures 0.32 x 0.30 cm. SFJ is INCOMPETENT and measures 0.80 cm. GSV at knee measures 0.34 x 0.30 cm. GSV proximal thigh measures 0.43 x 0.43 cm. GSV INCOMPETENT throughout for greater than 0.5 GSV at knee measures 0.48 x 0.54 cm. seconds. GSV above knee is competent. SSV mid calf is competent and measures 0.20 x 0.18 GSV below knee is INCOMPETENT for greater than 0.5 cm. seconds. ASV proximal thigh is INCOMPETENT for greater than 0.5 seconds and measures 0.49 x 0.46 cm. ASV mid calf is INCOMPETENT for greater than 0.5 seconds and measures 0.30 x 0.40 cm. SSV mid calf is competent and measures 0.21 x 0.20 cm. Procedure Exam performed in department. This is a venous duplex using B-mode, color flow and spectral Doppler. The exam was diagnostic. Patient was scanned in reverse Trendelenburg position during reflux assessment. VL/Venous Duplex US - Thad Extrem Interpretation Summary Deep veins of the right lower extremity are patent and compressible segmentally . There is no evidence of right lower extremity deep vein thrombosis. The right great saphenous vein appears patent a nd compressible segmentally. Deep veins of the bilateral lower extremities are patent and compressible segmentally. The re is no evidence of bilateral lower extremity deep vein thrombosis. The bilateral great saphenous veins appear agarwal nt and compressible segmentally. Positive for reflux in the right saphenofemoral junction, great saphenous vein below the knee, accessory saphenous vein in the thigh and calf. Positive for reflux in the left saphenofemoral junction, great saphenous vein t hroughout Ordering Physician: Margaret Leon Referring Physician: Suzie Huff Performed By: Malick Watkins RVT
== END | disposition home or self-care (01) ==
LOC: CVS 09:52
PROVIDERS: PCP Internal Medicine; Referring Provider Physician Assistant; Visit Provider Physician Assistant
DX: I87.331 Chronic venous hypertension (idiopathic) with ulcer and inflammation of right lower extremity (principal); I87.322 Chronic venous hypertension (idiopathic) with inflammation of left lower extremity
CPT/HCPCS: 93970

== ENCOUNTER → 2025-01-26 | Outpatient (CLI) | payer MEDICARE, SELFPAY ==
--- NOTE | 2025-01-26 17:10 | RAD_ITS ---
PROCEDURE: KNEE 4 OR MORE VIEWS 01/26/2025 REASON FOR EXAM: PAIN TECHNIQUE: 3 view(s) of the LEFT knee COMPARISON: NONE. FINDINGS: Mild osteopenia. Mild tricompartmental changes of degenerative joint disease. Enthesophyte formation at the upper pole of the patella. No fracture or dislocation is seen. No lytic or blastic aggressive bone lesion is identified. RAD/Knee 4 or More Views IMPRESSION: No radiographic evidence of an acute bone abnormality. Reading [facility] [id number]
== END | disposition home or self-care (01) ==
LOC: RAD 16:51
PROVIDERS: PCP Internal Medicine; Referring Provider Clinical Nurse Specialist Adult Health; Visit Provider Clinical Nurse Specialist Adult Health
DX: M25.562 Pain in left knee (principal)
CPT/HCPCS: 73564

== ENCOUNTER 2025-02-23 16:07 | Emergency (ER) | payer MEDICARE, SELFPAY ==
[2025-02-23 16:08] VITALS: BP 167/69; PULSE 70; RESP 16; TEMP 36.6; O2SAT 99; BMI 40.3
[2025-02-23 16:37] LABS: Absolute Lymphocyte Count 2.53 X10^3/uL (0.83-4.51); Absolute Neutrophil Count 7.3 X10^3/uL (2.0-7.7); Basophil# 0.05 X10^3/uL; Basophil% 0.5 % (0-1); Eosinophil# 0.14 X10^3/uL; Eosinophils% 1.3 % (0-5); Hematocrit 42.3 % (37-47); Hemoglobin 14.4 g/dL (12.0-15.0); Lymphocyte # 2.53 X10^3/ul (0.83-4.51); Lymphocyte % 23.3 % (19-41); Mean Corpuscular Hgb 31.4 pg (27.0-32.0); Mean Corpuscular Volume 92.2 fL (81-99); Mean Platelet Vol. 8.9 fl (6.2-12.0); Monocyte# 0.77 X10^3/uL; Monocyte% 7.1 % (0-10); NRBC Flagged by Analyzer 0 % (0-5); Neutrophil # 7.31 X10^3/uL (2.7-7.7); Neutrophil % 67.3 % (47-70); Platelet Count 258 K/mm3 (150-450); RBC Distribution Width CV 12.8 % (11.6-14.6); RBC Distribution Width SD 43.1 fl (35.1-43.9); Red Blood Count 4.59 M/mm3 (4.2-5.4); White Blood Count 10.9 K/mm3 (4.4-11.0)
[2025-02-23 17:05] LABS: ALB/GLOB Ratio 1.1 RATIO (0.9-2.4); AST(SGOT) 17 U/L (<=31); Alanine Aminotransfer ALT/SGPT 10 U/L (<=34); Alkaline Phosphatase 139 U/L (35-104); Anion Gap 10 (5-15); BUN 21 mg/dL (4-19); BUN/Creat Ratio 25.1 RATIO (10-20); Calcium,Total 9.5 mg/dL (7.6-11.0); Carbon Dioxide 26.5 mmol/L (21.0-32.0); Chloride 102 mmol/L (98-108); Creatinine, Serum 0.84 mg/dL (0.70-1.20); EST Glomerular Filtration Rate 71 (>60); Estimated Creatinine Clearance 62.16 ml/min (50-250); Globulin 3.6 g/dL (2.2-4.2); Glucose 99 mg/dL (70-99); Lipase 21 U/L (13-75); Potassium 4.3 mmol/L (3.3-5.1); Protein, Total 7.6 g/dL (5.9-8.4); Sodium Level 139 mmol/L (133-145); Total Bilirubin 0.32 mg/dL (0.00-1.30)
[2025-02-23 18:07] VITALS: BP 156/63; PULSE 68; O2SAT 100
--- NOTE | 2025-02-23 18:20 | EX.ED.DYSGE1 ---
HPI History of Present Illness Chief Complaint: Abd Pain [facility] Medical History Morbid obesity Psoriatic arthritis Chronic pain CPAP (continuous positive airway pressure) dependence Sleep apnea Hypertension Cellulitis Hypothyroidism Home Medications ?Medication ?Instructions ?Recorded ?Last Taken ?Type levothyroxine 200 mcg tablet 200 mcg PO DAILY THYROID 12/01/15 06/27/20 History (Levoxyl) spironolactone 25 1 ea PO DAILY 12/01/15 06/27/20 History mg-hydrochlorothiazide 25 mg tablet (Aldactazide) cholecalciferol (vitamin D3) 125 125 mcg PO DAILY supplement 06/11/21 Unknown History mcg (5,000 unit) tablet (Vitamin D3) acetaminophen 325 mg tablet 650 mg (2 x 325 mg) PO Q4H PRN PRN 06/14/21 Unknown Rx (Tylenol) Fever, pain 1-07/24 #0 tabs amlodipine 2.5 mg tablet (Norvasc) 5 mg PO DAILY BP 10/17/24 Unknown History diosmin complex no.1 630 mg tablet 1 tab PO QDAY #30 tabs 12/27/24 Unknown Rx (Vasculera) triamcinolone acetonide 0.5 % 1 applic topical BID 14 days #15 12/27/24 Unknown Rx topical cream grams ascorbic acid (vitamin C) 1,000 mg 500 mg PO DAILY 02/23/25 Unknown History tablet,extended release (C Complex) Allergy/AdvReac Type Severity Reaction Status Date / Time hydrocodone bitartrate (From AdvReac Nausea Verified 12/26/24 15:10 Vicodin) Family History Mother Cancer Breast cancer. Brain aneurysm Father Cancer Lung cancer with concurrent tobacco use history. Surgical History H/O shoulder surgery S/P tubal ligation History of cholecystectomy Social History household members: spouse Smoking Status: Never smoker alcohol intake: never substance use type: does not use EXAM Physical Exam Const Vital Signs: 02/23/25 16:08 02/23/25 18:07 02/23/25 20:00 Temperature 97.8 F Temperature Source Oral Pulse Rate 70 68 66 Respiratory Rate 16 16 Blood Pressure 167/69 H 156/63 H 125/54 H Blood Pressure Mean 101 94 77 Pulse Ox 99 100 95 Oxygen Delivery Method Room Air Room Air Room Air 02/23/25 22:00 02/23/25 23:32 Temperature 98.7 F Temperature Source Pulse Rate 59 L 62 Respiratory Rate 16 16 Blood Pressure 121/62 H 140/61 H Blood Pressure Mean 81 87 Pulse Ox 96 92 Oxygen Delivery Method Room Air [facility] [place] Medical decision making narrative: HISTORY OF PRESENT ILLNESS: Chief complaint: Abdominal pain 79-year-old female history of chronic venous stasis of the lower extremities, hypertension, presents with 2 weeks of abdominal pain. States the pain is not worse with food. She points to the right mid abdomen in terms of location of pain. States the pain is constant. She also states that radiates to her groin. She states it feels like there is some sort of stone or hard object in her belly. Denies history of vomiting. Last bowel movement this morning. She denies melena or medic easier. She denies urinary frequency, urgency or dysuria. Notes history of cholecystectomy. No she still has her appendix. REVIEW OF SYSTEMS: Pertinent positives: As per HPI Pertinent negatives: As per HPI PHYSICAL EXAM: Nursing triage notes reviewed, Vital signs reviewed Constitutional: please see [facility] HENT: MMM Eyes: Pupils equal round and reactive to light, Extraocular muscles intact Neck: No stridor, no JVD, full neck ROM Lungs: Clear to auscultation, No wheezing or rales. No increased work of breathing, no conversational dyspnea, no accessory muscle use, no nasal flaring. No respiratory distress noted Heart: Regular rate and rhythm, No murmurs, No rubs and No gallops, 2+ distal pulses (radial, femoral, posterior tibial) in all extremities Abdomen: Soft, right side abdominal tenderness but no rigidity, rebound or guarding, no obvious peritoneal signs, no palpable pulsatile abdominal masses, no auscultated abdominal bruit : No CVAT Extremities: No edema Neuro: No new focal neurological deficits, cranial nerves II through XII intact, 5/5 strength in all present extremities. Intact sensation to light touch in all present extremities, 2+ reflexes bilateral patella tendons. Skin: No rash or lesions noted MEDICAL DECISION MAKING: Chief Complaint: please see HPI External records reviewed: Reviewed prior imaging studies Factors affecting care: As per HPI Social determinants of health: none History obtained from others: Fama Consults: none [facility] Narrative: The patient was initially hemodynamically stable, afebrile and nontoxic-appearing. Exam with right-sided tenderness I considered the following differential diagnosis: Acute appendicitis, other surgical pathology abdomen, nephrolithiasis, pyelonephritis, obstruction or perforation ALL IMAGES (IF OBTAINED) HAVE BEEN PERSONALLY REVIEWED AND INTERPRETED BY MYSELF. Triage labs were placed including CBC, CMP, lipase, urinalysis. CBC without leukocytosis, severe anemia, no thrombocytopenia. CMP without evidence of acute kidney injury, significant electrolyte abnormality, anion gap to suggest end organ hypo-perfusion, no evidence of metabolic acidosis with a normal bicarbonate, no evidence of hepatobiliary obstructive pathology. Lipase is wnl indicating no pancreatic inflammation. Urinalysis shows no evidence of urinary inflammation suggestive of UTI After evaluating the patient I added: 1 L normal saline, 4 mg IV morphine, 15 mg IV Toradol and a CT scan of the abdomen pelvis CT scan of the abdomen pelvis with evidence of constipation otherwise no significant surgical pathology noted No indication for surgical consultation or admission at this time. Bowel regiment recommended. Return precautions discussed. The patient and/or family, caregivers express understanding. The patient and/or family, caregivers agrees with the plan. Shared decision making: I will have a discussion with the patient and or visitors regarding risk/benefits of further testing or admission. They will be made aware of of the risk/benefits inherent in this decision they will be given the opportunity to voice understanding. Total critical care time today provided was at least 0 minutes. This excludes separately billable procedures. Critical care time (if documented) is secondary to the patient having high probability of clinically significant/life threatening deterioration in the patient's condition which required my urgent intervention. Impression: 1. Acute abdominal pain 2. Constipation Dispo: Discharge home This note was generated with [employer] dictation software. It may contain incorrect words, spelling, and punctuation that were not noted in review of the chart prior to signing. Lab Data Labs: Laboratory Results - last 24 hr 02/23/25 02/23/25 16:32 18:30 WBC 10.9 RBC 4.59 Hgb 14.4 Hct 42.3 MCV 92.2 MCH 31.4 MCHC 34.0 RDW Std Deviation 43.1 RDW Coeff of Armando 12.8 Plt Count 258 MPV 8.9 Immature Gran % (Auto) 0.500 Neut % (Auto) 67.3 Lymph % (Auto) 23.3 [place] % (Auto) 7.1 Eos % (Auto) 1.3 Baso % (Auto) 0.5 Absolute Neuts (auto) 7.3 Absolute Lymphs (auto) 2.53 Nucleated RBC % 0 Sodium 139 Potassium 4.3 Chloride 102 Carbon Dioxide 26.5 Anion Gap 10 BUN 21 H Creatinine 0.84 Estim Creat Clear Calc 62.16 Est GFR (MDRD) Non-Af 71 BUN/Creatinine Ratio 25.1 H Glucose 99 Calcium 9.5 Total Bilirubin 0.32 AST 17 ALT 10 Alkaline Phosphatase 139 H Total Protein 7.6 Albumin 4.0 Globulin 3.6 Albumin/Globulin Ratio 1.1 Lipase 21 Urine Color Straw Urine Clarity Clear Urine pH 6.5 Ur Specific [place] 1.005 Urine Protein Negative Urine Glucose (UA) Normal Urine Ketones Negative Urine Occult Blood Negative Urine Nitrite Negative Urine Bilirubin Negative Urine Urobilinogen Normal Ur Leukocyte Esterase 25 H Urine RBC 0-5 SEEN Urine WBC 0-5 SEEN Ur Squamous Epith Cells 0 SEEN Urine Bacteria 0 SEEN Urine Mucus 0 SEEN Radiography Diagnostic Testing: Clinical Impression(s) from Imaging Studies Abdomen/Pelvis CT 02/23/25 18:28 IMPRESSION: 1. Small esophageal hiatal hernia. 2. Fecal retention in the colon consistent with constipation. 3. Umbilical hernia containing fat. 4. No obstructive uropathy. 5. Degenerative changes lumbar spine as described. Reading Location: [facility] Discharge Plan Triage Chief Complaint: Abd Pain ED Provider: Johnnie Navarro Dx/Rx/DC Orders Instructions: ED Constipation (Adult) Prescriptions: No Action Vasculera 630 mg tablet 1 tab PO QDAY Qty: 30 2RF triamcinolone acetonide 0.5 % cream 1 applic topical BID 14 Days Qty: 15 1RF spironolacton-hydrochlorothiaz [Aldactazide] 1 EACH tablet 1 ea PO DAILY Patient Comments: blood pressure/diuretic had 12/02/15 levothyroxine [Levoxyl] 200 MCG tablet 200 mcg PO DAILY Patient Comments: thyroid had dose 12/02/15 amlodipine [Norvasc] 2.5 mg tablet 5 mg PO DAILY cholecalciferol (vitamin D3) [Vitamin D3] 125 mcg (5,000 unit) Tablet 125 mcg PO DAILY acetaminophen [Tylenol] 325 mg Tablet 650 mg PO Q4H PRN PRN (Reason: Fever, pain 1-07/24) Qty: 0 0RF C Complex 1,000 mg tablet extended release 500 mg PO DAILY Primary Care Provider: Suzie Huff Referrals: Suzie Huff MD [Primary Care Provider] - Friend,DO Aki [Med Staff - Active Staff] - Activity Restrictions/Additional Instructions: Thank you for trusting us with your care today! Your labs/images were overall reassuring. There is no sign of significant issues with your blood counts, electrolytes, kidney function, liver function and pancreas function. Your urine was not infected. Your CT scan did not show signs of an acute surgical emergency. It did show signs of constipation. To treat constipation at home I recommend drinking more fluid, eating fiber 1 cereal every morning and starting a bowel regiment which consist of Colace, MiraLAX and senna. If you do these things you will have regular bowel movements your pain will likely improve Please take Tylenol (2 pills, 650 mg), ibuprofen (2 pills, 400 mg) every 6 hours as needed for pain and fever control. Please return to the emergency department if your symptoms change or worsen. Please follow with your primary care physician for further outpatient evaluation and management. Print Language: Ukrainian Disposition Disposition: Home, Self Care Discharge Date/Time: 02/23/25 23:36
--- NOTE | 2025-02-23 18:28 | CT_ITS ---
EXAM: CT Abdomen and Pelvis With Intravenous Contrast CLINICAL INDICATION: RIGHT SIDED ABDOMINAL PAIN TECHNIQUE: Axial computed tomography images of the abdomen and pelvis with intravenous contrast. This CT exam was performed using one or more of the following dose reduction techniques: automated exposure control, adjustment of the mA and/or kV according to patient size, and/or use of iterative reconstruction technique. COMPARISON: No relevant prior studies available. FINDINGS: LUNG BASES: Unremarkable. No mass. No consolidation. MEDIASTINUM: Small esophageal hiatal hernia. ABDOMEN: LIVER: Fatty infiltration of the liver. GALLBLADDER AND BILE DUCTS: Unremarkable. No calcified stones. No ductal dilation. PANCREAS: Unremarkable. No mass. No ductal dilation. SPLEEN: Unremarkable. No splenomegaly. ADRENALS: Unremarkable. No mass. KIDNEYS AND URETERS: Unremarkable. No stones within either kidney. No hydronephrosis. STOMACH AND BOWEL: Fecal retention in the colon consistent with constipation. No obstruction. No mucosal thickening. PELVIS: APPENDIX: No findings to suggest acute appendicitis. BLADDER: Unremarkable. No mass. REPRODUCTIVE: Unremarkable as visualized. ABDOMEN and PELVIS: INTRAPERITONEAL SPACE: Unremarkable. No free air. No significant fluid collection. BONES/JOINTS: Degenerative disc disease throughout the lumbar spine. Degenerative facet arthropathy throughout the lumbar spine, most prominent in the lower lumbar spine. No acute fracture. No dislocation. SOFT TISSUES: Umbilical hernia containing fat. VASCULATURE: Scattered calcified atherosclerotic disease of aorta. No abdominal aortic aneurysm. LYMPH NODES: Unremarkable. No enlarged lymph nodes. CT/Abdomen/Pelvis W IV Cont ONLY IMPRESSION: 1. Small esophageal hiatal hernia. 2. Fecal retention in the colon consistent with constipation. 3. Umbilical hernia containing fat. 4. No obstructive uropathy. 5. Degenerative changes lumbar spine as described. Reading Location: [id number]
[2025-02-23] MEDS: Ondansetron 4 MG/2 ML Vial IV (18:36)
[2025-02-23] MEDS: Ketorolac 15 MG/ML Vial IV (18:36)
[2025-02-23] MEDS: Morphine 4 MG/ML Syringe IV (18:37)
[2025-02-23 18:49] LABS: Bacteria 0 SEEN /hpf (None Seen); Mucous, Urine 0 SEEN /hpf (<or=2+); Squamous Epithelial Cells - UA 0 SEEN /hpf (5-10)
[2025-02-23 20:00] VITALS: BP 125/54; PULSE 66; RESP 16; O2SAT 95
[2025-02-23 20:09] LABS: Color, Urine Straw (Yellow); Glucose, Dipstick Normal (Normal); Ketone-Dipstick Negative (Negative); Leukocyte Esterase-Dipstick 25 /ul (Negative); Nitrite-Dipstick Negative (Negative); Occult Blood-Urine Negative /ul (Negative); Protein-Dipstick Negative (Negative); Specific Gravity, Urine 1.005 (1.002-1.030); Urine Bilirubin Dipstick Negative (Negative); Urine Clarity Clear (Clear); Urine Urobilinogen Normal (Normal); Urine pH 6.5 (5.0 - 8.0)
[2025-02-23 21:24] LABS: Red Blood Cells-Urine 0-5 SEEN /hpf (0-5); White Blood Cells 0-5 SEEN /hpf (0-5)
[2025-02-23 22:00] VITALS: BP 121/62; PULSE 59; RESP 16; O2SAT 96
[2025-02-23 23:32] VITALS: BP 140/61; PULSE 62; RESP 16; TEMP 37.1; O2SAT 92
== END 2025-02-23 23:36 | disposition home or self-care (01) ==
PROVIDERS: Emergency Provider Emergency Medicine; PCP Internal Medicine; Referring Provider Emergency Medicine; Visit Provider Emergency Medicine
DX: R10.9 Unspecified abdominal pain (principal); I10 Essential (primary) hypertension; G47.30 Sleep apnea, unspecified; E03.9 Hypothyroidism, unspecified; Z79.899 Other long term (current) drug therapy
CPT/HCPCS: 74177; 80053; 81001; 83690; 85025; 96374; 96375; 99283; Q9967; A4216; J2405

== ENCOUNTER 2025-08-22 12:33 | Emergency (ER) | payer MEDICARE, SELFPAY ==
[2025-08-22 12:34] VITALS: BP 183/50; PULSE 77; RESP 18; TEMP 36.6; O2SAT 100; BMI 39.1
--- NOTE | 2025-08-22 13:32 | CM.ED ---
Social Work Date of referral: 08/22/25 Reason for referral: Advanced Care Directives (ACD's) not on file. Referred by: Social Work Identification Patient provided consent to social work visit. Remote Sensing Analyst requested a copy of ACD's which patient agreed to bring in. Millicent Wade, STORY EDITOR, SENIOR SAFETY SUPPORT MANAGER
--- NOTE | 2025-08-22 13:35 | ED.VIS.LOWEX ---
HPI History of Present Illness Chief Complaint: Laceration Informant: patient and spouse/S.O. Narrative Narrative: 80-year-old female presenting to the emergency room with a chief complaint of bleeding from her leg. Patient states she was out shopping and started having bleeding from the lateral aspect of her left thigh. Patient has a history of varicose veins as well as chronic venous stasis/insufficiency. She is not anticoagulated. [facility] Medical History Morbid obesity Psoriatic arthritis Chronic pain CPAP (continuous positive airway pressure) dependence Sleep apnea Hypertension Cellulitis Hypothyroidism Home Medications ?Medication ?Instructions ?Recorded ?Last Taken ?Type levothyroxine 200 mcg tablet 200 mcg PO DAILY THYROID 12/01/15 06/27/20 History (Levoxyl) spironolactone 25 1 ea PO DAILY 12/01/15 06/27/20 History mg-hydrochlorothiazide 25 mg tablet (Aldactazide) cholecalciferol (vitamin D3) 125 125 mcg PO DAILY supplement 06/11/21 Unknown History mcg (5,000 unit) tablet (Vitamin D3) acetaminophen 325 mg tablet 650 mg (2 x 325 mg) PO Q4H PRN PRN 06/14/21 Unknown Rx (Tylenol) Fever, pain 1-07/24 #0 tabs amlodipine 2.5 mg tablet (Norvasc) 5 mg PO DAILY BP 10/17/24 Unknown History triamcinolone acetonide 0.5 % 1 applic topical BID 14 days #15 12/27/24 Unknown Rx topical cream grams ascorbic acid (vitamin C) 1,000 mg 500 mg PO DAILY 02/23/25 Unknown History tablet,extended release (C Complex) diosmin complex no.1 630 mg tablet 1 tab PO QDAY #30 tabs 05/19/25 Unknown Rx (Vasculera) Allergy/AdvReac Type Severity Reaction Status Date / Time hydrocodone bitartrate (From AdvReac Nausea Verified 07/17/25 08:45 Vicodin) Family History Mother Cancer Breast cancer. Brain aneurysm Father Cancer Lung cancer with concurrent tobacco use history. Surgical History H/O shoulder surgery S/P tubal ligation History of cholecystectomy Social History household members: spouse Smoking Status: Never smoker alcohol intake: never substance use type: does not use ROS ROS ED Constitutional Constitutional ED: Denies chills or weight loss Eyes Eyes: Denies change in vision or diplopia ENT ENT ED: Denies ear pain, rhinorrhea or sore throat Cardiovascular Cardiovascular: Denies chest pain, orthopnea, palpitations or racing heartbeat Respiratory/Chest Respiratory/Chest: Denies cough, dyspnea or orthopnea Gastrointestinal Gastrointestinal: Denies abdominal pain, diarrhea, nausea or vomiting Genitourinary Genitourinary ED: Denies dysuria, hematuria or urinary frequency Musculoskeletal Musculoskeletal: Reports other Details: See history of present illness ; Denies arthralgias or myalgias Integumentary Denies abscess or rash Neurologic Neurologic: Denies headache(s) or weakness Psychiatric Psychiatric: Denies anxiety, depression, suicidal ideation or suicidal thoughts Endocrine Endocrinology: Denies polydipsia, polyphagia or polyuria Allergic/Immunologic Allergic/Immunologic ED: Denies mouth swelling, tongue swelling or urticaria EXAM Physical Exam Const Vital Signs: 08/22/25 12:34 Temperature 97.8 F Temperature Source Oral Pulse Rate 77 Respiratory Rate 18 Blood Pressure 183/50 H Blood Pressure Mean 94 Pulse Ox 100 Oxygen Delivery Method Room Air Positive well nourished, well developed and obese General Appearance ED: well developed and NAD Nutritional Appearance: obese HEENT Reports normocephalic, head/scalp atraumatic and moist mucous membranes Eyes PERRL and EOMs intact bilaterally Neck no lymphadenopathy, supple and no JVD Resp normal respiratory effort and clear to auscultation bilaterally Cardio regular rate, regular rhythm and no murmurs GI normal to inspection, nondistended, normoactive bowel sounds and non-tender Palpation: soft Back/Spine no CVA tenderness and normal ROM Extremity Extremity Narrative: There are numerous varicosities and spider veins of the bilateral legs. Located on the mid lateral left thigh is a varicose vein that has active venous bleeding. Direct pressure resolves the bleeding. General Extremety ED: Negative for edema General Extremity: Negative for edema Neuro oriented x3 and CN's II-XII intact bilaterally Sensorium / Orientation: alert Motor Exam: strength 5/5 throughout Psych mental status grossly normal Mood & Affect: Negative for depressed or tearful Skin no rashes or lesions noted and no wounds MDM MDM MDM Narrative Medical decision making narrative: Differential diagnosis is acute bleeding from varicose vein, venous insufficiency, anticoagulation, anemia, venous ulcers Date able to hold pressure above and below the vein resulted in stopping of the blood flow. I was able to clean the area and noticed about a 2 mm hole along the vein. 1% lidocaine with epinephrine was used to anesthetize the skin. 2 simple interrupted 4-0 Ethilon sutures were used to pursestring close the wound. Gelfoam was then applied and then a Gino wrap. Good homeostasis was achieved. Local wound care was discussed with the patient. She is to monitor this and return if worsening or concerns History & Record Review Discussion w/independent historian: Patient and Family Discharge Plan Triage Chief Complaint: Laceration ED Provider: Timoteo Abarca Dx/Rx/DC Orders Clinical Impression: Bleeding from varicose vein Instructions: ED Varicose Veins Prescriptions: No Action triamcinolone acetonide 0.5 % cream 1 applic topical BID 14 Days Qty: 15 1RF spironolacton-hydrochlorothiaz [Aldactazide] 1 EACH tablet 1 ea PO DAILY Patient Comments: blood pressure/diuretic had 12/02/15 levothyroxine [Levoxyl] 200 MCG tablet 200 mcg PO DAILY Patient Comments: thyroid had dose 12/02/15 amlodipine [Norvasc] 2.5 mg tablet 5 mg PO DAILY cholecalciferol (vitamin D3) [Vitamin D3] 125 mcg (5,000 unit) Tablet 125 mcg PO DAILY acetaminophen [Tylenol] 325 mg Tablet 650 mg PO Q4H PRN PRN (Reason: Fever, pain 1-07/24) Qty: 0 0RF C Complex 1,000 mg tablet extended release 500 mg PO DAILY Vasculera 630 mg tablet 1 tab PO QDAY Qty: 30 2RF Primary Care Provider: Suzie Huff Referrals: Suzie Huff MD [Primary Care Provider, Internal Medicine] - 5 Days for suture removal Activity Restrictions/Additional Instructions: I would recommend taking down the dressing in 48 hours. As you take down the dressing remove the Gino wrap first and then the you will find a small enough gauze. Underneath the gauze there will be what appears to be a cottonball but is actually called Gelfoam. Sometimes this is stuck to the skin and getting into the shower or getting it wet makes it easier to come off. I would not try to pick a scab. After you remove the dressing you can put a Band-Aid on with some bacitracin ointment once or twice a day. Stitches will need to be removed in 5 days. Print Language: Gibraltarian Disposition Disposition: Home, Self Care
[2025-08-22] MEDS: Lidocaine 1% /Epi 1:100 (20ml) 20 ML Vial INFILT (13:42)
[2025-08-22 13:47] VITALS: BP 139/51
[2025-08-22 13:49] VITALS: BP 139/51; PULSE 75; RESP 18; TEMP 36.7; O2SAT 96
== END 2025-08-22 13:51 | disposition home or self-care (01) ==
PROVIDERS: Emergency Provider Emergency Medicine; PCP Internal Medicine; Visit Provider Emergency Medicine
DX: I83.892 Varicose veins of left lower extremity with other complications (principal); I10 Essential (primary) hypertension; E66.9 Obesity, unspecified; Z68.39 Body mass index [BMI] 39.0-39.9, adult; Z79.899 Other long term (current) drug therapy
CPT/HCPCS: 12001; 99284